=== PATIENT | male | born 1945 | race Caucasian/White ===

== ENCOUNTER → 2020-09-16 09:53 | Outpatient (REF) | payer MEDICARE, SELFPAY | LOC: HO.SL 09:53 | PROVIDERS: PCP Internal Medicine; Visit Provider Hospitalist | DX: Z13.89 Encounter for screening for other disorder (principal) ==

== ENCOUNTER → 2021-01-07 09:00 | Outpatient (REF) | payer MEDICARE, SELFPAY | LOC: HO.SL 09:00 | PROVIDERS: Visit Provider Hospitalist | DX: G47.33 Obstructive sleep apnea (adult) (pediatric) (principal); R40.0 Somnolence; R06.83 Snoring | CPT/HCPCS: 95806 ==

== ENCOUNTER → 2021-01-07 09:40 | Outpatient (BNVA) | payer MEDICARE, SELFPAY | PROVIDERS: PCP Internal Medicine; Visit Provider Hospitalist | DX: J39.8 Other specified diseases of upper respiratory tract (principal); J41.8 Mixed simple and mucopurulent chronic bronchitis; G47.33 Obstructive sleep apnea (adult) (pediatric); J31.0 Chronic rhinitis | CPT/HCPCS: 99212 ==

== ENCOUNTER → 2021-03-17 13:42 | Outpatient (BNVA) | payer MEDICARE, SELFPAY | PROVIDERS: PCP Internal Medicine; Visit Provider Hospitalist | DX: J39.8 Other specified diseases of upper respiratory tract (principal); J41.8 Mixed simple and mucopurulent chronic bronchitis; J31.0 Chronic rhinitis; J18.0 Bronchopneumonia, unspecified organism; G47.33 Obstructive sleep apnea (adult) (pediatric) | CPT/HCPCS: 99212 ==

== ENCOUNTER → 2021-03-25 10:44 | Outpatient (BNVA) | payer MEDICARE, SELFPAY | PROVIDERS: PCP Internal Medicine; Visit Provider Hospitalist | DX: Z13.89 Encounter for screening for other disorder (principal) | CPT/HCPCS: 96372; 99212 ==

== ENCOUNTER 2021-03-25 12:17 | Inpatient (IN) | payer OTHER, MEDICARE, SELFPAY ==
[2021-03-25] VITALS (12 sets, daily range): BP systolic 136–188; BP diastolic 63–82; PULSE 80–95; RESP 14–24; TEMP 36.7–37; O2SAT 91–97; BMI 29.5
--- NOTE | ~2021-03-25 | XR_ITS ---
EXAMINATION: XR CHEST CLINICAL INFORMATION: Hypoxia. Crackles. Evaluate for pneumonia. COMPARISON: Previous chest x-ray from yesterday TECHNIQUE: Frontal view of the chest was obtained. FINDINGS: The cardiac and mediastinal contours are stable. There is atelectasis at the left lung base. The lungs are otherwise clear. There is no pleural effusion or pneumothorax. There are degenerative changes of the spine. XR/XR chest 1V IMPRESSION: Atelectasis at the left lung base.
--- NOTE | ~2021-03-25 | XR_ITS ---
EXAMINATION: XR CHEST CLINICAL INFORMATION: Shortness of breath COMPARISON: None TECHNIQUE: Frontal view of the chest was obtained. FINDINGS: No significant abnormality is noted involving the heart, lungs, mediastinum, bony thorax or soft tissues. XR/XR chest 1V IMPRESSION: Unremarkable examination.
--- NOTE | 2021-03-25 12:44 | ECG_ITS ---
Test Reason : SHORT OF BREATH Blood Pressure : / mmHG Vent. Rate : 080 BPM Atrial Rate : 080 BPM P-R Int : 158 ms QRS Dur : 094 ms QT Int : 424 ms P-R-T Axes : 090 071 071 degrees QTc Int : 489 ms Normal sinus rhythm Nonspecific ST abnormality Prolonged QT Abnormal ECG No previous ECGs available Referred By: France Lord Electronically Signed By:MARY WALKER MD
[2021-03-25 13:31] LABS: Adenovirus PCR Not Detected (Not Detect.); Bordetella parapertussis PCR Not Detected (Not Detect.); Bordetella pertussis PCR Not Detected (Not Detect.); Chlamydia pneumoniae PCR Not Detected (Not Detect.); Coronavirus 229E PCR Not Detected (Not Detect.); Coronavirus HKU1 PCR Not Detected (Not Detect.); Coronavirus NL63 PCR Not Detected (Not Detect.); Coronavirus OC43 PCR Not Detected (Not Detect.); Human metapneumovirus PCR Not Detected (Not Detect.); Influenza A PCR Not Detected (Not Detect.); Influenza B PCR Not Detected (Not Detect.); Mycoplasma pneumoniae PCR Not Detected (Not Detect.); Parainfluenza 1 PCR Not Detected (Not Detect.); Parainfluenza 2 PCR Not Detected (Not Detect.); Parainfluenza 3 PCR Not Detected (Not Detect.); Parainfluenza 4 PCR Not Detected (Not Detect.); RSV PCR Not Detected (Not Detect.); SARS-CoV-2 PCR Not Detected (Not Detect.)
[2021-03-25 13:36] LABS: Basophils Percent Auto 0.2 % (0-2); Hematocrit 41.9 % (42-52); Hemoglobin 14.3 g/dl (14.0-18.0); Imm Gran Abs Auto 0.14 X10*3/uL (0.00-0.03); Imm Gran Pct Auto 1.2 % (0.0-0.4); Lymphocytes Absolute Auto 0.4 X10*3/uL (1.2-4.9); Lymphocytes Percent Auto 3.4 % (20-40); MANUAL DIFF FLAG SCAN; Mean Corpuscular HGB Conc 34.1 g/dl (31.0-36.0); Mean Corpuscular Hemoglobin 31.5 pg (27.0-33.0); Mean Corpuscular Volume 92.3 fL (80-98); Mean Platelet Volume 9.7 fL (9.4-12.4); Monocytes Absolute Auto 0.4 X10*3/uL (0.1-1.2); Monocytes Percent Auto 3.1 % (2-11); Neutrophils Absolute Auto 11.2 X10*3/uL (2.0-8.3); Neutrophils Percent Auto 92.1 % (45-73); Platelet Count 192 X10*3/uL (160-400); Red Blood Count 4.54 X10*6/uL (4.60-5.80); Red Cell Distribution Width 13.2 % (11.0-16.0); SCAN SMEAR FLAG 1; White Blood Count 12.1 X10*3/uL (4.8-10.8)
[2021-03-25 13:39] LABS: INTERNATIONAL NORM RATIO 1.7 (0.9-1.1); Prothrombin Time 20.3 SEC (10.8-13.0)
[2021-03-25 13:59] LABS: SLIDE REVIEW VERIFIED
[2021-03-25] MEDS: Magnesium Sulfate/H2O 2 GM/50 ML PIGGYBACK IV (13:59)
[2021-03-25 14:03] LABS: Alanine Aminotransferase 26 U/L (0-40); Albumin Level 4.1 g/dL (3.5-5.0); Alkaline Phosphatase 52 U/L (39-117); Anion Gap 19 (12-20); Aspartate Amino Transferase 16 U/L (5-37); Bilirubin Total 0.4 mg/dL (0.0-1.0); Blood Urea Nitrogen 28 mg/dL (9-16); Calcium 9.9 mg/dL (8.4-10.2); Carbon Dioxide 24 mmol/L (22-29); Chloride 99 mmol/L (96-108); Creatinine Clr Calc Pharmacy 53.3; Estimated Glomerular Filt Rate 46; Glucose Random 265 mg/dL (60-115); Magnesium 1.9 mg/dL (1.6-2.6); Potassium 4.7 mmol/L (3.3-5.1); Sodium 137 mmol/L (135-145); Total Protein 6.5 g/dL (6.5-8.0)
[2021-03-25 14:09] LABS: B Type Natriuretic Peptide 26 pg/mL (<100)
[2021-03-25 14:45] LABS: Rhino/Enterovirus PCR Detected (Not Detect.)
--- NOTE | 2021-03-25 15:14 | ED.SOB ---
HPI - SOB/Dyspnea General Chief Complaint: Dyspnea Stated Complaint: o2 low Time Seen by Provider: 03/25/21 12:28 Source: patient and family Mode of arrival: ambulatory Limitations: no limitations History of Present Illness HPI Narrative: 75-year-old male with a past medical history of chronic bronchitis, COPD, tracheobronchomalacia presenting to the ED after being sent by the usability architect Dr. Andrew Elkins for worsening respiratory symptoms which include cough, chest congestion, wheezing and shortness of breath for the past 3 weeks. he was being treated with p.o. steroids and his inhalers by the usability architect as an outpatient basis although over the weekend his symptoms got worse and he went to ER at [facility]. He was given additional steroids. He was kept on the doxycycline. The patient continued using the nebulizer around the clock. He also had a chest x-ray demonstrating opacity to the left lower lung zone. Also dealing with thrush from being on the steroids. He was given 125 mg of IM Solu-Medrol and 2 treatments with Xopenex while at the usability architect's office and then they ambulated the patient after the IM steroids and the 2 treatments and his oxygen saturation desatted to 86% on room air therefore they symptom here for further evaluation and treatment. MD elicited complaint: shortness of breath and cough Pertinent past history: COPD and other ( Chronic bronchitis and tracheobronchomalacia) Onset (ago): week(s) ( 3 weeks worse over the weekend) Context: recent illness Timing: constant and progressively worsening Severity: severe Exacerbating factors: movement, coughing, inspiration, talking, deep breaths and other ( walking) Relieving factors: rest and upright position Known history of: COPD and other ( chronic bronchitis and tracheobronchomalacia) Associated symptoms: wheezing and chest congestion Treatment prior to arrival: none ( IM 125 mg of Solu-Medrol, 2 Xopenex treatments and multiple courses of steroids) Related Data Home oxygen amount: none Home Medications Medication Instructions Recorded Confirmed diltiazem HCl 240 mg 240 mg PO DAILY 09/08/20 03/25/21 capsule,extended release 24 hr metoprolol succinate 25 mg 25 mg PO BEDTIME 09/08/20 03/25/21 tablet,extended release 24 hr albuterol sulfate 2.5 mg INHALATION Q4-6H PRN 01/07/21 03/25/21 apixaban 5 mg tablet 5 mg PO BID 01/07/21 03/25/21 cetirizine 10 mg tablet 10 mg PO DAILY PRN 01/07/21 03/25/21 rosuvastatin 20 mg tablet 20 mg PO BEDTIME 01/07/21 03/25/21 nitroglycerin 0.4 mg sublingual 0.4 mg SUBLINGUAL Q5M PRN 03/17/21 03/25/21 tablet amiodarone 50 mg PO MOWEFR 03/25/21 03/25/21 cholecalciferol (vitamin D3) 100 mcg PO DAILY 03/25/21 03/25/21 [Vitamin D3] ipratropium bromide 1 spray INTRANASAL BEDTIME 03/25/21 03/25/21 metformin 2 tab PO BIDWM 03/25/21 03/25/21 prednisone 60 mg PO DAILY 03/25/21 03/25/21 valsartan-hydrochlorothiazide 1 tab PO DAILY 03/25/21 03/25/21 Previous Rx's Medication Instructions Recorded tiotropium bromide 2.5 2 inh INHALATION DAILY #3 ea 12/29/20 mcg/actuation mist for inhalation fluticasone 500 mcg-salmeterol 50 1 inh INHALATION BID #60 ea 02/03/21 mcg/dose blistr powdr for inhalation doxycycline hyclate 100 mg capsule 100 mg PO BID 10 Days #20 cap 03/17/21 nystatin 500,000 unit tablet 500,000 unit PO TID 10 Days #30 tab 03/24/21 Allergies Allergy/AdvReac Type Severity Reaction Status Date / Time No Known Allergies Allergy Verified 03/25/21 12:46 Review of Systems Review of Systems: Constitutional : No Weight loss, No Fever, No Chills, No Night Sweats, No Fatigue, No Malaise ENT/Mouth : No Hearing loss, No Ear Pain, No Nasal Congestion, No Sinus Pain, No Hoarseness, No sore throat, No Rhinorrhea, No Swallowing Difficulty Eyes: No Eye Pain, No Swelling, No Redness, No Foreign Body, No Discharge, No Vision Changes Cardiovascular : positive shortness of breath /dyspnea on exertion/orthopnea, No Chest Pain, No Edema, No extremity swelling, No Palpitations Respiratory : Positive Cough / sputum/wheezing Gastrointestinal : No Nausea, No Vomiting, No Diarrhea, No abdominal Pain, No Hematochezia, No Melena Genitourinary : No irregular bleeding, No Dysuria, No Urinary Frequency, No Hematuria, No Urinary Incontinence, No Urgency, No Flank Pain, No Urinary Flow Changes, No Hesitancy Musculoskeletal : No joint pain, No Myalgias, No Joint Swelling Skin : No Skin Lesions, No rash Neuro : No Weakness, No Numbness, No Paresthesias, No Loss of Consciousness, No Dizziness, No Headache Psych : No Anxiety/Panic, No Depression, No SI/HI/AH/VH Heme/Lymph: No Bruising, No Bleeding,No Lymphadenopathy Endocrine : No Polyuria, No Polydipsia, No Temperature Intolerance Yes all other systems are reviewed and are negative [facility] Past Medical History Attestation statement: The following information was validated with the patient. Medical History Bronchopneumonia Chronic rhinitis COPD (chronic obstructive pulmonary disease) AIRAM (obstructive sleep apnea) Tracheobronchomalacia Social History Social History Alcohol intake: never Patient Tobacco Use Status: Never used Tobacco Use of substances other than those prescribed or required for medical reasons: No Advance Directives: Yes Advance Directives Information Provided: Yes Advance Directives on File: No Physical Exam Vital Signs: Vital Signs: Last Vital Signs Pulse 80 03/25/21 14:41 Resp 24 H 03/25/21 14:41 BP 183/76 H 03/25/21 14:41 Pulse Ox 96 03/25/21 14:41 Oxygen Flow Rate 2 03/25/21 12:27 Body Mass Index 29.5 vital signs have been reviewed as normal and appeared to be correct. Blood pressure Hypertensive 169/72. Heart rate normal. Respiration rate normal. Temperature normal. Oxygen saturation hypoxic now on 2 L of nasal cannula oxygen saturating at 95% on the 2 L . Appearance: Alert. Oriented X3. Acute respiratory acute distress. Head: Normal external exam. Normocephalic. Atraumatic. Eyes: PERRLA. EOMI. Conjunctiva and sclera normal. Eyelids normal. ENT: Pharynx normal. Uvula midline. Moist mucous membranes. No trismus noted. No drooling noted. No muffled voice noted. Neck: Normal inspection. Neck supple. FROM. No adenopathy. Thyroid Normal. No meningeal signs. No neck mass noted. CVS: Normal heart rate and rhythm. Heart sound normal. Pulses normal throughout. No murmurs/rales/gallops. Respiratory: Acute respiratory distress pain with inspiration mild decreased breath sounds. No wheezes/rales/rhonchi noted. Chest nontender. No accessory muscle usage noted or decreased air movement noted. Abdomen: Soft and nontender. Bowel sounds normal in all 4 quadrants. No distention noted. No organomegaly noted. No visible injury noted. Back: Full range of motion noted. No rashes/lesion/induration/fluctuance or signs of infection noted. Skin: Skin warm and dry. Normal skin color. Normal skin turgor. No rashes/lesions/lacerations noted. Extremities: positive lower extremity edema bilaterally. No calf tenderness is noted. Extremities exhibit normal range of motion. Extremities nontender. Neuro: Oriented X 3. No motor deficit. No sensory deficit. Reflexes normal. Normal steady gait. No focal neuro deficits noted. Vascular: + radial pulses/+ 2 distal pedal pulses/+2 dorsalis pedis b/l. Normal cap refill. No cyanosis noted to upper extremity nails and lower extremity toes nails. Course Course Course Narrative: 12:43 - 75-year-old male with a past medical history of chronic bronchitis, COPD, tracheobronchomalacia presenting to the ED after being sent by the usability architect Dr. Andrew Elkins for worsening respiratory symptoms which include cough, chest congestion, wheezing and shortness of breath for the past 3 weeks. He was being treated with p.o. steroids and his inhalers by the usability architect as an outpatient basis although over the weekend his symptoms got worse and he went to ER at [facility]. He was given additional steroids. He was kept on the doxycycline. The patient continued using the nebulizer around the clock. He also had a chest x-ray demonstrating opacity to the left lower lung zone. Also dealing with thrush from being on the steroids. He was given 125 mg of IM Solu-Medrol and 2 treatments with Xopenex while at the usability architect's office and then they ambulated the patient after the IM steroids and the 2 treatments and his oxygen saturation desatted to 86% on room air therefore they symptom here for further evaluation and treatment. Plan: Labs, chest x-ray, EKG, respiratory panel. Provide 2 mg of IV magnesium and 10 mg of Robitussin with codeine then re-evaluate. Reevaluation(s) Reevaluation #1: - White blood cell count [id number] although this is most likely related to the patient's steroid usage over the past 3 weeks. BUN and creatinine 28/1.50 patient is most likely dehydrated. Random glucose 265 this is most likely related to the steroid usage for the past 3 weeks. All other labs are within normal limits. chest x-ray was negative for pneumonia or any other acute processes. EKG normal sinus rhythm with ventricular rate of [address] abnormalities and a prolonged QT of 424 milliseconds otherwise no acute ischemic changes are noted. Patient positive for Entero/Rhino virus. Negative for all other viruses including flu and COVID. - Therefore at this time patient will be admitted for chronic bronchitis being exacerbated from Entero/Rhino Virus. KRYS From dehydration. Not sepsis. therefore at this time patient will be admitted. Patient and family at bedside understand and agree with this plan. Time: 15:36 MDM - SOB/Dyspnea Medical Records Attestation: I reviewed the patient's medical records. Lab Data Attestation: I reviewed the patient's lab results. Result diagrams: 03/25/21 13:20 03/25/21 13:20 Labs: Lab Results 03/25/21 03/25/21 03/25/21 Range/Units 13:20 13:20 13:20 WBC 12.1 H (4.8-10.8) X10*3/uL RBC 4.54 L (4.60-5.80) X10*6/uL Hgb 14.3 (14.0-18.0) g/dl Hct 41.9 L (42-52) % MCV 92.3 (80-98) fL MCH 31.5 (27.0-33.0) pg MCHC 34.1 (31.0-36.0) g/dl RDW 13.2 (11.0-16.0) % Plt Count 192 (160-400) X10*3/uL MPV 9.7 (9.4-12.4) fL Immature Gran % (Auto) 1.2 H (0.0-0.4) % Neut % (Auto) 92.1 H (45-73) % Lymph % (Auto) 3.4 L (20-40) % [place] % (Auto) 3.1 (2-11) % Eos % (Auto) 0.0 (0-4) % Baso % (Auto) 0.2 (0-2) % Lymph # (Auto) 0.4 L (1.2-4.9) X10*3/uL [place] # (Auto) 0.4 (0.1-1.2) X10*3/uL Eos # (Auto) 0.0 (0.0-0.4) X10*3/uL Baso # (Auto) 0.0 (0.0-0.2) X10*3/uL Abs Immat Gran (auto) 0.14 H (0.00-0.03) X10*3/uL Absolute Neuts (auto) 11.2 H (2.0-8.3) X10*3/uL Absolute Nucleated RBC 0.000 (0.0-0.012) X10*3/uL Nucleated RBC % (auto) 0.0 (0.0-0.2) /100WBC Smear Tech's Comments VERIFIED PT 20.3 H (10.8-13.0) SEC INR 1.7 H (0.9-1.1) Sodium 137 (135-145) mmol/L Potassium 4.7 (3.3-5.1) mmol/L Chloride 99 (96-108) mmol/L Carbon Dioxide 24 (22-29) mmol/L Anion Gap 19 (12-20) BUN 28 H (9-16) mg/dL Creatinine 1.50 H (0.5-1.4) mg/dL Estim Creat Clear Calc 53.3 Estimated GFR 46 Random Glucose 265 H (60-115) mg/dL Calcium 9.9 (8.4-10.2) mg/dL Magnesium 1.9 (1.6-2.6) mg/dL Total Bilirubin 0.4 (0.0-1.0) mg/dL AST 16 (5-37) U/L ALT 26 (0-40) U/L Alkaline Phosphatase 52 (39-117) U/L B-Natriuretic Peptide (<100) pg/mL Total Protein 6.5 (6.5-8.0) g/dL Albumin 4.1 (3.5-5.0) g/dL Respiratory Panel Mueller Adenovirus (Rapid PCR) (Not Detect.) B.pert (TEM-PCR) (Not Detect.) B.parapertussis DNA PCR (Not Detect.) C. pneumoniae DNA (PCR) (Not Detect.) Coronavirus OC43 (PCR) (Not Detect.) Coronavirus HKU1 (PCR) (Not Detect.) Coronavirus 229E (PCR) (Not Detect.) Coronavirus NL63 (PCR) (Not Detect.) Human Metapneumovir PCR (Not Detect.) Influenza A (RT-PCR) (Not Detect.) Influenza B (RT-PCR) (Not Detect.) M. pneumoniae (PCR) (Not Detect.) Parainfluenza 1 (PCR) (Not Detect.) Parainfluenza 2 (PCR) (Not Detect.) Parainfluenza 3 (PCR) (Not Detect.) Parainfluenza 4 (PCR) (Not Detect.) RSV (PCR) (Not Detect.) Entero/Rhino (PCR) (Not Detect.) SARS-CoV-2 RNA (RT-PCR) (Not Detect.) 03/25/21 03/25/21 Range/Units 13:20 13:20 WBC (4.8-10.8) X10*3/uL RBC (4.60-5.80) X10*6/uL Hgb (14.0-18.0) g/dl Hct (42-52) % MCV (80-98) fL MCH (27.0-33.0) pg MCHC (31.0-36.0) g/dl RDW (11.0-16.0) % Plt Count (160-400) X10*3/uL MPV (9.4-12.4) fL Immature Gran % (Auto) (0.0-0.4) % Neut % (Auto) (45-73) % Lymph % (Auto) (20-40) % [place] % (Auto) (2-11) % Eos % (Auto) (0-4) % Baso % (Auto) (0-2) % Lymph # (Auto) (1.2-4.9) X10*3/uL [place] # (Auto) (0.1-1.2) X10*3/uL Eos # (Auto) (0.0-0.4) X10*3/uL Baso # (Auto) (0.0-0.2) X10*3/uL Abs Immat Gran (auto) (0.00-0.03) X10*3/uL Absolute Neuts (auto) (2.0-8.3) X10*3/uL Absolute Nucleated RBC (0.0-0.012) X10*3/uL Nucleated RBC % (auto) (0.0-0.2) /100WBC Smear Tech's Comments PT (10.8-13.0) SEC INR (0.9-1.1) Sodium (135-145) mmol/L Potassium (3.3-5.1) mmol/L Chloride (96-108) mmol/L Carbon Dioxide (22-29) mmol/L Anion Gap (12-20) BUN (9-16) mg/dL Creatinine (0.5-1.4) mg/dL Estim Creat Clear Calc Estimated GFR Random Glucose (60-115) mg/dL Calcium (8.4-10.2) mg/dL Magnesium (1.6-2.6) mg/dL Total Bilirubin (0.0-1.0) mg/dL AST (5-37) U/L ALT (0-40) U/L Alkaline Phosphatase (39-117) U/L B-Natriuretic Peptide 26 (<100) pg/mL Total Protein (6.5-8.0) g/dL Albumin (3.5-5.0) g/dL Respiratory Panel Mueller See Note Adenovirus (Rapid PCR) Not Detected (Not Detect.) B.pert (TEM-PCR) Not Detected (Not Detect.) B.parapertussis DNA PCR Not Detected (Not Detect.) C. pneumoniae DNA (PCR) Not Detected (Not Detect.) Coronavirus OC43 (PCR) Not Detected (Not Detect.) Coronavirus HKU1 (PCR) Not Detected (Not Detect.) Coronavirus 229E (PCR) Not Detected (Not Detect.) Coronavirus NL63 (PCR) Not Detected (Not Detect.) Human Metapneumovir PCR Not Detected (Not Detect.) Influenza A (RT-PCR) Not Detected (Not Detect.) Influenza B (RT-PCR) Not Detected (Not Detect.) M. pneumoniae (PCR) Not Detected (Not Detect.) Parainfluenza 1 (PCR) Not Detected (Not Detect.) Parainfluenza 2 (PCR) Not Detected (Not Detect.) Parainfluenza 3 (PCR) Not Detected (Not Detect.) Parainfluenza 4 (PCR) Not Detected (Not Detect.) RSV (PCR) Not Detected (Not Detect.) Entero/Rhino (PCR) Detected A (Not Detect.) SARS-CoV-2 RNA (RT-PCR) Not Detected (Not Detect.) Imaging Data Chest x-ray: Attestation: I personally reviewed and interpreted this imaging study as follows: Radiologist's impression: FINDINGS: No significant abnormality is noted involving the heart, lungs, mediastinum, bony thorax or soft tissues. XR/XR chest 1V IMPRESSION: Unremarkable examination. ECG Data Attestation: I personally reviewed and interpreted this ECG as follows: ECG interpretation date: 03/25/21 ECG interpretation time: 13:38 Interpretation: Normal sinus rhythm and trich rate of [address] abnormalities and a prolonged QT at 424 milliseconds otherwise no acute ischemic changes are noted. No prior EKGs to compare to at this time. Critical Care Time Critical Care Time Critical Care Time: Yes Total Critical Care Time: 60 Attestation: I personally attest to this time spent taking care of the patient Discharge Plan Discharge Clinical Impression: Chronic bronchitis, Tracheobronchomalacia, Rhinovirus Patient Disposition: Admitted As Inpatient Prescriptions: No Action tiotropium bromide 2.5 mcg/actuation mist 2 inh inhalation DAILY Qty: 3 RF: 3 fluticasone propion-salmeterol [Advair Diskus] 500-50 mcg/dose blister with device 1 inh inhalation BID Qty: 60 RF: 3 nystatin 500,000 unit tablet 500,000 unit PO TID 10 Days Qty: 30 RF: 1 metformin 500 mg tablet 2 tab PO BIDWM RF: 0 ipratropium bromide 21 mcg (0.03 %) spray,non-aerosol 1 spray intranasal BEDTIME RF: 0 valsartan-hydrochlorothiazide 160-25 mg tablet 1 tab PO DAILY RF: 0 prednisone 20 mg tablet 60 mg PO DAILY RF: 0 amiodarone 100 mg Tablet 50 mg PO MOWEFR RF: 0 cholecalciferol (vitamin D3) [Vitamin D3] 50 mcg (2,000 unit) Tablet 100 mcg PO DAILY RF: 0 rosuvastatin [Crestor] 20 mg tablet 20 mg PO BEDTIME RF: 0 Eliquis 5 mg tablet 5 mg PO BID RF: 0 cetirizine [Zyrtec] 10 mg tablet 10 mg PO DAILY PRN (Reason: Allergy Symptoms) RF: 0 albuterol sulfate 2.5 mg /3 mL (0.083 %) solution for nebulization 2.5 mg inhalation Q4-6H PRN (Reason: Shortness Of Breath) RF: 0 nitroglycerin 0.4 mg tablet, sublingual 0.4 mg sublingual Q5M PRN (Reason: Chest Pain) RF: 0 doxycycline hyclate 100 mg capsule 100 mg PO BID 10 Days Qty: 20 RF: 0 metoprolol succinate 25 mg tablet extended release 24 hr 25 mg PO BEDTIME RF: 0 diltiazem HCl 240 mg capsule,extended release 24hr 240 mg PO DAILY RF: 0
--- NOTE | 2021-03-25 15:22 | PHA.MEDREC ---
Pharmacy Consult ? Medication Reconciliation Pharmacy has completed the medication reconciliation.
[2021-03-25] MEDS: guaiFEN/Codeine SF 200/20/10ML 10 ML LIQUID PO (15:25)
--- NOTE | 2021-03-25 16:34 | PM.IMHP ---
History of Present Illness Date of Service: 03/25/21 Chief Complaint: shortness of breath, wheezes a 75 years old male with PMH of bronchitis, COPD, trachobronchomalacia , AFib, CAD among others who presented to the hospital as a referral from machine packaging technician for worsening shortness of breath and hypoxemia. The patient has been complaining of 3 weeks of worsening shortness of breath, coughing and chest congestion. He was treated with p.o. steroids and inhaler by his machine packaging technician but never recover back to baseline. Was visiting the office again today when he was found to be hypoxic at 86% on room air with significant dyspnea on exertion. He is complaining also of a thrush in his mouth mainly from using steroids for the last couple of weeks. Admitted for further evaluation and treatment. Review of Systems Review of Systems: No fever, chills or weakness No chest pain, palpitation Shortness of breath, dyspnea of exertion, bouts of cough, congestion in the chest No abdominal pain, nausea or vomiting No urinary symptoms No any rash or wounds PMFSH Medical History Bronchopneumonia Chronic rhinitis COPD (chronic obstructive pulmonary disease) AIRAM (obstructive sleep apnea) Tracheobronchomalacia Social History Alcohol intake: never Patient Tobacco Use Status: Never used Tobacco Use of substances other than those prescribed or required for medical reasons: No Advance Directives: Yes Advance Directives Information Provided: Yes Advance Directives on File: No Meds Allergies Allergy/AdvReac Type Severity Reaction Status Date / Time No Known Allergies Allergy Verified 03/25/21 12:46 Active Medications: Current Medications Generic Name Dose Route Start Last Admin Trade Name Freq PRN Reason Stop Dose Admin Sodium Chloride 1,000 mls @ 999 mls/hr 03/25/21 16:30 Ns IVCONT 03/25/21 17:30 .Q1H1M [facility] Consult 1 each 03/25/21 13:01 Consult Rx Perform Med Rec MISCELLANE ONCE PRN Consult order Home Medications Medication Instructions Recorded Confirmed Last Taken Type diltiazem HCl 240 mg 240 mg PO DAILY 09/08/20 03/25/21 Unknown History capsule,extended release 24 hr metoprolol succinate 25 mg 25 mg PO BEDTIME 09/08/20 03/25/21 03/25/21 History tablet,extended release 24 hr albuterol sulfate 2.5 mg INHALATION Q4-6H PRN 01/07/21 03/25/21 03/25/21 History apixaban 5 mg tablet 5 mg PO BID 01/07/21 03/25/21 03/25/21 History cetirizine 10 mg tablet 10 mg PO DAILY PRN 01/07/21 03/25/21 03/25/21 History rosuvastatin 20 mg tablet 20 mg PO BEDTIME 01/07/21 03/25/21 03/24/21 History nitroglycerin 0.4 mg sublingual 0.4 mg SUBLINGUAL Q5M PRN 03/17/21 03/25/21 Unknown History tablet amiodarone 50 mg PO MOWEFR 03/25/21 03/25/21 03/25/21 History cholecalciferol (vitamin D3) 100 mcg PO DAILY 03/25/21 03/25/21 03/25/21 History [Vitamin D3] ipratropium bromide 1 spray INTRANASAL BEDTIME 03/25/21 03/25/21 03/25/21 History metformin 2 tab PO BIDWM 03/25/21 03/25/21 03/25/21 History prednisone 60 mg PO DAILY 03/25/21 03/25/21 03/25/21 History valsartan-hydrochlorothiazide 1 tab PO DAILY 03/25/21 03/25/21 03/25/21 History Physical Exam Vital Signs and Narrative: Vital Signs: Last Vital Signs Temp 98.0 F 03/25/21 15:26 Pulse 84 03/25/21 15:26 Resp 14 03/25/21 15:26 BP 169/72 H 03/25/21 15:26 Pulse Ox 95 03/25/21 15:26 Oxygen Flow Rate 2 03/25/21 12:27 Body Mass Index 29.5 Const: Other: Constitutional : Alert, oriented, in mild respiratory distress Neck : Normal inspection, Supple Cardiovascular : RRR, S1 S2, no lower extremity edema Respiratory : decreasebilateral air entry, no crackles, bilateral coarse wheezes or rhonchi Gastrointestinal: soft, lax, Normal bowel sounds, Non tender Skin : Warm/Dry, No rash Neurological : Alert & oriented x3, No focal deficit Results Labs CBC and Chem 7: 03/25/21 13:20 03/25/21 13:20 Labs: Laboratory Results - last 24 hr 03/25/21 03/25/21 03/25/21 13:20 13:20 13:20 MCV 92.3 MCH 31.5 MCHC 34.1 RDW 13.2 Plt Count 192 MPV 9.7 Immature Gran % (Auto) 1.2 H Neut % (Auto) 92.1 H Lymph % (Auto) 3.4 L Rooks % (Auto) 3.1 Eos % (Auto) 0.0 Baso % (Auto) 0.2 Lymph # (Auto) 0.4 L Rooks # (Auto) 0.4 Eos # (Auto) 0.0 Baso # (Auto) 0.0 Abs Immat Gran (auto) 0.14 H Absolute Neuts (auto) 11.2 H Absolute Nucleated RBC 0.000 Nucleated RBC % (auto) 0.0 Smear Tech's Comments VERIFIED PT 20.3 H INR 1.7 H Anion Gap 19 Estim Creat Clear Calc 53.3 Estimated GFR 46 Random Glucose 265 H Calcium 9.9 Magnesium 1.9 Total Bilirubin 0.4 AST 16 ALT 26 Alkaline Phosphatase 52 B-Natriuretic Peptide Total Protein 6.5 Albumin 4.1 Respiratory Panel Mueller Adenovirus (Rapid PCR) B.pert (TEM-PCR) B.parapertussis DNA PCR C. pneumoniae DNA (PCR) Coronavirus OC43 (PCR) Coronavirus HKU1 (PCR) Coronavirus 229E (PCR) Coronavirus NL63 (PCR) Human Metapneumovir PCR Influenza A (RT-PCR) Influenza B (RT-PCR) M. pneumoniae (PCR) Parainfluenza 1 (PCR) Parainfluenza 2 (PCR) Parainfluenza 3 (PCR) Parainfluenza 4 (PCR) RSV (PCR) Entero/Rhino (PCR) SARS-CoV-2 RNA (RT-PCR) 03/25/21 03/25/21 13:20 13:20 MCV MCH MCHC RDW Plt Count MPV Immature Gran % (Auto) Neut % (Auto) Lymph % (Auto) Rooks % (Auto) Eos % (Auto) Baso % (Auto) Lymph # (Auto) Rooks # (Auto) Eos # (Auto) Baso # (Auto) Abs Immat Gran (auto) Absolute Neuts (auto) Absolute Nucleated RBC Nucleated RBC % (auto) Smear Tech's Comments PT INR Anion Gap Estim Creat Clear Calc Estimated GFR Random Glucose Calcium Magnesium Total Bilirubin AST ALT Alkaline Phosphatase B-Natriuretic Peptide 26 Total Protein Albumin Respiratory Panel Mueller See Note Adenovirus (Rapid PCR) Not Detected B.pert (TEM-PCR) Not Detected B.parapertussis DNA PCR Not Detected C. pneumoniae DNA (PCR) Not Detected Coronavirus OC43 (PCR) Not Detected Coronavirus HKU1 (PCR) Not Detected Coronavirus 229E (PCR) Not Detected Coronavirus NL63 (PCR) Not Detected Human Metapneumovir PCR Not Detected Influenza A (RT-PCR) Not Detected Influenza B (RT-PCR) Not Detected M. pneumoniae (PCR) Not Detected Parainfluenza 1 (PCR) Not Detected Parainfluenza 2 (PCR) Not Detected Parainfluenza 3 (PCR) Not Detected Parainfluenza 4 (PCR) Not Detected RSV (PCR) Not Detected Entero/Rhino (PCR) Detected A SARS-CoV-2 RNA (RT-PCR) Not Detected Imaging Radiologist's Impressions: Impressions Chest X-Ray 03/25/21 12:44 IMPRESSION: Unremarkable examination. Assessment and Plan (1) Acute respiratory failure with hypoxia: Status: Acute (2) Rhinovirus: Status: Acute (3) Acute bronchitis: Status: Acute a 75 years old male with PMH of bronchitis, COPD, trachobronchomalacia , AFib, CAD among others who presented to the hospital as a referral from machine packaging technician for worsening shortness of breath and hypoxemia. acute hypoxic respiratory failure Secondary to acute bronchitis Rhino virus infection Treatment with oxygen supplement, bronchodilator nebulizers and IV steroids Add doxycycline IV b.i.d. 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
[2021-03-25] MEDS: 0.9 % Sodium Chloride 1,000 ML 999 ML IVCONT (17:49)
--- NOTE | 2021-03-25 20:24 | PC.NURSE ---
[facility] called and Anand pan will call back for report.
[2021-03-25 22:31] LABS: Glucose, Whole Blood 353 mg/dL (60-115)
[2021-03-25] MEDS: Apixaban 5 MG TABLET PO (22:46)
[2021-03-25] MEDS: Metoprolol Succinate ER 25 MG TAB.ER.24H PO (22:46)
[2021-03-25] MEDS: Nystatin Oral Susp 500,000 UNIT/5 ML ORAL.SUSP 500000 UNIT PO (22:46)
[2021-03-25] MEDS: methylPREDNISolone Sod Succ 40 MG/ML VIAL IVPUSH (22:47)
[2021-03-25] MEDS: Insulin Lispro 100 UNIT/ML 3 ML VIAL SUBCUT (22:48)
[2021-03-26] VITALS (10 sets, daily range): BP systolic 140–168; BP diastolic 68–90; PULSE 74–92; RESP 18–24; TEMP 36–36.8; O2SAT 89–98; BMI 29.7
--- NOTE | 2021-03-26 | ECG_ITS ---
Test Reason : chest pain Blood Pressure : / mmHG Vent. Rate : 084 BPM Atrial Rate : 084 BPM P-R Int : 142 ms QRS Dur : 096 ms QT Int : 414 ms P-R-T Axes : 045 058 077 degrees QTc Int : 489 ms Normal sinus rhythm with sinus arrhythmia Nonspecific ST and T wave abnormality Abnormal ECG When compared to the previous EKG of No significant changes seen Referred By: Lucinda Darling Electronically Signed By:MARY WALKER MD
[2021-03-26] MEDS: guaiFENesin DM 100/10/5 ML 5 ML SYRUP PO ×3 (01:13→15:44)
[2021-03-26] MEDS: methylPREDNISolone Sod Succ 40 MG/ML VIAL IVPUSH ×3 (05:30→21:05)
[2021-03-26 07:00] LABS: Hematocrit 42.9 % (42-52); Hemoglobin 14.6 g/dl (14.0-18.0); Mean Corpuscular Hemoglobin 31.4 pg (27.0-33.0); Mean Corpuscular Volume 92.3 fL (80-98); Mean Platelet Volume 10.2 fL (9.4-12.4); Platelet Count 193 X10*3/uL (160-400); Red Blood Count 4.65 X10*6/uL (4.60-5.80); White Blood Count 12.7 X10*3/uL (4.8-10.8)
[2021-03-26 07:15] LABS: Glucose, Whole Blood 244 mg/dL (60-115)
[2021-03-26] MEDS: Albuterol/Iprat 2.5/0.5MG 3 ML AMPUL.NEB INHALE ×4 (07:23→19:52)
[2021-03-26 07:33] LABS: Anion Gap 16 (12-20); Blood Urea Nitrogen 29 mg/dL (9-16); Calcium 9.5 mg/dL (8.4-10.2); Carbon Dioxide 26 mmol/L (22-29); Chloride 101 mmol/L (96-108); Creatinine Clr Calc Pharmacy 57.3; Estimated Glomerular Filt Rate 49; Glucose Random 244 mg/dL (60-115); Potassium 3.9 mmol/L (3.3-5.1); Sodium 139 mmol/L (135-145)
[2021-03-26] MEDS: Insulin Lispro 100 UNIT/ML 3 ML VIAL SUBCUT ×4 (07:36→21:14)
[2021-03-26] MEDS: Nystatin Oral Susp 500,000 UNIT/5 ML ORAL.SUSP 500000 UNIT PO ×4 (09:16→21:05)
--- NOTE | 2021-03-26 09:16 | MHC.CM.PN ---
CM MET WITH PT AND HIS WHO WAS AT BEDSIDE. PT REPORTEDLY LIVES WITH HIS AND IS INDEPENDENT WITH ALL CARE AND MOBILITY. PT USES A NEBULIZER AND HAS NO OTHER DME. 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 CM INFORMED THE PT DOES HAVE A HCP COMPLETED NAMING HIS HIS AGENT, COPY REQUESTED. PT CONFIRMS HIS PCP IS NICKO LOPEZ. IMM DELIVERED CURRENT DC PLAN IS HOME WITH NO SERVICES TO TRANSPORT
[2021-03-26] MEDS: Cholecalciferol (Vitamin D3) 25 MCG TABLET 100 MCG PO (09:17)
[2021-03-26] MEDS: dilTIAZem HCL CD 240 MG CAP.ER.DEG PO (09:17)
[2021-03-26] MEDS: Valsartan 160 MG TABLET PO (09:17)
[2021-03-26] MEDS: Apixaban 5 MG TABLET PO ×2 (09:17→21:06)
[2021-03-26] MEDS: guaiFENesin LA 600 MG TAB.ER.12H PO ×2 (09:27→21:06)
--- NOTE | 2021-03-26 09:33 | PM.EVENT ---
Event Note Date of Service: 03/26/21 Event Note: This patient was seen by me for pulmonary consultation and advice, this a.m.. He is well known to the Pulmonary office, and is followed up by Dr. Elkins, who actually referred him to emergency room for admission after his office visit yesterday. Complete note is dictated for pulmonary consultation. A: Ac. excerbation of COPD , sec to Ac. Bronchitis ( Viral ) and Thrush in upper Airways . Known case of COPD / Chronic Bronchitis , and Tracheo- malacia . P : Agree with the current TX . Avid inhaled steroids at this time , treat with Nystatin swishes . IV Solumedrol,Duo-Neb UDs , O2 , Doxycycline empericaly .
[2021-03-26 11:18] LABS: Glucose, Whole Blood 323 mg/dL (60-115)
--- NOTE | 2021-03-26 11:37 | CONS_ITS ---
DATE OF SERVICE: 03/26/2021 HISTORY OF PRESENT ILLNESS: This 75-year-old gentleman was admitted through the emergency room actually after being seen in the Pulmonary office on 03/25/2021. He has increased cough and shortness of breath for the last few days, which was not improving with outpatient treatment. When he was seen in the office yesterday, he was also noted to have hypoxemia with O2 saturation on room air 86%. Thus, he was sent to the emergency room, from where he has been admitted to the hospital for inpatient care. The patient denied any fever, chills, or chest pain. Main problem is urged to cough to clear mucus, which he cannot, and thus he becomes very fatigued and short of breath. He does have a problem of irritation in his throat and noted to have thrush, which is being treated for the past few weeks. Prior to this admission, he has not used oxygen at home. REVIEW OF SYSTEMS: Mainly includes respiratory symptoms as described above. Denies chest pain. Has paroxysmal atrial fibrillation, but that is under control. Denies any abdominal pain, nausea, or vomiting. Denies any urinary symptoms. Denies any systemic pains and aches. PAST MEDICAL HISTORY: Includes symptoms of chronic obstructive pulmonary disease for the past 3 to 5 years. The patient has had bronchoscopy by Dr. Elkins who felt that there was some evidence of tracheomalacia. The patient also has symptoms of chronic rhinitis with postnasal drip. His previous chest films have shown small segment of atelectasis in the left base. The patient has paroxysmal atrial fibrillation, which is being controlled with medications, currently on Cardizem and amiodarone, and there is a planning for ablative procedure in the near future. His pulmonary medications at home include Advair 500/50 one inhalation b.i.d., Spiriva Respimat 2 inhalations daily, albuterol sulfate 2 puffs q.6 hours p.r.n., and he is on frequent courses of prednisone. Also, has been treated with antibiotics quite frequently. For his rhinitis symptoms, he uses cetirizine 10 mg p.r.n. The patient is nonsmoker, quit more than 20 years ago. Denies any drinking or use of illicit drugs. PHYSICAL EXAMINATION: GENERAL: 75-year-old gentleman, very alert and orientated, and speaking normally without any respiratory distress. VITAL SIGNS: Currently, his temperature is 98 degrees Fahrenheit, respiratory rate 14, pulse rate is 84, O2 saturation 95%. THROAT: The patient has moderately swollen uvula with a red discoloration. No definite white spots are noted. NECK: No jugular venous distention. Trachea midline. No lymphadenopathy. CHEST: Percussion note is resonant. Breath sounds are slightly distant with prolonged expiratory phase. I did not hear any crepitations or wheezes. CARDIAC: Sounds are distant. Rhythm is regular at this time. No murmurs. ABDOMEN: Flat, soft, and nontender. EXTREMITIES: No edema or varicosities. No clubbing. Peripheral pulses normal. LABORATORY DATA: The respiratory panel/serology shows positive for rhinovirus, but all other tests are negative. COVID-2 test is negative. Chest x-ray: Both lungs are inflated normally, and no infiltrate or consolidation is noted. No mass. CBC: White cell count 12.1, which is slightly elevated, probably due to steroids. Other tests are normal. CLINICAL IMPRESSION: 1. Acute exacerbation of chronic obstructive pulmonary disease, most likely secondary to acute viral bronchitis/thrush of the upper airways. 2. The patient known to have tracheomalacia, which may be responsible for his chronic bronchitic symptoms. 3. Currently, the patient seemed to have active thrush of the upper airways aggravating his respiratory symptoms. 4. Recent finding of hypoxemia. This is probably due to acute exacerbation of his chronic obstructive pulmonary disease. RECOMMENDATIONS: 1. I think he needs a short course of IV Solu-Medrol, followed by oral prednisone for a few weeks and should be weaned off slowly. 2. DuoNeb updrafts q.4-6 hours p.r.n. 3. Doxycycline 100 b.i.d. for 1 week, empirically. 4. Zyrtec 10 mg once a day p.r.n. for nasal congestion. 5. Most importantly, the patient should be treated for thrush with nystatin swishes. 6. Hold off any inhaled steroids at this time. 7. Oxygen supplementation as needed to keep O2 saturation above 90%. 8. I had a detailed discussion with the patient and his and explained about his current status, his diagnosis, and tentative plan. MD HERBERT Kerr/SERGEY / [id number]
--- NOTE | 2021-03-26 14:45 | P.PNIM_ITS ---
Subjective Subjective Date of Service: 03/26/21 Interval History: The patient was seen and evaluated this morning Laying in bed, in mild respiratory distress complaining of coughing and sh ortness of breath Denies any fever, chills or chest pain No reported other overnight events. Systemic review: No fever, chills or weakness No chest pain, palpitation dyspnea on exertion, SOB, coughing No abdominal pain, nausea or vomiting No urinary symptoms No any rash or wounds Physical Exam Vital Signs: Vital Signs: Last Vital Signs Temp 98.2 F 03/26/21 11:10 Pulse 86 03/26/21 11:10 Resp 20 03/26/21 11:10 BP 165/79 H 03/26/21 11:10 Pulse Ox 90 L 03/26/21 11:10 Oxygen Flow Rate 2 03/25/21 12:27 Body Mass Index 29.7 Const: Other: Constitutional : Alert, oriented, in mild respiratory distress Neck : Normal inspection, Supple Cardiovascular : RRR, S1 S2, no lower extremity edema Respiratory : decreasebilateral air entry, no crackles, bilateral coarse wheezes or rhonchi Gastrointestinal: soft, lax, Normal bowel sounds, Non tender Skin : Warm/Dry, No rash Neurological : Alert & oriented x3, No focal deficit Objective Data Current Medications Generic Name Dose Route Start Last Admin Trade Name Freq PRN Reason Stop Dose Admin Acetaminophen 650 mg 03/25/21 21:32 Acetaminophen 325 Mg Tablet PO Q6H PRN Pain, Mild (Pain Scale 1-3) Albuterol Sulfate 2.5 mg 03/25/21 21:32 Albuterol Sulfate (0.083%) 2.5 Mg/3 Ml Vial.Neb INHALE Q4H PRN Shortness Of Breath Albuterol/Ipratropium 3 ml 03/25/21 21:32 03/26/21 11:11 Albuterol/Iprat 2.5/0.5mg 3 Ml Ampul.Neb INHALE 3 ml RQ4H WHILE AWAKE DEVON Administration Amiodarone HCl 50 mg 03/27/21 09:00 Amiodarone Hcl 200 Mg Tablet PO [id number]@0900 DEVON Apixaban 5 mg 03/25/21 21:32 03/26/21 09:17 Apixaban 5 Mg Tablet PO 5 mg BID DEVON Administration Diltiazem HCl 240 mg 03/26/21 09:00 03/26/21 09:17 Diltiazem Hcl Cd 240 Mg Cap.Er.Deg PO 240 mg DAILY DEVON Administration Protocol Doxycycline Hyclate 100 mg 03/25/21 22:00 03/26/21 09:18 Doxycycline Hyclate 100 Mg Tablet PO 100 mg Q12H DEVON Administration Guaifenesin 600 mg 03/26/21 09:00 03/26/21 09:27 Guaifenesin La 600 Mg Tab.Er.12h PO 600 mg BID DEVON Administration Guaifenesin/Dextromethorphan 5 ml 03/26/21 00:54 03/26/21 07:36 Guaifenesin Dm 100/10/5 Ml 5 Ml Syrup PO 5 ml Q6H PRN Administration Cough Insulin Human Lispro 0 unit 03/25/21 21:32 03/26/21 11:29 Insulin Lispro 100 Unit/Ml 3 Ml Vial SUBCUT 8 unit QIDACHS [facility] Administration Protocol Ipratropium Shobonier 1 spray 03/25/21 21:32 03/25/21 23:14 Ipratropium Shobonier Tyrell 0.03 % 30 Ml [place] NOSTRIL-B Not Given BEDTIME [facility] Loratadine 10 mg 03/25/21 21:32 Loratadine 10 Mg Tablet PO DAILY PRN Allergy Symptoms Methylprednisolone Sodium Succinate 40 mg 03/25/21 22:00 03/26/21 13:15 Methylprednisolone Sod Succ 40 Mg/Ml Vial IVPUSH 40 mg Q8H DEVON Administration Metoprolol Succinate 25 mg 03/25/21 21:32 03/25/21 22:46 Metoprolol Succinate Er 25 Mg Tab.Er.24h PO 25 mg BEDTIME DEVON Administration Protocol Nitroglycerin 0.4 mg 03/25/21 21:32 Nitroglycerin 0.4 Mg Tab.Subl SUBLINGUAL Q5M PRN Chest Pain Nystatin 500,000 unit 03/25/21 21:32 03/26/21 13:15 Nystatin Oral Susp 500,000 Unit/5 Ml Oral.Susp PO 500,000 unit QID DEVON Administration Protocol Ondansetron HCl 4 mg 03/25/21 21:32 Ondansetron Hcl 4 Mg/2 Ml Vial IVPUSH Q8H PRN Nausea and Vomiting Pharmacy Consult 1 each 03/25/21 13:01 Consult Rx Perform Med Rec MISCELLANE ONCE PRN Consult order Valsartan 160 mg 03/26/21 09:00 03/26/21 09:17 Valsartan 160 Mg Tablet PO 160 mg DAILY [facility] Administration Protocol Vitamin D 100 mcg 03/26/21 09:00 03/26/21 09:17 Cholecalciferol (Vitamin D3) 25 Mcg Tablet PO 100 mcg DAILY [facility]ON Administration Labs CBC & Chem 7: 03/26/21 05:19 03/26/21 05:19 Labs: Laboratory Results - last 24 hr 03/25/21 03/25/21 03/26/21 13:20 22:26 05:19 WBC 12.7 H RBC 4.65 Hgb 14.6 Hct 42.9 MCV 92.3 MCH 31.4 MCHC 34.0 RDW 13.0 Plt Count 193 MPV 10.2 Absolute Nucleated RBC 0.000 Nucleated RBC % (auto) 0.0 Sodium Potassium Chloride Carbon Dioxide Anion Gap BUN Creatinine Estim Creat Clear Calc Estimated GFR POC Glucose 353 H* Random Glucose Calcium Respiratory Panel Mueller See Note Adenovirus (Rapid PCR) Not Detected B.pert (TEM-PCR) Not Detected B.parapertussis DNA PCR Not Detected C. pneumoniae DNA (PCR) Not Detected Coronavirus OC43 (PCR) Not Detected Coronavirus HKU1 (PCR) Not Detected Coronavirus 229E (PCR) Not Detected Coronavirus NL63 (PCR) Not Detected Human Metapneumovir PCR Not Detected Influenza A (RT-PCR) Not Detected Influenza B (RT-PCR) Not Detected M. pneumoniae (PCR) Not Detected Parainfluenza 1 (PCR) Not Detected Parainfluenza 2 (PCR) Not Detected Parainfluenza 3 (PCR) Not Detected Parainfluenza 4 (PCR) Not Detected RSV (PCR) Not Detected Entero/Rhino (PCR) Detected A SARS-CoV-2 RNA (RT-PCR) Not Detected 03/26/21 03/26/21 03/26/21 05:19 07:06 11:08 WBC RBC Hgb Hct MCV MCH MCHC RDW Plt Count MPV Absolute Nucleated RBC Nucleated RBC % (auto) Sodium 139 Potassium 3.9 Chloride 101 Carbon Dioxide 26 Anion Gap 16 BUN 29 H Creatinine 1.40 Estim Creat Clear Calc 57.3 Estimated GFR 49 POC Glucose 244 H 323 H Random Glucose 244 H Calcium 9.5 Respiratory Panel Mueller Adenovirus (Rapid PCR) B.pert (TEM-PCR) B.parapertussis DNA PCR C. pneumoniae DNA (PCR) Coronavirus OC43 (PCR) Coronavirus HKU1 (PCR) Coronavirus 229E (PCR) Coronavirus NL63 (PCR) Human Metapneumovir PCR Influenza A (RT-PCR) Influenza B (RT-PCR) M. pneumoniae (PCR) Parainfluenza 1 (PCR) Parainfluenza 2 (PCR) Parainfluenza 3 (PCR) Parainfluenza 4 (PCR) RSV (PCR) Entero/Rhino (PCR) SARS-CoV-2 RNA (RT-PCR) Quality Stroke Does the patient have a stroke diagnosis?: No VTE Prior VTE?: No VTE Risk Level:: Medical - moderate - high VTE Device Contraindication: Treatment Not Indicated VTE Drug Contraindication: N/A - Med Ordered Assessment and Plan (1) Acute respiratory failure with hypoxia: Status: Acute (2) Rhinovirus: Status: Acute (3) Acute bronchitis: Status: Acute Assessment and Plan: a 75 years old male with PMH of bronchitis, COPD, trachobronchomalacia , AFib, CAD among others who presented to the hospital as a referral from principal gifts officer for worsening shortness of breath and hypoxemia. acute hypoxic respiratory failure Secondary to acute bronchitis Rhino virus infection continue oxygen supplement, bronchodilator nebulizers and IV steroids continue doxycycline IV b.i.d. 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
[2021-03-26 15:56] LABS: Glucose, Whole Blood 268 mg/dL (60-115)
[2021-03-26] MEDS: Nitroglycerin 0.4 MG TAB.SUBL SUBLINGUAL (16:51)
[2021-03-26] MEDS: Ketorolac Tromethamine 15 MG/ML VIAL IVPUSH (17:07)
[2021-03-26] MEDS: ALPRAZolam 0.25 MG TABLET PO (17:13)
[2021-03-26] MEDS: Cyclobenzaprine HCl 5 MG TABLET PO (17:13)
[2021-03-26] MEDS: Omeprazole 40 MG CAPSULE.DR PO (18:22)
[2021-03-26] MEDS: QUEtiapine Fumarate 25 MG TABLET PO (19:25)
[2021-03-26 20:10] LABS: Glucose, Whole Blood 258 mg/dL (60-115)
[2021-03-26] MEDS: Metoprolol Succinate ER 25 MG TAB.ER.24H PO (21:07)
[2021-03-27] VITALS (15 sets, daily range): BP systolic 142–178; BP diastolic 70–86; PULSE 65–88; RESP 17–20; TEMP 35.9–36.8; O2SAT 90–97; BMI 29.5
[2021-03-27] MEDS: methylPREDNISolone Sod Succ 40 MG/ML VIAL IVPUSH ×2 (05:49→16:28)
[2021-03-27] MEDS: Omeprazole 40 MG CAPSULE.DR PO (05:49)
[2021-03-27 07:13] LABS: Glucose, Whole Blood 288 mg/dL (60-115)
[2021-03-27] MEDS: Albuterol/Iprat 2.5/0.5MG 3 ML AMPUL.NEB INHALE ×4 (07:16→20:47)
[2021-03-27] MEDS: Insulin Lispro 100 UNIT/ML 3 ML VIAL SUBCUT ×4 (07:37→20:10)
[2021-03-27] MEDS: cefTRIAXone sodium 1 GM in 0.9 % Sodium Chloride 50 ML IV (08:34)
[2021-03-27] MEDS: Nystatin Oral Susp 500,000 UNIT/5 ML ORAL.SUSP 500000 UNIT PO ×4 (08:43→20:13)
[2021-03-27] MEDS: Apixaban 5 MG TABLET PO ×2 (08:43→20:09)
[2021-03-27] MEDS: Valsartan 160 MG TABLET PO (08:43)
[2021-03-27] MEDS: Cholecalciferol (Vitamin D3) 25 MCG TABLET 100 MCG PO (08:43)
[2021-03-27] MEDS: Amiodarone HCL 200 MG TABLET 50 MG PO (08:44)
[2021-03-27] MEDS: dilTIAZem HCL CD 240 MG CAP.ER.DEG PO (08:44)
[2021-03-27] MEDS: guaiFENesin LA 600 MG TAB.ER.12H PO ×2 (08:45→20:08)
[2021-03-27] MEDS: Insulin Glargine,Hum.rec.anlog 100 UNIT/ML 10 ML VIAL 8 UNIT SUBCUT (08:45)
[2021-03-27 11:13] LABS: Glucose, Whole Blood 276 mg/dL (60-115)
--- NOTE | 2021-03-27 11:17 | PM.PNPUL ---
Subjective Subjective Date of Service: 03/27/21 Principal diagnosis: copd excerbation / Interval history: This 75 years old gentlsomewhat better, but during the night he had an episode of discomfort in the right upper quadrant of abdomen, with increased to shortness of breath. A repeat chest x-ray during the night showed a mild degree of atelectasis of left base but right side was clear. He has no fever chills or any chest pain. O2 down to 1 L/minute and he is maintaining O2 sat in low 90s. Patient has been started on Rocephin in addition to doxycycline, empirically. Objective Data Labs CBC & Chem 7: 03/26/21 05:19 03/26/21 05:19 Labs: Laboratory Results - last 24 hr 03/26/21 03/26/21 03/26/21 11:08 15:49 20:04 POC Glucose 323 H 268 H 258 H 03/27/21 03/27/21 07:11 11:09 POC Glucose 288 H 276 H Review of Systems Review of Systems Yes all other systems are reviewed and are negative Physical Exam Vital Signs: Vital Signs: Last Vital Signs Temp 96.6 F L 03/27/21 10:55 Pulse 76 03/27/21 11:00 Resp 20 03/27/21 10:55 BP 150/72 H 03/27/21 10:55 Pulse Ox 92 03/27/21 10:55 Oxygen Flow Rate 2 03/25/21 12:27 Body Mass Index 29.5 Const: General: comfortable (but slightly depressed.), no acute distress, alert and awake Orientation/consciousness: patient oriented x3 HENMT: Head: Yes normal to inspection General nose exam: No nasal polyps present and No nasal discharge present Face and sinus: Yes sinuses nontender Mouth: oropharynx normal Throat: Yes posterior oropharynx normal and Yes uvular edema (slightly red and swollen) Eyes: General: appearance normal, both eyes and all related structures Neck: Neck: Yes normal visual inspection, Yes no lymphadenopathy, Yes trachea midline and Yes no JVD Thyroid: Thyroid normal Chest: Chest palpation & inspection: normal inspection of the chest, normal palpation of entire chest wall and no tenderness Resp: Effort & Inspection: prolonged expiratory phase Auscultation: no crackles, no wheezes and diminished lung sounds (slightly distant ) Cardio: Palpation: normal PMI Rate: regular rate Rhythm: regular rhythm Heart sounds: no gallops and no murmurs GI: Palpation (GI): Soft to palpation, nontender, No hepatosplenomegaly present and no masses Auscultation: normal bowel sounds Back/Spine/Pelvis: Thoracic/Lumbar Spine: thoracic and lumbar spine normal to inspection Skin: General skin exam: no rashes or lesions noted Neuro: General: patient oriented x3, no focal motor deficits and Unable to assess gait (stays in recliner ) Cranial nerves: Yes CN's II-XII intact bilaterally Gait exam (Neuro): Unable to assess gait (stays in recliner ) Extrem: General: Yes normal to inspection, Yes no clubbing, cyanosis or edema and Yes no calf tenderness Psych: Speech and movement: Normal speech and movement present Procedures Date of Service Date of Service: 03/27/21 Assessment and Plan Assessment and plan (1) COPD (chronic obstructive pulmonary disease): Problem details: THIS GENTLEMAN IS A KNOWN CASE OF CHRONIC OBSTRUCTIVE PULMONARY DISEASE. CURRENTLY HAS MILD ACUTE EXACERBATION SECONDARY TO ACUTE VIRAL BRONCHITIS. POSSIBILITY OF MILD LEFT BASILAR ATELECTASIS/ PNEUMONIA. p: CONTINUE IV SOLU-MEDROL 40 MG B.I.D. FOR 1 MORE DAY THEN MAY START PREDNISONE 40 MG A DAY. DUONEB UPDRAFTS Q 6 HOURS WHILE AWAKE AND ALBUTEROL UPDRAFT Q 4-6 HOURS P.R.N. O2 1 L/MINUTE BUT SLOWLY WEAN OFF BEFORE HE IS DISCHARGED. IF HE CANNOT BE WEANED OFF THEN HE WOULD NEED O2 SUPPLY AT HOME. BEING TREATED WITH IV ROCEPHIN AND P.O. DOXYCYCLINE EMPIRICALLY . Status: Acute (2) Tracheobronchomalacia: Problem details: PER PREVIOUS BRONCHOSCOPY HE DOES HAVE SOME DEGREE OF TRACHEOMALACIA, NO ACTIVE INTERVENTION NEEDED FOR THIS AT THIS TIME Status: Acute (3) Acute bronchitis: Problem details: ACUTE VIRAL BRONCHITIS SECONDARY TO RHINOVIRUS, SHOULD RESOLVE BY ITSELF WITHIN A FEW DAYS Status: Acute (4) Acute respiratory failure with hypoxia: Problem details: NOTED TO HAVE LOW O2 SAT WHICH IS NOW IMPROVED AND IS O2 REQUIREMENT IS GETTING LESS. NOTED ABOVE GOAL IS TO WEAN HIM OFF THE OXYGEN BEFORE DISCHARGE, BUT IF HE O2 EVALUATION FOR HOME SHOWS THAT HE DESATURATES ON WALKING THEN HE SHOULD HAVE O2 SUPPLY AT HOME. Status: Acute (5) Atelectasis: Problem details: MINIMAL ATELECTASIS LEFT BASE, PROBABLY SECONDARY TO SOME MUCUS PLUGGING IN THE DISTAL AIRWAYS. TX :INCENTIVE SPIROMETRY, AND MUCOMYST VIA NEBULIZER B.I.D. FOR A FEW DAYS. Status: Acute (6) Thrush, oral: Problem details: KEEP HIM OFF ADVAIR, CONTINUE NYSTATIN SWISH IS T.I.D. Status: Inactive Time Spent With Patient Time: Total time spent is greater than 50% in coordination of care (as documented) at patient's floor/unit and/or counseling patient: Time with patient: 15 - 24 minutes Progress Note: Quality Stroke Does the patient have a stroke diagnosis?: No
--- NOTE | 2021-03-27 14:10 | HO.PM.IMPN ---
Subjective Subjective Date of Service: 03/27/21 Interval History: The patient was seen and evaluated this morning Laying in bed, feels much better today with decreased pain and shortness of breath Denies any fever, chills or chest pain No reported other overnight events. Systemic review: No fever, chills or weakness No chest pain, palpitation still complaining of dyspnea on exertion, SOB, coughing No abdominal pain, nausea or vomiting No urinary symptoms No any rash or wounds Physical Exam Vital Signs: Vital Signs: Last Vital Signs Temp 96.6 F L 03/27/21 10:55 Pulse 76 03/27/21 11:00 Resp 20 03/27/21 10:55 BP 150/72 H 03/27/21 10:55 Pulse Ox 92 03/27/21 10:55 Oxygen Flow Rate 2 03/25/21 12:27 Body Mass Index 29.5 Const: Other: Constitutional : Alert, oriented, in mild respiratory distress Neck : Normal inspection, Supple Cardiovascular : RRR, S1 S2, no lower extremity edema Respiratory : decrease bilateral air entry, left basilar fine crackles, improved bilateral fine wheezes Gastrointestinal: soft, lax, Normal bowel sounds, Non tender Skin : Warm/Dry, No rash Neurological : Alert & oriented x3, No focal deficit Objective Data Current Medications Generic Name Dose Route Start Last Admin Trade Name Freq PRN Reason Stop Dose Admin Acetaminophen 650 mg 03/25/21 21:32 Acetaminophen 325 Mg Tablet PO Q6H PRN Pain, Mild (Pain Scale 1-3) Acetylcysteine 400 mg 03/27/21 20:00 Acetylcysteine 10 % 400 Mg/4 Ml Vial INHALE RBID DEVON Albuterol Sulfate 2.5 mg 03/25/21 21:32 Albuterol Sulfate (0.083%) 2.5 Mg/3 Ml Vial.Neb INHALE Q4H PRN Shortness Of Breath Albuterol/Ipratropium 3 ml 03/25/21 21:32 03/27/21 10:58 Albuterol/Iprat 2.5/0.5mg 3 Ml Ampul.Neb INHALE 3 ml RQ4H WHILE AWAKE DEVON Administration Amiodarone HCl 50 mg 03/27/21 09:00 03/27/21 08:44 Amiodarone Hcl 200 Mg Tablet PO 50 mg MoWeFr@0900 DEVON Administration Apixaban 5 mg 03/25/21 21:32 03/27/21 08:43 Apixaban 5 Mg Tablet PO 5 mg BID DEVON Administration Diltiazem HCl 240 mg 03/26/21 09:00 03/27/21 08:44 Diltiazem Hcl Cd 240 Mg Cap.Er.Deg PO 240 mg DAILY DEVON Administration Protocol Doxycycline Hyclate 100 mg 03/25/21 22:00 03/27/21 08:50 Doxycycline Hyclate 100 Mg Tablet PO 100 mg Q12H DEVON Administration Guaifenesin 600 mg 03/26/21 09:00 03/27/21 08:45 Guaifenesin [place] 600 Mg Tab.Er.12h PO 600 mg BID [facility] Administration Guaifenesin/Dextromethorphan 5 ml 03/26/21 00:54 03/26/21 15:44 Guaifenesin Dm 100/10/5 Ml 5 Ml Syrup PO 5 ml Q6H PRN Administration Cough Ceftriaxone Sodium 1 gm/ 50 mls @ 100 mls/hr 03/27/21 08:30 03/27/21 09:04 Sodium Chloride IV Infused Q24H [facility] Infusion Insulin Human Lispro 0 unit 03/25/21 21:32 03/27/21 11:47 Insulin Lispro 100 Unit/Ml 3 Ml Vial SUBCUT 6 unit QIDACHS [facility] Administration Protocol Ipratropium [place] 1 spray 03/25/21 21:32 03/26/21 21:13 Ipratropium [place] 0.03 % 30 Ml [place] NOSTRIL-B Not Given BEDTIME [facility] Loratadine 10 mg 03/25/21 21:32 Loratadine 10 Mg Tablet PO DAILY PRN Allergy Symptoms Methylprednisolone Sodium Succinate 40 mg 03/27/21 17:00 Methylprednisolone Sod Succ 40 Mg/Ml Vial IVPUSH BID@0800,1700 [facility] Metoprolol Succinate 25 mg 03/25/21 21:32 03/26/21 21:07 Metoprolol Succinate Er 25 Mg Tab.Er.24h PO 25 mg BEDTIME [facility] Administration Protocol Nitroglycerin 0.4 mg 03/25/21 21:32 03/26/21 16:51 Nitroglycerin 0.4 Mg Tab.Subl SUBLINGUAL 0.4 mg Q5M PRN Administration Chest Pain Nystatin 500,000 unit 03/25/21 21:32 03/27/21 13:07 Nystatin Oral Susp 500,000 Unit/5 Ml Oral.Susp PO 500,000 unit QID DEVON Administration Protocol Omeprazole 40 mg 03/26/21 18:00 03/27/21 05:49 Omeprazole 40 Mg Capsule. PO 40 mg DAILY@0630 DEVON Administration Ondansetron HCl 4 mg 03/25/21 21:32 Ondansetron Hcl 4 Mg/2 Ml Vial IVPUSH Q8H PRN Nausea and Vomiting Pharmacy Consult 1 each 03/25/21 13:01 Consult Rx Perform Med Rec MISCELLANE ONCE PRN Consult order Quetiapine Fumarate 25 mg 03/26/21 17:39 03/26/21 19:25 Quetiapine Fumarate 25 Mg Tablet PO 25 mg BEDTIME PRN Administration anxiety/restlessness Valsartan 160 mg 03/26/21 09:00 03/27/21 08:43 Valsartan 160 Mg Tablet PO 160 mg DAILY [facility] Administration Protocol Vitamin D 100 mcg 03/26/21 09:00 03/27/21 08:43 Cholecalciferol (Vitamin D3) 25 Mcg Tablet PO 100 mcg DAILY DEVON Administration Labs CBC & Chem 7: 03/26/21 05:19 03/26/21 05:19 Labs: Laboratory Results - last 24 hr 03/26/21 03/26/21 03/27/21 15:49 20:04 07:11 POC Glucose 268 H 258 H 288 H 03/27/21 11:09 POC Glucose 276 H Imaging Chest x-ray: Radiologist's impression: Impressions Chest X-Ray 03/26/21 17:47 IMPRESSION: Atelectasis at the left lung base. 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 acute hypoxic respiratory failure Secondary to acute bronchitis Rhino virus infection continue oxygen supplement, bronchodilator nebulizers and IV steroids continue doxycycline IV b.i.d. 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
[2021-03-27 16:14] LABS: Glucose, Whole Blood 321 mg/dL (60-115)
[2021-03-27] MEDS: guaiFENesin DM 100/10/5 ML 5 ML SYRUP PO ×2 (16:28→21:52)
[2021-03-27 20:07] LABS: Glucose, Whole Blood 304 mg/dL (60-115)
[2021-03-27] MEDS: Metoprolol Succinate ER 25 MG TAB.ER.24H PO (20:08)
[2021-03-27] MEDS: Acetylcysteine 10 % 400 MG/4 ML VIAL INHALE (20:47)
[2021-03-27] MEDS: Ipratropium Bromide Nas 0.03 % 30 ML SPRAY 1 SPRAY NOSTRIL-B (21:53)
[2021-03-28 03:33] VITALS: BP 132/84; PULSE 65; RESP 18; TEMP 36.4; O2SAT 94
[2021-03-28 05:07] VITALS: BMI 29.8
[2021-03-28] MEDS: Omeprazole 40 MG CAPSULE.DR PO (05:31)
[2021-03-28] MEDS: guaiFENesin DM 100/10/5 ML 5 ML SYRUP PO (06:06)
[2021-03-28 06:55] VITALS: BP 160/85; PULSE 62; RESP 18; TEMP 36.1; O2SAT 96
[2021-03-28 07:13] LABS: Glucose, Whole Blood 278 mg/dL (60-115)
[2021-03-28] MEDS: Albuterol/Iprat 2.5/0.5MG 3 ML AMPUL.NEB INHALE (07:21)
[2021-03-28] MEDS: Acetylcysteine 10 % 400 MG/4 ML VIAL INHALE (07:21)
[2021-03-28 07:23] VITALS: PULSE 76; O2SAT 93
[2021-03-28] MEDS: methylPREDNISolone Sod Succ 40 MG/ML VIAL IVPUSH (07:39)
[2021-03-28 07:40] VITALS: BP 160/85; PULSE 76
[2021-03-28] MEDS: Nystatin Oral Susp 500,000 UNIT/5 ML ORAL.SUSP 500000 UNIT PO (07:40)
[2021-03-28] MEDS: guaiFENesin LA 600 MG TAB.ER.12H PO (07:40)
[2021-03-28] MEDS: dilTIAZem HCL CD 240 MG CAP.ER.DEG PO (07:40)
[2021-03-28] MEDS: Valsartan 160 MG TABLET PO (07:40)
[2021-03-28] MEDS: Apixaban 5 MG TABLET PO (07:40)
[2021-03-28] MEDS: Cholecalciferol (Vitamin D3) 25 MCG TABLET 100 MCG PO (07:42)
[2021-03-28] MEDS: cefTRIAXone sodium 1 GM in 0.9 % Sodium Chloride 50 ML IV (07:42)
[2021-03-28] MEDS: Insulin Lispro 100 UNIT/ML 3 ML VIAL SUBCUT (07:42)
[2021-03-28 07:49] LABS: Anion Gap 15 (12-20); Blood Urea Nitrogen 29 mg/dL (9-16); Calcium 9.1 mg/dL (8.4-10.2); Carbon Dioxide 24 mmol/L (22-29); Chloride 102 mmol/L (96-108); Creatinine Clr Calc Pharmacy 61.7; Estimated Glomerular Filt Rate 54; Glucose Random 309 mg/dL (60-115); Potassium 4.2 mmol/L (3.3-5.1); Sodium 137 mmol/L (135-145)
--- NOTE | 2021-03-28 10:23 | PM.PNPUL ---
Subjective Subjective Date of Service: 03/28/21 Principal diagnosis: copd excerbation / Interval history: THIS 75 YEARS OLD GENTLEMAN IS FEELING MUCH BETTER TODAY. COUGH IS MINIMAL AND ALSO DOES NOT HAVE MUCH SORENESS IN THE THROAT. BREATHING HAS BEEN STABLE AND HE IS ABLE TO COME OFF OXYGEN. HE HAS NO NAUSEA VOMITING OR ABDOMINAL DISCOMFORT. STILL FEELING WEAK IN GENERAL BUT IS BETTER THAN BEFORE. Objective Data Labs CBC & Chem 7: 03/26/21 05:19 03/28/21 07:10 Labs: Laboratory Results - last 24 hr 03/27/21 03/27/21 03/27/21 11:09 16:07 20:00 Sodium Potassium Chloride Carbon Dioxide Anion Gap BUN Creatinine Estim Creat Clear Calc Estimated GFR POC Glucose 276 H 321 H 304 H Random Glucose Calcium 03/28/21 03/28/21 06:55 07:10 Sodium 137 Potassium 4.2 Chloride 102 Carbon Dioxide 24 Anion Gap 15 BUN 29 H Creatinine 1.30 Estim Creat Clear Calc 61.7 Estimated GFR 54 POC Glucose 278 H Random Glucose 309 H Calcium 9.1 Review of Systems Review of Systems Yes all other systems are reviewed and are negative Physical Exam Vital Signs: Vital Signs: Last Vital Signs Temp 97 F 03/28/21 06:55 Pulse 76 03/28/21 07:40 Resp 18 03/28/21 06:55 BP 160/85 H 03/28/21 07:40 Pulse Ox 96 03/28/21 06:55 Oxygen Flow Rate 2 03/25/21 12:27 Body Mass Index 29.8 Const: General: comfortable, no acute distress, alert and awake Orientation/consciousness: patient oriented x3 HENMT: Head: Yes normal to inspection General nose exam: No nasal polyps present and No nasal discharge present Face and sinus: Yes sinuses nontender Mouth: oropharynx normal ( NO EVIDENT THRUSH NOTED AT THIS TIME.) Throat: Yes posterior oropharynx normal Eyes: General: appearance normal, both eyes and all related structures Neck: Neck: Yes normal visual inspection, Yes no lymphadenopathy, Yes trachea midline and Yes no JVD Thyroid: Thyroid normal Chest: Chest palpation & inspection: normal inspection of the chest, normal palpation of entire chest wall and no tenderness Resp: Auscultation: no crackles, no wheezes and diminished lung sounds (DISTANT , AND SLIGHTLY MORE DIMINISHED OVER LT BASE ) Cardio: Palpation: normal PMI Rate: regular rate Rhythm: regular rhythm Heart sounds: no gallops and no murmurs GI: Palpation (GI): Soft to palpation, nontender, No hepatosplenomegaly present and no masses Auscultation: normal bowel sounds Back/Spine/Pelvis: Thoracic/Lumbar Spine: thoracic and lumbar spine normal to inspection Skin: General skin exam: no rashes or lesions noted Neuro: General: patient oriented x3 and no focal motor deficits Cranial nerves: Yes CN's II-XII intact bilaterally Extrem: General: Yes normal to inspection, Yes no clubbing, cyanosis or edema and Yes no calf tenderness Psych: Speech and movement: Normal speech and movement present Procedures Date of Service Date of Service: 03/28/21 Assessment and Plan Assessment and plan (1) Acute bronchitis: Problem details: ACUTE VIRAL BRONCHITIS SECONDARY TO RHINOVIRUS, IMPROVED . Status: Acute (2) Acute respiratory failure with hypoxia: Problem details: NOTED TO HAVE LOW O2 SAT WHICH IS NOW IMPROVED AND IS O2 REQUIREMENT IS GETTING LESS. RESOLVED , DOES NOT NEED O2 . Status: Acute (3) COPD (chronic obstructive pulmonary disease): Problem details: THIS GENTLEMAN IS A KNOWN CASE OF CHRONIC OBSTRUCTIVE PULMONARY DISEASE. CURRENTLY HAS MILD ACUTE EXACERBATION SECONDARY TO ACUTE VIRAL BRONCHITIS. POSSIBILITY OF MILD LEFT BASILAR ATELECTASIS/ PNEUMONIA. CLINICALLY IMPROVED , p: DC .IV SOLU-MEDROL . PREDNIOSNE TAPER OVER THE NEXT 2-3 WEEKS .. MAY REPLACE DUO NEB UDs BY COMBIVENT RESPIMAT [place] IN[place] QID. NO ADVAIR . Status: Acute (4) Tracheobronchomalacia: Problem details: PER PREVIOUS BRONCHOSCOPY HE DOES HAVE SOME DEGREE OF TRACHEOMALACIA, NO ACTIVE INTERVENTION NEEDED FOR THIS AT THIS TIME Status: Acute (5) Atelectasis: Problem details: MINIMAL ATELECTASIS LEFT BASE, PROBABLY SECONDARY TO SOME MUCUS PLUGGING IN THE DISTAL AIRWAYS. TX :INCENTIVE SPIROMETRY, AT HOME MAY USE MUCINEX 600 MG BID Status: Acute (6) Thrush, oral: Problem details: KEEP HIM OFF ADVAIR, CONTINUE NYSTATIN SWISH IS T.I.D. X ONE MORE WEEK Status: Acute Time Spent With Patient Time: Total time spent is greater than 50% in coordination of care (as documented) at patient's floor/unit and/or counseling patient: Time with patient: 15 - 24 minutes Progress Note: Quality Stroke Does the patient have a stroke diagnosis?: No
[2021-03-28 10:49] VITALS: BP 149/72; PULSE 75; RESP 20; TEMP 35.5; O2SAT 96
--- NOTE | 2021-03-28 11:00 | P.DS_ITS ---
DS: Providers Provider Date of Service: 03/28/21 Date of admission: 03/25/21 16:33 Primary care physician: Monique Wilson MD Consults: 03/25/21 21:32 Consult to Pulmonology Routine Consulting Provider: Ferdinand Elkins Reason for consultation: acute bronchitis, hypoxemia for your kind eval. DS: Diagnosis Discharge Diagnosis (1) Acute bronchitis: Status: Acute (2) Acute respiratory failure with hypoxia: Status: Acute (3) COPD (chronic obstructive pulmonary disease): Status: Acute (4) Tracheobronchomalacia: Status: Acute (5) Atelectasis: Status: Acute (6) Thrush, oral: Status: Acute DS: Medications Discharge Medications Home Medications: Home Medications Medication Instructions Recorded Confirmed diltiazem HCl 240 mg 240 mg PO DAILY 09/08/20 03/25/21 capsule,extended release 24 hr metoprolol succinate 25 mg 25 mg PO BEDTIME 09/08/20 03/25/21 tablet,extended release 24 hr albuterol sulfate 2.5 mg INHALATION Q4-6H PRN 01/07/21 03/25/21 apixaban 5 mg tablet 5 mg PO BID 01/07/21 03/25/21 cetirizine 10 mg tablet 10 mg PO DAILY PRN 01/07/21 03/25/21 rosuvastatin 20 mg tablet 20 mg PO BEDTIME 01/07/21 03/25/21 nitroglycerin 0.4 mg sublingual 0.4 mg SUBLINGUAL Q5M PRN 03/17/21 03/25/21 tablet amiodarone 50 mg PO MOWEFR 03/25/21 03/25/21 cholecalciferol (vitamin D3) 100 mcg PO DAILY 03/25/21 03/25/21 [Vitamin D3] ipratropium bromide 1 spray INTRANASAL BEDTIME 03/25/21 03/25/21 metformin 2 tab PO BIDWM 03/25/21 03/25/21 prednisone 60 mg PO DAILY 03/25/21 03/25/21 valsartan-hydrochlorothiazide 1 tab PO DAILY 03/25/21 03/25/21 Previous Rx's Medication Instructions Recorded tiotropium bromide 2.5 2 inh INHALATION DAILY #3 ea 12/29/20 mcg/actuation mist for inhalation fluticasone 500 mcg-salmeterol 50 1 inh INHALATION BID #60 ea 02/03/21 mcg/dose blistr powdr for inhalation doxycycline hyclate 100 mg capsule 100 mg PO BID 10 Days #20 cap 03/17/21 nystatin 500,000 unit tablet 500,000 unit PO TID 10 Days #30 tab 03/24/21 cefuroxime axetil 500 mg PO BID #10 tab 03/28/21 doxycycline hyclate 100 mg PO Q12H #10 tab 03/28/21 guaifenesin [Mucinex] 600 mg PO BID 7 Days #14 tab 03/28/21 nystatin 500,000 unit PO QID 7 Days #140 ml 03/28/21 omeprazole 40 mg PO DAILY@0630 14 Days #14 cap 03/28/21 prednisone See Taper PO DAILY #30 tab 03/28/21 DS: Summary Hospital Course Hospital Course: Admission note HPI a 75 years old male with PMH of bronchitis, COPD, trachobronchomalacia , AFib, CAD among others who presented to the hospital as a referral from senior statistician for worsening shortness of breath and hypoxemia. The patient has been complaining of 3 weeks of worsening shortness of breath, coughing and chest congestion. He was treated with p.o. steroids and inhaler by his senior statistician but never recover back to baseline. Was visiting the office again today when he was found to be hypoxic at 86% on room air with significant dyspnea on exertion. He is complaining also of a thrush in his mouth mainly from using steroids for the last couple of weeks. Admitted for further evaluation and treatment. hospital course The patient was admitted for treatment of hypoxia as a result of rhino virus infection and acute bronchitis picture. He was treated primarily with IV steroids, bronchodilator nebulizers and doxycycline for anti-inflammatory effect. The patient developed right-sided chest pain in the 2nd day of admissi on and a repeat chest x-ray showed atelectasis. Mucomyst nebulizer and chest physical therapy were done with addition of flutter valve and incentive spirometry along with ceftriaxone help the patient to recover really well as he was weaned off the oxygen became able to ambulate freely on the room air with no reported shortness of breath or dyspnea. His cough improved significantly as well. He was evaluated by pulmonology team who recommended tapering dose of steroids at time of discharge and to follow-up as outpatient. To finish 5 more days of antibiotics for total of 7 days Tapering dose of steroid To use nystatin for oral thrush Time Spent with Patient Time attestation: Total time spent providing and/or coordinating discharge services: Discharge coordination time: Greater than 30 minutes Quality: Stroke Does the patient have a stroke diagnosis?: No Physical Exam Vital Signs: Vital Signs: Last Vital Signs Temp 96 F L 03/28/21 10:49 Pulse 75 03/28/21 10:49 Resp 20 03/28/21 10:49 BP 149/72 H 03/28/21 10:49 Pulse Ox 96 03/28/21 10:49 Oxygen Flow Rate 2 03/25/21 12:27 Body Mass Index 29.8 Const: Other: Constitutional : Alert, oriented, not in distress Neck : Normal inspection, Supple Cardiovascular : RRR, S1 S2, no lower extremity edema Respiratory : good bilateral air entry, minimal left basilar fine crackles, no more wheezes Gastrointestinal: soft, lax, Normal bowel sounds, Non tender Skin : Warm/Dry, No rash Neurological : Alert & oriented x3, No focal deficit DS: Data Data Completed and Pending Labs on day of discharge: Laboratory Results - last 24 hr 03/27/21 03/27/21 03/27/21 11:09 16:07 20:00 Sodium Potassium Chloride Carbon Dioxide Anion Gap BUN Creatinine Estim Creat Clear Calc Estimated GFR POC Glucose 276 H 321 H 304 H Random Glucose Calcium 03/28/21 03/28/21 06:55 07:10 Sodium 137 Potassium 4.2 Chloride 102 Carbon Dioxide 24 Anion Gap 15 BUN 29 H Creatinine 1.30 Estim Creat Clear Calc 61.7 Estimated GFR 54 POC Glucose 278 H Random Glucose 309 H Calcium 9.1 Imaging Chest x-ray: Radiologist's impression: ITS Impressions Chest X-Ray 03/25/21 12:44 IMPRESSION: Unremarkable examination. Chest X-Ray 03/26/21 17:47 IMPRESSION: Atelectasis at the left lung base. Discharge Plan Discharge Patient Disposition: Home, Self-Care Discharge Diagnosis: acute bronchitis Rhino virus infection Atelectasis Referrals: Sourav Wilson MD [Primary Care Provider] - 1 Week Discharge Medications: New nystatin 100,000 unit/mL Suspension 500,000 unit PO QID 7 Days Qty: 140 RF: 0 omeprazole 40 mg Capsule,Delayed Release(Dr/Ec) 40 mg PO DAILY@0630 14 Days Qty: 14 RF: 0 guaifenesin [Mucinex] 600 mg Tablet Extended Release 12hr 600 mg PO BID 7 Days Qty: 14 RF: 0 cefuroxime axetil 500 mg tablet 500 mg PO BID Qty: 10 RF: 0 prednisone 10 mg tablet See Taper mg PO DAILY Qty: 30 RF: 0 doxycycline hyclate 100 mg Tablet 100 mg PO Q12H Qty: 10 RF: 0 Continued tiotropium bromide 2.5 mcg/actuation mist 2 inh inhalation DAILY Qty: 3 RF: 3 fluticasone propion-salmeterol [Advair Diskus] 500-50 mcg/dose blister with device 1 inh inhalation BID Qty: 60 RF: 3 nystatin 500,000 unit tablet 500,000 unit PO TID 10 Days Qty: 30 RF: 1 metformin 500 mg tablet 2 tab PO BIDWM RF: 0 ipratropium bromide 21 mcg (0.03 %) spray,non-aerosol 1 spray intranasal BEDTIME RF: 0 valsartan-hydrochlorothiazide 160-25 mg tablet 1 tab PO DAILY RF: 0 prednisone 20 mg tablet 60 mg PO DAILY RF: 0 amiodarone 100 mg Tablet 50 mg PO MOWEFR RF: 0 cholecalciferol (vitamin D3) [Vitamin D3] 50 mcg (2,000 unit) Tablet 100 mcg PO DAILY RF: 0 rosuvastatin [Crestor] 20 mg tablet 20 mg PO BEDTIME RF: 0 Eliquis 5 mg tablet 5 mg PO BID RF: 0 cetirizine [Zyrtec] 10 mg tablet 10 mg PO DAILY PRN (Reason: Allergy Symptoms) RF: 0 albuterol sulfate 2.5 mg /3 mL (0.083 %) solution for nebulization 2.5 mg inhalation Q4-6H PRN (Reason: Shortness Of Breath) RF: 0 nitroglycerin 0.4 mg tablet, sublingual 0.4 mg sublingual Q5M PRN (Reason: Chest Pain) RF: 0 doxycycline hyclate 100 mg capsule 100 mg PO BID 10 Days Qty: 20 RF: 0 metoprolol succinate 25 mg tablet extended release 24 hr 25 mg PO BEDTIME RF: 0 diltiazem HCl 240 mg capsule,extended release 24hr 240 mg PO DAILY RF: 0 Discharge Orders: Discharge Order (Routine); Ordered 03/28/21 Ordered By: Lucinda Darling Diet: advance to usual diet Activity on Discharge: As tolerated Stand Alone Forms: Patient Portal Discharge page Care Plan Goals: Read below Health Concerns: Read below Plan of Treatment: you were admitted to the hospital for evaluation of difficulty breathing. Found to coronavirus infection with picture of acute bronchitis. Treated with IV steroids, nebulizers and antibiotic as a repeat chest x-ray showed an area of atelectasis in your lung. Chest physical therapy helped improving her symptoms and you were able to ambulate on room. Assessment: Continue doxycycline and Ceftin for 5 more days To do tapering dose of prednisone To use nystatin for the mouth thrush to follow-up with your lung doctor as scheduled
--- NOTE | 2021-03-28 11:19 | MHC.CM.PN ---
PT CLEARED TO DC HOME TODAY WITH NO SERVICES. TO TRANSPORT
== END 2021-03-28 11:33 | disposition home or self-care (01) | DRG 190 ==
LOC: HO.ED 15:45 → HO.EDOVER 16:46 → HO.IMC 17:26
PROVIDERS: Physician Assistant Medical; Admitting Provider Student in an Organized Health Care Education/Training Program; Emergency Provider Emergency Medicine; PCP Internal Medicine; Visit Provider Student in an Organized Health Care Education/Training Program
DX: J44.0 Chronic obstructive pulmonary disease with (acute) lower respiratory infection (principal); J96.01 Acute respiratory failure with hypoxia; B37.81 Candidal esophagitis; J98.11 Atelectasis; J20.6 Acute bronchitis due to rhinovirus; J44.1 Chronic obstructive pulmonary disease with (acute) exacerbation; J39.8 Other specified diseases of upper respiratory tract; I48.91 Unspecified atrial fibrillation; E11.65 Type 2 diabetes mellitus with hyperglycemia; Z20.822 Contact with and (suspected) exposure to COVID-19; Z79.01 Long term (current) use of anticoagulants; Z79.51 Long term (current) use of inhaled steroids; Z79.899 Other long term (current) drug therapy
CPT/HCPCS: 36415; 71045; 80048; 80053; 82947; 83735; 83880; 85025; 85027; 85610; 87633; 93005; 94640; 96372; 99212; 99285; J0696; J1885; J2920; J3475

== ENCOUNTER → 2021-04-10 10:16 | Outpatient (BNVA) | payer MEDICARE, SELFPAY | PROVIDERS: PCP Internal Medicine; Visit Provider Hospitalist | DX: G47.33 Obstructive sleep apnea (adult) (pediatric) (principal); J44.0 Chronic obstructive pulmonary disease with (acute) lower respiratory infection; J98.11 Atelectasis; J39.8 Other specified diseases of upper respiratory tract | CPT/HCPCS: 99212 ==

== ENCOUNTER → 2021-06-11 10:12 | Outpatient (BNVA) | payer MEDICARE, SELFPAY | PROVIDERS: PCP Internal Medicine; Visit Provider Hospitalist | DX: G47.33 Obstructive sleep apnea (adult) (pediatric) (principal); J98.11 Atelectasis; J39.8 Other specified diseases of upper respiratory tract; J44.0 Chronic obstructive pulmonary disease with (acute) lower respiratory infection | CPT/HCPCS: 99212 ==

== ENCOUNTER → 2021-10-12 10:53 | Outpatient (BNVA) | payer MEDICARE, SELFPAY | PROVIDERS: PCP Internal Medicine; Visit Provider Hospitalist | DX: J44.9 Chronic obstructive pulmonary disease, unspecified (principal) | CPT/HCPCS: Q3014 ==

== ENCOUNTER → 2022-04-12 10:39 | Outpatient (BNVA) | payer MEDICARE, SELFPAY | PROVIDERS: PCP Internal Medicine; Visit Provider Hospitalist | DX: J44.0 Chronic obstructive pulmonary disease with (acute) lower respiratory infection (principal); J98.11 Atelectasis; J39.8 Other specified diseases of upper respiratory tract; G47.33 Obstructive sleep apnea (adult) (pediatric); Z79.899 Other long term (current) drug therapy | CPT/HCPCS: 99212 ==

== ENCOUNTER → 2022-09-28 14:03 | Outpatient (BNVA) | payer MEDICARE, SELFPAY | PROVIDERS: PCP Internal Medicine; Visit Provider Hospitalist | DX: Z13.89 Encounter for screening for other disorder (principal) | CPT/HCPCS: Q3014 ==

== ENCOUNTER → 2022-10-21 10:40 | Outpatient (BNVA) | payer MEDICARE, SELFPAY | PROVIDERS: PCP Internal Medicine; Visit Provider Hospitalist | DX: Z13.89 Encounter for screening for other disorder (principal) | CPT/HCPCS: 99212 ==

== ENCOUNTER 2022-10-21 11:48 | Emergency (ER) | payer MEDICARE, SELFPAY ==
--- NOTE | ~2022-10-21 | XR_ITS ---
EXAMINATION: XR CHEST CLINICAL INFORMATION: Weakness. Hypotension. COMPARISON: 03/26/2021 TECHNIQUE: 2 views of the chest were obtained. FINDINGS: Cardiac leads overlie the chest. Elevated left hemidiaphragm, chronic. No consolidation, edema, or effusion. No pneumothorax. The cardiomediastinal silhouette is within normal limits. XR/XR chest 2V IMPRESSION: Chronic elevation of the left hemidiaphragm. No acute pulmonary finding.
--- NOTE | 2022-10-21 11:53 | ED_ITS ---
HPI - Weakness General Chief complaint: General Medical <Lillian Adler NP - Last Filed: 10/21/22 12:02> Stated complaint: Hypotensive sent by DR. Elkins <Lillian Adler NP - Last Filed: 10/21/22 12:02> Time Seen by Provider: 10/21/22 12:03 <Lillian Adler NP - Last Filed: 10/21/22 12:02> Related Data Home medications: Home Medications Medication Instructions Recorded Confirmed apixaban 5 mg tablet (Eliquis) 5 mg PO BID 01/07/21 10/21/22 rosuvastatin 20 mg tablet (Crestor) 20 mg PO BEDTIME 01/07/21 10/21/22 nitroglycerin 0.4 mg sublingual 0.4 mg sublingual Q5M PRN Chest 03/17/21 10/21/22 tablet Pain cholecalciferol (vitamin D3) 50 100 mcg PO DAILY 03/25/21 10/21/22 mcg (2,000 unit) tablet (Vitamin D3) metformin 500 mg tablet 2 tab PO BIDWM 03/25/21 10/21/22 valsartan 160 1 tab PO DAILY 03/25/21 10/21/22 mg-hydrochlorothiazide 25 mg tablet diltiazem HCl 240 mg 240 mg PO DAILY 06/11/21 10/21/22 capsule,extended release 24 hr tamsulosin 0.4 mg capsule 0.4 mg PO DAILY 10/12/21 10/21/22 metoprolol succinate 25 mg 25 mg PO BID 09/28/22 10/21/22 tablet,extended release 24 hr Previous Rx's Medication Instructions Recorded ipratropium bromide 0.02 % 2.5 ml inhalation QID 90 days 06/17/21 solution for inhalation #1,080 mL ipratropium bromide 21 mcg (0.03 2 spray intranasal BID-TID PRN for 04/29/22 %) nasal spray allergies #30 mL tiotropium bromide 2.5 2 inh inhalation DAILY 90 days #3 08/16/22 mcg/actuation mist for inhalation ea <Lillian Adler NP - Last Filed: 10/21/22 12:02> Allergies/Adverse reactions: Allergies Allergy/AdvReac Type Severity Reaction Status Date / Time No Known Allergies Allergy Verified 10/21/22 11:00 <Lillian Adler NP - Last Filed: 10/21/22 12:02> [facility] Past Medical History Medical History: Medical History (Updated 10/21/22 @ 17:44 by Sheryl Awad MD) Atelectasis Bronchopneumonia Chronic bronchitis Chronic rhinitis COPD (chronic obstructive pulmonary disease) Limb swelling AIRAM (obstructive sleep apnea) Thrush, oral Tracheobronchomalacia <Lillian Adler NP - Last Filed: 10/21/22 12:02> Family History Family History: Family History (Updated 03/25/21 @ 23:03 by Ferdinand Elkins MD) Other HTN (hypertension) <Lillian Adler NP - Last Filed: 10/21/22 12:02> Social History Social History: Social History Household Members: Spouse Housing: House Do you presently have visiting nurse or other home services: No Alcohol intake: never Patient Tobacco Use Status: Never used Tobacco Smoked in Last 30 Days: No Use of substances other than those prescribed or required for medical reasons: No Advance Directives: Yes Advance Directives on File: Yes Advance Directives Date on File: 03/25/21 Current occupational status: retired <Lillian Adler NP - Last Filed: 10/21/22 12:02> Physical Exam Vital Signs: Vital Signs: Last Vital Signs Temp 97.7 F 10/21/22 11:55 Pulse 65 10/21/22 15:22 Resp 20 10/21/22 15:22 BP 127/50 L 10/21/22 15:22 Pulse Ox 98 10/21/22 15:22 O2 Del Method 10/21/22 15:22 BMI result Body Mass Index 30.0 <Lillian Adler NP - Last Filed: 10/21/22 12:02> Vital Signs: Last Vital Signs Temp 97.7 F 10/21/22 11:55 Pulse 65 10/21/22 15:22 Resp 20 10/21/22 15:22 BP 127/50 L 10/21/22 15:22 Pulse Ox 98 10/21/22 15:22 O2 Del Method 10/21/22 15:22 BMI result Body Mass Index 30.0 VITAL SIGNS: Reviewed. GENERAL: Well developed, well nourished, in no acute distress. HEAD: Normocephalic/atraumatic EYES: PERRLA, EOMI EARS: Ext canals without abnormality OROPHARYNX: no oral lesions noted, posterior pharynx clear LUNGS: Normal breath sounds. No adventitious sounds or accessory muscle use. SpO2<97> CARDIOVASCULAR: Regular rate and rhythm without noted murmurs ABDOMEN: Soft, non-tender, non-distended with bowel sounds. MUSCULOSKELETAL: No tenderness, deformities, or effusions noted on gross inspe ction. EXTREMITIES: No cyanosis, clubbing or edema. SKIN: Inspection of the skin reveals no rashes NEUROLOGIC: Alert and oriented x 4. Strength and sensation to light touch were grossly intact x 4. BEDSIDE ULTRASOUND Lungs: Good lung sliding, no B lines appreciated, small pleural effusion on the right Cardiac: NO PERICARDIAL EFFUSION, GOOD SQUEEZE, EF GOOD, RV<LV <Sheryl Awad MD - Last Filed: 10/21/22 17:44> Course Course Course Narrative: This is rapid medical exam. Deferred additional HPI, ROS, PE to primary provider. 77yo male with history of COPD, AIRAM, BPH (recently started bladder catheterizing at home), recent diagnosis of COVID, afib on Cardizem and Eliquis, on two blood pressure medications who presents from pulmonary office w ith concern for hypotension. Patient with low blood pressure 77 systolic in pulmonary office. Patient reports feeling weak/dizzy. BP 88 systolic in triage. Patient to go direct to room. Ordered labs, EKG, CXR, UA, covid screen. <Lillian Adler NP - Last Filed: 10/21/22 12:02> Medications Administered Discontinued Medications Generic Name Dose Route Start Last Admin Trade Name Freq PRN Reason Stop Dose Admin Sodium Chloride 500 mls @ 999 mls/hr 10/21/22 13:00 10/21/22 15:09 Ns IV 10/21/22 13:30 Infused .Q31M DEVON Infusion <Lillian Adler NP - Last Filed: 10/21/22 12:02> Medications Administered Discontinued Medications Generic Name Dose Route Start Last Admin Trade Name Freq PRN Reason Stop Dose Admin Sodium Chloride 500 mls @ 999 mls/hr 10/21/22 13:00 10/21/22 15:09 Ns IV 10/21/22 13:30 Infused .Q31M DEVON Infusion <Sheryl Awad MD - Last Filed: 10/21/22 17:44> Medical Decision Making Medical Decision Making [facility] Narrative: 77-year-old male without evidence of infection or anemia and I suspect patient may have taken his blood pressure medication with a low blood pressure as there is no evidence of pneumothorax, pneumonia, fluid overload, pericardial effusion, EF appears to be reasonable. Repeat blood pressure is 105/84. 77-year-old male who arrived here as a referral and has had no further low blood pressures. On review of all investigations my interpretation is that patient has with mild but improving KRYS after receiving IV fluids. In addition the noted lactic acid elevation is likely a combination of inhaler use and metformin as there is no clinical/objective findings to suggest acute infection. Patient is otherwise feeling much better and we discussed extensively regarding checking his blood pressure prior to taking his valsartan/hydrochlorothiazide combination hypertensive medications and the limit was SBP-120. He was also strongly encouraged to follow-up with his primary care provider for re-evaluation. <Sheryl Awad MD - Last Filed: 10/21/22 17:44> Differential Diagnosis Differential Diagnoses: The differential diagnosis associated with the presentation includes <Sheryl Awad MD - Last Filed: 10/21/22 17:44> Please see discussion above <Sheryl Awad MD - Last Filed: 10/21/22 17:44> Lab Data [facility] Lab Attestation statement: I reviewed the patient's lab results. <Sheryl Awad MD - Last Filed: 10/21/22 17:44> Please see the discussion above <Sheryl Awad MD - Last Filed: 10/21/22 17:44> Result Diagrams: 10/21/22 12:19 10/21/22 12:19 <Lillian Adler NP - Last Filed: 10/21/22 12:02> Labs: Lab Results 10/21/22 10/21/22 10/21/22 Range/Units 12:19 12:19 12:19 WBC 6.7 (4.8-10.8) X10*3/uL RBC 3.84 L (4.60-5.80) X10*6/uL Hgb 12.0 L (14.0-18.0) g/dl Hct 34.9 L (42.0-52.0) % MCV 90.9 (80.0-98.0) fL MCH 31.3 (27.0-33.0) pg MCHC 34.4 (31.0-36.0) g/dl RDW 12.2 (11.0-16.0) % Plt Count 148 L (160-400) X10*3/uL MPV 9.3 L (9.4-12.4) fL Immature Gran % (Auto) 0.3 (0.0-0.4) % Neut % (Auto) 71.4 (45-73) % Lymph % (Auto) 17.3 L (20-40) % Forrest % (Auto) 8.5 (2-11) % Eos % (Auto) 2.2 (0-4) % Baso % (Auto) 0.3 (0-2) % Lymph # (Auto) 1.2 (1.2-4.9) X10*3/uL Forrest # (Auto) 0.6 (0.1-1.2) X10*3/uL Eos # (Auto) 0.2 (0.0-0.4) X10*3/uL Baso # (Auto) 0.0 (0.0-0.2) X10*3/uL Abs Immat Gran (auto) 0.02 (0.00-0.03) X10*3/uL Absolute Neuts (auto) 4.8 (2.0-8.3) x10*3/uL Absolute Nucleated RBC 0.000 (0.0-0.012) X10*3/uL Nucleated RBC % (auto) 0.0 (0.0-0.2) /100WBC PT 21.3 H (10.0-13.1) SEC INR 1.8 H (0.9-1.1) Sodium 135 (135-145) mmol/L Potassium 3.8 (3.3-5.1) mmol/L Chloride 101 (96-108) mmol/L Carbon Dioxide 24 (22-29) mmol/L Anion Gap 14 (12-20) BUN 15 (9-16) mg/dL Creatinine 1.82 H (0.5-1.4) mg/dL Estim Creat Clear Calc 42.9 Estimated GFR 36 Random Glucose 176 H (60-115) mg/dL Lactic Acid (0.5-2.0) mmol/L Lactic Acid F/U @ 2Hr (0.5-2.0) mmol/L Calcium 8.7 (8.4-10.2) mg/dL Magnesium 1.6 (1.6-2.6) mg/dL Total Bilirubin 0.4 (0.0-1.0) mg/dL Direct Bilirubin 0.2 (0.0-0.5) mg/dL AST 14 (5-37) U/L ALT 12 (0-40) U/L Alkaline Phosphatase 50 (39-117) U/L Troponin I High Sens (<3.5-35.0) ng/L Total Protein 5.7 L (6.5-8.0) g/dL Albumin 3.5 (3.5-5.0) g/dL Urine Color Urine Appearance Urine pH (5.0-9.0) Ur Specific Stanton (1.005-1.025) Urine Protein (Neg-Trace) mg/dL Urine Glucose (UA) (Negative) mg/dL Urine Ketones (Negative) mg/dL Urine Blood (Negative) Urine Nitrite (Negative) Ur Leukocyte Esterase (Negative) Urine RBC (0-2) /HPF Urine WBC (0-5) /HPF Ur Squamous Epith Cells (0-2) /HPF Urine Bacteria (None Seen) Hyaline Casts (0-2) /LPF COVID-19 ([facility]) (Negative) COVID-19 Clin Com 10/21/22 10/21/22 10/21/22 Range/Units 12:19 12:19 12:19 WBC (4.8-10.8) X10*3/uL RBC (4.60-5.80) X10*6/uL Hgb (14.0-18.0) g/dl Hct (42.0-52.0) % MCV (80.0-98.0) fL MCH (27.0-33.0) pg MCHC (31.0-36.0) g/dl RDW (11.0-16.0) % Plt Count (160-400) X10*3/uL MPV (9.4-12.4) fL Immature Gran % (Auto) (0.0-0.4) % Neut % (Auto) (45-73) % Lymph % (Auto) (20-40) % Forrest % (Auto) (2-11) % Eos % (Auto) (0-4) % Baso % (Auto) (0-2) % Lymph # (Auto) (1.2-4.9) X10*3/uL Forrest # (Auto) (0.1-1.2) X10*3/uL Eos # (Auto) (0.0-0.4) X10*3/uL Baso # (Auto) (0.0-0.2) X10*3/uL Abs Immat Gran (auto) (0.00-0.03) X10*3/uL Absolute Neuts (auto) (2.0-8.3) x10*3/uL Absolute Nucleated RBC (0.0-0.012) X10*3/uL Nucleated RBC % (auto) (0.0-0.2) /100WBC PT (10.0-13.1) SEC INR (0.9-1.1) Sodium (135-145) mmol/L Potassium (3.3-5.1) mmol/L Chloride (96-108) mmol/L Carbon Dioxide (22-29) mmol/L Anion Gap (12-20) BUN (9-16) mg/dL Creatinine (0.5-1.4) mg/dL Estim Creat Clear Calc Estimated GFR Random Glucose (60-115) mg/dL Lactic Acid 2.9 H* (0.5-2.0) mmol/L Lactic Acid F/U @ 2Hr (0.5-2.0) mmol/L Calcium (8.4-10.2) mg/dL Magnesium (1.6-2.6) mg/dL Total Bilirubin (0.0-1.0) mg/dL Direct Bilirubin (0.0-0.5) mg/dL AST (5-37) U/L ALT (0-40) U/L Alkaline Phosphatase (39-117) U/L Troponin I High Sens 3.7 (<3.5-35.0) ng/L Total Protein (6.5-8.0) g/dL Albumin (3.5-5.0) g/dL Urine Color Urine Appearance Urine pH (5.0-9.0) Ur Specific Stanton (1.005-1.025) Urine Protein (Neg-Trace) mg/dL Urine Glucose (UA) (Negative) mg/dL Urine Ketones (Negative) mg/dL Urine Blood (Negative) Urine Nitrite (Negative) Ur Leukocyte Esterase (Negative) Urine RBC (0-2) /HPF Urine WBC (0-5) /HPF Ur Squamous Epith Cells (0-2) /HPF Urine Bacteria (None Seen) Hyaline Casts (0-2) /LPF COVID-19 ([facility]) Positive A (Negative) COVID-19 Clin Com See Note 10/21/22 10/21/22 10/21/22 Range/Units 14:06 15:20 16:13 WBC (4.8-10.8) X10*3/uL RBC (4.60-5.80) X10*6/uL Hgb (14.0-18.0) g/dl Hct (42.0-52.0) % MCV (80.0-98.0) fL MCH (27.0-33.0) pg MCHC (31.0-36.0) g/dl RDW (11.0-16.0) % Plt Count (160-400) X10*3/uL MPV (9.4-12.4) fL Immature Gran % (Auto) (0.0-0.4) % Neut % (Auto) (45-73) % Lymph % (Auto) (20-40) % Forrest % (Auto) (2-11) % Eos % (Auto) (0-4) % Baso % (Auto) (0-2) % Lymph # (Auto) (1.2-4.9) X10*3/uL Forrest # (Auto) (0.1-1.2) X10*3/uL Eos # (Auto) (0.0-0.4) X10*3/uL Baso # (Auto) (0.0-0.2) X10*3/uL Abs Immat Gran (auto) (0.00-0.03) X10*3/uL Absolute Neuts (auto) (2.0-8.3) x10*3/uL Absolute Nucleated RBC (0.0-0.012) X10*3/uL Nucleated RBC % (auto) (0.0-0.2) /100WBC PT (10.0-13.1) SEC INR (0.9-1.1) Sodium 136 (135-145) mmol/L Potassium 3.8 (3.3-5.1) mmol/L Chloride 103 (96-108) mmol/L Carbon Dioxide 25 (22-29) mmol/L Anion Gap 12 (12-20) BUN 14 (9-16) mg/dL Creatinine 1.69 H (0.5-1.4) mg/dL Estim Creat Clear Calc 46.2 Estimated GFR 40 Random Glucose 207 H (60-115) mg/dL Lactic Acid (0.5-2.0) mmol/L Lactic Acid F/U @ 2Hr 3.4 H* (0.5-2.0) mmol/L Calcium 8.5 (8.4-10.2) mg/dL Magnesium (1.6-2.6) mg/dL Total Bilirubin (0.0-1.0) mg/dL Direct Bilirubin (0.0-0.5) mg/dL AST (5-37) U/L ALT (0-40) U/L Alkaline Phosphatase (39-117) U/L Troponin I High Sens (<3.5-35.0) ng/L Total Protein (6.5-8.0) g/dL Albumin (3.5-5.0) g/dL Urine Color Yellow Urine Appearance Cloudy Urine pH 5.5 (5.0-9.0) Ur Specific Stanton 1.020 (1.005-1.025) Urine Protein 30 (1+) H (Neg-Trace) mg/dL Urine Glucose (UA) Negative (Negative) mg/dL Urine Ketones Trace (Negative) mg/dL Urine Blood Large (3+) H (Negative) Urine Nitrite Negative (Negative) Ur Leukocyte Esterase Trace H (Negative) Urine RBC >20 H (0-2) /HPF Urine WBC 0-5 (0-5) /HPF Ur Squamous Epith Cells 0-2 (0-2) /HPF Urine Bacteria None Seen (None Seen) Hyaline Casts 3-5 (0-2) /LPF COVID-19 ([facility]) (Negative) COVID-19 Clin Com <Lillian Harrisfavio, [employer]INE [employer]ATOR - Last Filed: 10/21/22 12:02> Lab Results 10/21/22 10/21/22 10/21/22 Range/Units 12:19 12:19 12:19 WBC 6.7 (4.8-10.8) X10*3/uL RBC 3.84 L (4.60-5.80) X10*6/uL Hgb 12.0 L (14.0-18.0) g/dl Hct 34.9 L (42.0-52.0) % MCV 90.9 (80.0-98.0) fL MCH 31.3 (27.0-33.0) pg MCHC 34.4 (31.0-36.0) g/dl RDW 12.2 (11.0-16.0) % Plt Count 148 L (160-400) X10*3/uL MPV 9.3 L (9.4-12.4) fL Immature Gran % (Auto) 0.3 (0.0-0.4) % Neut % (Auto) 71.4 (45-73) % Lymph % (Auto) 17.3 L (20-40) % Forrest % (Auto) 8.5 (2-11) % Eos % (Auto) 2.2 (0-4) % Baso % (Auto) 0.3 (0-2) % Lymph # (Auto) 1.2 (1.2-4.9) X10*3/uL Forrest # (Auto) 0.6 (0.1-1.2) X10*3/uL Eos # (Auto) 0.2 (0.0-0.4) X10*3/uL Baso # (Auto) 0.0 (0.0-0.2) X10*3/uL Abs Immat Gran (auto) 0.02 (0.00-0.03) X10*3/uL Absolute Neuts (auto) 4.8 (2.0-8.3) x10*3/uL Absolute Nucleated RBC 0.000 (0.0-0.012) X10*3/uL Nucleated RBC % (auto) 0.0 (0.0-0.2) /100WBC PT 21.3 H (10.0-13.1) SEC INR 1.8 H (0.9-1.1) Sodium 135 (135-145) mmol/L Potassium 3.8 (3.3-5.1) mmol/L Chloride 101 (96-108) mmol/L Carbon Dioxide 24 (22-29) mmol/L Anion Gap 14 (12-20) BUN 15 (9-16) mg/dL Creatinine 1.82 H (0.5-1.4) mg/dL Estim Creat Clear Calc 42.9 Estimated GFR 36 Random Glucose 176 H (60-115) mg/dL Lactic Acid (0.5-2.0) mmol/L Lactic Acid F/U @ 2Hr (0.5-2.0) mmol/L Calcium 8.7 (8.4-10.2) mg/dL Magnesium 1.6 (1.6-2.6) mg/dL Total Bilirubin 0.4 (0.0-1.0) mg/dL Direct Bilirubin 0.2 (0.0-0.5) mg/dL AST 14 (5-37) U/L ALT 12 (0-40) U/L Alkaline Phosphatase 50 (39-117) U/L Troponin I High Sens (<3.5-35.0) ng/L Total Protein 5.7 L (6.5-8.0) g/dL Albumin 3.5 (3.5-5.0) g/dL Urine Color Urine Appearance Urine pH (5.0-9.0) Ur Specific Stanton (1.005-1.025) Urine Protein (Neg-Trace) mg/dL Urine Glucose (UA) (Negative) mg/dL Urine Ketones (Negative) mg/dL Urine Blood (Negative) Urine Nitrite (Negative) Ur Leukocyte Esterase (Negative) Urine RBC (0-2) /HPF Urine WBC (0-5) /HPF Ur Squamous Epith Cells (0-2) /HPF Urine Bacteria (None Seen) Hyaline Casts (0-2) /LPF COVID-19 ([facility]) (Negative) COVID-19 Clin Com 10/21/22 10/21/22 10/21/22 Range/Units 12:19 12:19 12:19 WBC (4.8-10.8) X10*3/uL RBC (4.60-5.80) X10*6/uL Hgb (14.0-18.0) g/dl Hct (42.0-52.0) % MCV (80.0-98.0) fL MCH (27.0-33.0) pg MCHC (31.0-36.0) g/dl RDW (11.0-16.0) % Plt Count (160-400) X10*3/uL MPV (9.4-12.4) fL Immature Gran % (Auto) (0.0-0.4) % Neut % (Auto) (45-73) % Lymph % (Auto) (20-40) % Forrest % (Auto) (2-11) % Eos % (Auto) (0-4) % Baso % (Auto) (0-2) % Lymph # (Auto) (1.2-4.9) X10*3/uL Forrest # (Auto) (0.1-1.2) X10*3/uL Eos # (Auto) (0.0-0.4) X10*3/uL Baso # (Auto) (0.0-0.2) X10*3/uL Abs Immat Gran (auto) (0.00-0.03) X10*3/uL Absolute Neuts (auto) (2.0-8.3) x10*3/uL Absolute Nucleated RBC (0.0-0.012) X10*3/uL Nucleated RBC % (auto) (0.0-0.2) /100WBC PT (10.0-13.1) SEC INR (0.9-1.1) Sodium (135-145) mmol/L Potassium (3.3-5.1) mmol/L Chloride (96-108) mmol/L Carbon Dioxide (22-29) mmol/L Anion Gap (12-20) BUN (9-16) mg/dL Creatinine (0.5-1.4) mg/dL Estim Creat Clear Calc Estimated GFR Random Glucose (60-115) mg/dL Lactic Acid 2.9 H* (0.5-2.0) mmol/L Lactic Acid F/U @ 2Hr (0.5-2.0) mmol/L Calcium (8.4-10.2) mg/dL Magnesium (1.6-2.6) mg/dL Total Bilirubin (0.0-1.0) mg/dL Direct Bilirubin (0.0-0.5) mg/dL AST (5-37) U/L ALT (0-40) U/L Alkaline Phosphatase (39-117) U/L Troponin I High Sens 3.7 (<3.5-35.0) ng/L Total Protein (6.5-8.0) g/dL Albumin (3.5-5.0) g/dL Urine Color Urine Appearance Urine pH (5.0-9.0) Ur Specific Stanton (1.005-1.025) Urine Protein (Neg-Trace) mg/dL Urine Glucose (UA) (Negative) mg/dL Urine Ketones (Negative) mg/dL Urine Blood (Negative) Urine Nitrite (Negative) Ur Leukocyte Esterase (Negative) Urine RBC (0-2) /HPF Urine WBC (0-5) /HPF Ur Squamous Epith Cells (0-2) /HPF Urine Bacteria (None Seen) Hyaline Casts (0-2) /LPF COVID-19 ([facility]) Positive A (Negative) COVID-19 Clin Com See Note 10/21/22 10/21/22 10/21/22 Range/Units 14:06 15:20 16:13 WBC (4.8-10.8) X10*3/uL RBC (4.60-5.80) X10*6/uL Hgb (14.0-18.0) g/dl Hct (42.0-52.0) % MCV (80.0-98.0) fL MCH (27.0-33.0) pg MCHC (31.0-36.0) g/dl RDW (11.0-16.0) % Plt Count (160-400) X10*3/uL MPV (9.4-12.4) fL Immature Gran % (Auto) (0.0-0.4) % Neut % (Auto) (45-73) % Lymph % (Auto) (20-40) % Forrest % (Auto) (2-11) % Eos % (Auto) (0-4) % Baso % (Auto) (0-2) % Lymph # (Auto) (1.2-4.9) X10*3/uL Forrest # (Auto) (0.1-1.2) X10*3/uL Eos # (Auto) (0.0-0.4) X10*3/uL Baso # (Auto) (0.0-0.2) X10*3/uL Abs Immat Gran (auto) (0.00-0.03) X10*3/uL Absolute Neuts (auto) (2.0-8.3) x10*3/uL Absolute Nucleated RBC (0.0-0.012) X10*3/uL Nucleated RBC % (auto) (0.0-0.2) /100WBC PT (10.0-13.1) SEC INR (0.9-1.1) Sodium 136 (135-145) mmol/L Potassium 3.8 (3.3-5.1) mmol/L Chloride 103 (96-108) mmol/L Carbon Dioxide 25 (22-29) mmol/L Anion Gap 12 (12-20) BUN 14 (9-16) mg/dL Creatinine 1.69 H (0.5-1.4) mg/dL Estim Creat Clear Calc 46.2 Estimated GFR 40 Random Glucose 207 H (60-115) mg/dL Lactic Acid (0.5-2.0) mmol/L Lactic Acid F/U @ 2Hr 3.4 H* (0.5-2.0) mmol/L Calcium 8.5 (8.4-10.2) mg/dL Magnesium (1.6-2.6) mg/dL Total Bilirubin (0.0-1.0) mg/dL Direct Bilirubin (0.0-0.5) mg/dL AST (5-37) U/L ALT (0-40) U/L Alkaline Phosphatase (39-117) U/L Troponin I High Sens (<3.5-35.0) ng/L Total Protein (6.5-8.0) g/dL Albumin (3.5-5.0) g/dL Urine Color Yellow Urine Appearance Cloudy Urine pH 5.5 (5.0-9.0) Ur Specific Stanton 1.020 (1.005-1.025) Urine Protein 30 (1+) H (Neg-Trace) mg/dL Urine Glucose (UA) Negative (Negative) mg/dL Urine Ketones Trace (Negative) mg/dL Urine Blood Large (3+) H (Negative) Urine Nitrite Negative (Negative) Ur Leukocyte Esterase Trace H (Negative) Urine RBC >20 H (0-2) /HPF Urine WBC 0-5 (0-5) /HPF Ur Squamous Epith Cells 0-2 (0-2) /HPF Urine Bacteria None Seen (None Seen) Hyaline Casts 3-5 (0-2) /LPF COVID-19 ([facility]) (Negative) COVID-19 Clin Com <Sheryl Awad MD - Last Filed: 10/21/22 17:44> Independent Interpretation I performed an independent interpretation of an: EKG <Sheryl Awad MD - Last Filed: 10/21/22 17:44> Interpretation: Normal sinus rhythm, HR-65, no STEMI, AR/QRS/QTC is within normal limits. <Sheryl Awad MD - Last Filed: 10/21/22 17:44> Radiology Impression Radiologist Impression: My interpretation is in agreement with radiology use compression of imaging study. <Sheryl Awad MD - Last Filed: 10/21/22 17:44> External Record Review External record reviewed: Outpatient record and Prior outpatient labs <Sheryl Awad MD - Last Filed: 10/21/22 17:44> Chronic Conditions Patient?s care impacted by: Diabetes and Hypertension <Sheryl Awad MD - Last Filed: 10/21/22 17:4 4> Critical Care Time Critical Care Time Critical Care Time: Yes <Sheryl Awad MD - Last Filed: 10/21/22 17:44> Total Critical Care Time: 45 <Sheryl Awad MD - Last Filed: 10/21/22 17:44> Attestation: I personally attest to this time spent taking care of the patient. <Sheryl Awad MD - Last Filed: 10/21/22 17:44> Discharge Plan Discharge Clinical Impression: KRYS (acute kidney injury), Medication side effect, Hematuria <Lillian Adler NP - Last Filed: 10/21/22 12:02> Patient Disposition: Home, Self-Care <Lillian Adler NP - Last Filed: 10/21/22 12:02> Instructions: Acute Kidney Injury (DC), Adverse Drug Reaction (ED), Hematuria (ED) <Lillian Adler NP - Last Filed: 10/21/22 12:02> Additional Instructions: 1. Resume all home medications as prescribed. You will need to increase your water intake to help improve your kidney function. 2. Please check your blood pressure each morning prior to taking it your valsartan/hydrochlorothiazide medication and if the SBP is 120 or less do not take this medication. 3. 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 You will need to repeat your kidney function test. Return to the ER for any worsening symptoms. <Lillian Adler NP - Last Filed: 10/21/22 12:02> Prescriptions: No Action ipratropium bromide 0.02 % solution 2.5 ml inhalation QID 90 Days Qty: 1080 1RF ipratropium bromide 21 mcg (0.03 %) spray,non-aerosol 2 spray intranasal BID-TID PRN (Reason: for allergies) Qty: 30 6RF tiotropium bromide 2.5 mcg/actuation mist 2 inh inhalation DAILY 90 Days Qty: 3 3RF metformin 500 mg tablet 2 tab PO BIDWM valsartan-hydrochlorothiazide 160-25 mg tablet 1 tab PO DAILY cholecalciferol (vitamin D3) [Vitamin D3] 50 mcg (2,000 unit) Tablet 100 mcg PO DAILY rosuvastatin [Crestor] 20 mg tablet 20 mg PO BEDTIME Eliquis 5 mg tablet 5 mg PO BID nitroglycerin 0.4 mg tablet, sublingual 0.4 mg sublingual Q5M PRN (Reason: Chest Pain) Rx Instructions: do not exceed 3 doses per episode diltiazem HCl 240 mg capsule,extended release 24hr 240 mg PO DAILY tamsulosin 0.4 mg capsule 0.4 mg PO DAILY metoprolol succinate 25 mg tablet extended release 24 hr 25 mg PO BID <Lillian Adler NP - Last Filed: 10/21/22 12:02>
[2022-10-21 11:55] VITALS: BP 88/50; PULSE 74; RESP 16; TEMP 36.5; O2SAT 97
--- NOTE | 2022-10-21 11:59 | ECG_ITS ---
Test Reason : low blood pressure Blood Pressure : / mmHG Vent. Rate : 065 BPM Atrial Rate : 065 BPM P-R Int : 148 ms QRS Dur : 086 ms QT Int : 414 ms P-R-T Axes : 063 069 070 degrees QTc Int : 430 ms Normal sinus rhythm Nonspecific ST and T wave abnormality Abnormal ECG When compared with ECG of 26-MAR-2021 17:49, No significant changes seen Referred By: Lillian Adler Electronically Signed By:HUBER ANTON
[2022-10-21 12:23] LABS: MANUAL DIFF FLAG NO
[2022-10-21 12:24] LABS: Basophils Percent Auto 0.3 % (0-2); Eosinophils Absolute Auto 0.2 X10*3/uL (0.0-0.4); Eosinophils Percent Auto 2.2 % (0-4); Hematocrit 34.9 % (42.0-52.0); Imm Gran Abs Auto 0.02 X10*3/uL (0.00-0.03); Imm Gran Pct Auto 0.3 % (0.0-0.4); Lymphocytes Absolute Auto 1.2 X10*3/uL (1.2-4.9); Lymphocytes Percent Auto 17.3 % (20-40); Mean Corpuscular HGB Conc 34.4 g/dl (31.0-36.0); Mean Corpuscular Hemoglobin 31.3 pg (27.0-33.0); Mean Corpuscular Volume 90.9 fL (80.0-98.0); Mean Platelet Volume 9.3 fL (9.4-12.4); Monocytes Absolute Auto 0.6 X10*3/uL (0.1-1.2); Monocytes Percent Auto 8.5 % (2-11); Neutrophils Absolute Auto 4.8 x10*3/uL (2.0-8.3); Neutrophils Percent Auto 71.4 % (45-73); Platelet Count 148 X10*3/uL (160-400); Red Blood Count 3.84 X10*6/uL (4.60-5.80); Red Cell Distribution Width 12.2 % (11.0-16.0); White Blood Count 6.7 X10*3/uL (4.8-10.8)
[2022-10-21 12:34] LABS: INTERNATIONAL NORM RATIO 1.8 (0.9-1.1); Prothrombin Time 21.3 SEC (10.0-13.1)
[2022-10-21 12:39] LABS: COVID-19 Test Positive (Negative); IDNOW Serial# BCCEAD1C
[2022-10-21 12:44] LABS: Alanine Aminotransferase 12 U/L (0-40); Albumin Level 3.5 g/dL (3.5-5.0); Alkaline Phosphatase 50 U/L (39-117); Anion Gap 14 (12-20); Aspartate Amino Transferase 14 U/L (5-37); Bilirubin Direct 0.2 mg/dL (0.0-0.5); Bilirubin Total 0.4 mg/dL (0.0-1.0); Blood Urea Nitrogen 15 mg/dL (9-16); Calcium 8.7 mg/dL (8.4-10.2); Carbon Dioxide 24 mmol/L (22-29); Chloride 101 mmol/L (96-108); Creatinine Clr Calc Pharmacy 42.9; Estimated Glomerular Filt Rate 36; Glucose Random 176 mg/dL (60-115); Magnesium 1.6 mg/dL (1.6-2.6); Potassium 3.8 mmol/L (3.3-5.1); Sodium 135 mmol/L (135-145); Total Protein 5.7 g/dL (6.5-8.0)
[2022-10-21 12:49] LABS: Lactic Acid 2.9 mmol/L (0.5-2.0)
[2022-10-21 12:51] LABS: Troponin-I High Sensitivity 3.7 ng/L (<3.5-35.0)
[2022-10-21] MEDS: 0.9 % Sodium Chloride 500 ML 999 ML IV (13:40)
[2022-10-21 14:17] LABS: Appearance Urine Cloudy; Color Urine Yellow; Glucose Urine UA Negative (Negative); Leukocyte Esterase Urine Trace (Negative); Nitrite Urine Negative (Negative); PH 5.5 (5.0-9.0); UMIC TRIGGER UACC YES; Urine Blood Large (3+) (Negative); Urine Ketones Trace mg/dL (Negative); Urine Protein 30 (1+) mg/dL (Neg-Trace)
[2022-10-21 14:21] LABS: Reflex Lactate? Lactic Acid Added
[2022-10-21 14:27] LABS: Bacteria Urine None Seen (None Seen); RBC Urine >20 /HPF (0-2); Squamous Epithelial Cell Urine 0-2 /HPF (0-2); WBC Urine 0-5 /HPF (0-5)
[2022-10-21 15:22] VITALS: BP 127/50; PULSE 65; RESP 20; O2SAT 98
[2022-10-21 15:53] LABS: ~Lactic Acid-LAB USE ONLY 3.4 mmol/L (0.5-2.0)
[2022-10-21 16:41] LABS: Anion Gap 12 (12-20); Blood Urea Nitrogen 14 mg/dL (9-16); Calcium 8.5 mg/dL (8.4-10.2); Carbon Dioxide 25 mmol/L (22-29); Chloride 103 mmol/L (96-108); Creatinine Clr Calc Pharmacy 46.2; Estimated Glomerular Filt Rate 40; Glucose Random 207 mg/dL (60-115); Potassium 3.8 mmol/L (3.3-5.1); Sodium 136 mmol/L (135-145)
[2022-10-21 17:23] LABS: Reflex Lactate? 2 Y
== END 2022-10-21 18:25 | disposition home or self-care (01) ==
PROVIDERS: Nurse Practitioner Family; Emergency Provider Student in an Organized Health Care Education/Training Program
DX: N17.9 Acute kidney failure, unspecified (principal); R31.9 Hematuria, unspecified; G47.33 Obstructive sleep apnea (adult) (pediatric); I95.9 Hypotension, unspecified; Z79.899 Other long term (current) drug therapy; Z20.822 Contact with and (suspected) exposure to COVID-19; Z20.828 Contact with and (suspected) exposure to other viral communicable diseases
CPT/HCPCS: 36415; 71046; 80048; 80076; 81001; 83605; 83735; 84484; 85025; 85610; 87040; 87635; 93005; 96360; 99212; 99284

== ENCOUNTER 2023-10-13 15:03 | Outpatient (AMB) | payer MEDICARE, SELFPAY ==
[2023-10-13 15:19] VITALS: PULSE 73; O2SAT 97; BMI 29.0
--- NOTE | 2023-10-13 15:19 | MHC.OFFVIS ---
Intake Vital Signs 10/13/23 15:19 Height 6 ft 1 in Weight 220 lb BMI 29.0 Pulse 73 Pulse Source Pulse Oximeter Pulse Oximetry (%) 97 Oxygen Delivery Method Room Air Intake Visit Reasons: bronchitis Fabric Normalizer Required: No Allergies No Known Allergies Allergy (Verified 10/13/23 15:20) HPI HPI Comments History of Present Illness Details The patient is a 78-year-old gentleman with chronic bronchitis and COPD. He did undergo bronchoscopy demonstrating significant tracheobronchomalacia. He has been responding reasonable to that therapy including his respiratory inhalers and the azithromycin Tuesday and Tuesday. The main reason for the azithromycin is for the anti-inflammatory properties that have decreased exacerbations. It also promotility agent decreasing the risk of micro aspirations in to the lung. And less likely to use for the antibiotic antimicrobial component. Usually is hard for him to expectorate. He does have nasal congestion has been rinsing his nose. My feeling is that he is probably having post nasal drip resulting in upper airway cough syndrome. He is using pillows and a wedge pillow to keep him elevated at least 30. Also recently he had to be cardioverted for it tachyarrhythmia. He responded well to that. We did review his chest x-ray that he had last September demonstrating again atelectasis to the left base. We attempt to send a sputum culture. However, it was contaminated. 01/21/2020, He was treated for COPD exacerbation with prednisone antibiotics and he did get better. Unfortunately, then he had to restart a prednisone taper for worsening respiratory symptoms. We did send a sputum culture during the last visit but it was contaminated with saliva. Therefore cannot be sent for culture. He did notice that he had more whitish sputum which was sticky during his last exacerbation but no longer. He feels like is getting back to baseline. He still on the higher dose azithromycin 500 Tuesday. Seems to be tolerating it okay. Will have to do an EKG when he comes and March. Right now he is off prednisone. I did talk about the importance of him going to the hospital with the case his respiratory status gets worsen. 03/17/2021 the patient is here for sick visit. For the last several weeks he has been having significant cough in addition to chest tightness and wheezing. He was exposed to sick contact and developed upper respiratory illness symptoms. Initially he was the food for COVID-19 and was indeed negative. The patient was seen by his primary care doctor providing amoxicillin. Patient did not significantly improved however. He continued having significant coughing with specially with severe nighttime. He is also having issues with the atrial fibrillation. He continues on the amiodarone although the dose was significantly decreased due to adverse side effects. He has failed multiple cardioversions and now being followed by electrophysiology. 03/25/2021 the patient is here for sick visit. He was here last week with worsening respiratory symptoms significant chest tightness and wheezing after a sick contact. Was given prednisone and also doxycycline. Over the weekend he condition got worse and he went to the ER. He was given additional steroids. He was kept in the doxycycline. The patient has continued to get worse. He has significant shortness of breath moderate severity. He has been using the nebulizer around the clock. He did have a chest x-ray demonstrating opacity to the left lower lung zone. This is consistent with significant tracheobronchomalacia in atelectasis of lower lobe however could be development of a bronchopneumonia. The patient does have issues with AFib requiring significant cardioversion is currently amiodarone. in addition to that he has been dealing with significant thrush where he developing even painful swallow due to the significant thrush. Initially he was given Solu-Medrol 125 mg IM x1 and was given 2 treatments with Xopenex. Tolerated this treatments well initially but then he became more short breath. We briefly took the patient for a walking oximetry test any desaturated to 86%. The patient at this point is failing outpatient therapy and needs to come into the hospital for inpatient medical therapy. 04/10/2021 the patient is here for hospital follow-up visit. Patient had to be hospitalized for his worsening respiratory symptoms. His viral panel was positive for enterovirus. He was treated with antibiotics and prednisone. He was sent home. He continues to have shortness of breath. He was then readmitted to [facility] with atrial fibrillation with rapid ventricular response. His amiodarone was increased. At this point the patient is considering undergoing cardiac ablation. His cough is overall better although he still having some shortness of breath and cough specially at nighttime. Therefore, will provide him cough suppressant therapy but increase his chest physical therapy for better bronchopulmonary hygiene. With a consider bronchoscopy. But, at this point we will optimize his respiratory therapy in order for him to have successful ablation then after worse with can reassess and consider bronchoscopy for both diagnostic and therapeutic purposes. I did review his chest x-ray from [facility] which is reassuring but still has atelectasis to the left base. 06/11/2021 the patient is here for a pulmonary follow-up visit. The patient recently had a cardiac ablation and had to be placed back on the amiodarone. He again describes significant fatigue decreased energy. Patient could not tolerate the high dose so therefore he was brought down to a minimum dose of 100 mg of amiodarone 3 times a week. Seems to be doing a little better. In the meantime his cough is better he has not been using any albuterol because of the atrial fibrillation. He was also told to stop the Advair and also the budesonide. At this point will try to simplify his respiratory regimen provide 1 that is not going to interact with his cardiac medications for cardiac condition. Therefore, the patient will continue Spiriva. Will also recent in the budesonide that he can use daily in addition starting ipratropium nebs that he can use up to 4 times a day. 10/12/2021 the patient had a telephone encounter. Since we last spoke he did undergo his cardiac ablation. It took him a while to recover. But now that he has recovered he is doing a lot better. He has not had any more atrial fibrillation. He was able to be taken off the amiodarone. A lot of his symptoms improved after coming off the amiodarone that was given him significant adverse effects. The patient continues uses Spiriva with good effect. He has not required any short-acting beta agonist. He has not required any nebulized therapy. Overall the patient has been doing well. He is trying to minimize medications. At this point will continue on his current medications. Will hold off on restarting the azithromycin at this time. 04/12/2022 the patient is here for a pulmonary follow-up visit. Since we last spoke the patient has been doing very well from a respiratory status. He has not had any significant shortness of breath or chest tightness. He still has issues with coughing usually in the morning and he is able to clear secretions. After that he does well. The mucus is typically is white or light yellow in color. Denies any hemoptysis. From a cardiac status he is doing better after the ablation. He continues on the blood thinners and is tolerating well. He still has dyspnea on exertion. Although a little unsteady on his feet. Patient also has a tremor. Start at typical pill rolling tremor although I did talk to the patient if he has ever been evaluated for Parkinson's. the patient also has increased cardiovascular risk factors. He does have some daytime drowsiness. His [place] score is elevated 8/24. His last sleep study was a home sleep study with an AHI of 3.4. Is likely that if he continues to have any increased symptoms that an in-lab sleep study will be much better and acting underlying sleep apnea. Therefore, the patient will consider getting a repeat sleep study and we can discuss that further during the next visit. if he has any worsening symptoms or concerns prior to that he can always call the office for an earlier evaluation 09/28/2022 this is a telehealth visit. The patient recently started developing worsening chest congestion and cough. He was evaluated in the ER where he had a positive COVID test. At the time he was already on prednisone for COPD exacerbation. The patient is also on Eliquis and also on other medications that may interact with Paxlovid. Therefore he was placed on remdesivir home infusion x3 days. He is currently on that. In meantime he is complaining of chest congestion with yellowish phlegm. Moderate severity. The prednisone has been helpful. He is also using his nebulized therapy. Denies any fevers or chills. Overall his cough is a little better which is reassuring. I did review the laboratory data and imaging studies from [facility]. His white counts normal. The patient x-ray demonstrates slight elevation of the left hemithorax but otherwise no acute disease noted which is reassuring. 10/21/2022 the patient is here for a pulmonary health visit. He is now doing better from a respiratory status. He was having to use his nebulizer treatment several times a day because he was having significant coughing chest tightness. He cannot tolerate albuterol due to the fact that he has AFib and very sensitive to the beta agonists. Therefore he was continue to use his anticholinergic therapy. Unfortunately he started developing significant urinary retention. He was evaluated and required a indwelling catheter. Subsequently the indwelling catheter was removed and has been self cathing at home. His respiratory status has been better and therefore has not required his nebulizer medicine. He has also been using Spiriva which is also anticholinergic. The meantime he does complaint of dizziness and lightheadedness along with fatigue. He appeared to be pale in appearance. Initially when he was but in the room his vital signs demonstrated a blood pressure but 150. at the end of the visit we had his blood pressure checked again with orthostatics. Now reading 80/50 and lower when standing. Therefore we had another nurse recheck in confirm. Subsequently I also did orthostatics and again is sitting blood pressure was 90/50 and standing was significantly lower. The patient was symptomatic. Based on the fact that he was having symptomatic hypotension and orthostasis the patient was agreeable to going to the ER. In meantime since he has been having the self cathing he has noticed some minimal degree of bleeding in the last time that he caths himself. Otherwise the catheter itself and not the urine. He does take anticoagulation. He was taken to the ER for further evaluation. 10/13/2023 the patient is here for pulmonary follow-up visit. He has had a very tough Prakash. He started developing worsening respiratory complaints. He did call the office but we had no availability. Went to an urgent care at [place] he had an x-ray done demonstrating no acute disease. The patient ultimately call the office again I sent him a course of antibiotics. Although he started having wheezing chest tightness and felt like he needed prednisone. Went to an Urgent antigen care ended up getting some prednisone and ever since then he has been getting a little better. For the last 2 nights after completing the prednisone and the antibiotics he has gotten a little bit better. On examination he has crackles bilaterally seems to be have more like a bronchiolitis picture or bronchopneumonia. Therefore, based on the fact that he still has the abnormal physical exam I did send him a course of doxycycline that he would restart if his symptoms would worsen. The patient can also use cough medication at nighttime. [facility] Medical History (Updated 10/22/22 @ 00:01 by Mily Haynes) Limb swelling Thrush, oral Atelectasis Chronic bronchitis Bronchopneumonia Tracheobronchomalacia COPD (chronic obstructive pulmonary disease) AIRAM (obstructive sleep apnea) Chronic rhinitis Family History (Updated 03/25/21 @ 23:03 by Ferdinand Elkins MD) Other HTN (hypertension) Social History Household Members: Spouse Housing: House Do you presently have visiting nurse or other home services: No Alcohol intake: never Patient Tobacco Use Status: Never used Tobacco Advance Directives Date on File: 03/25/21 Current occupational status: retired Review of Systems Const Denies chills, Reports fatigue and Denies night sweats Eyes Denies change in vision ENT Denies change in voice, Reports dizziness, Denies lip swelling, Denies mouth pain, Reports nasal congestion, Reports nasal discharge and Denies tongue swelling Card Denies chest pain, Denies irregular heart rhythm, Denies palpitations and Denies dyspnea on exertion Resp Denies change in phlegm color, Denies chest congestion, Reports cough, Denies hemoptysis, Denies dyspnea on exertion and Denies wheezing GI Denies abdominal pain Reports hematuria, Reports difficulty urinating and Reports urinary hesitancy Musc Denies no additional complaints Neuro Denies Neuro-related abnormal movements, Reports dizziness and Denies focal weakness Psych Denies no additional complaints Endo Reports fatigue and Denies palpitations Gage/Lymph Denies easy bleeding and Denies lymphadenopathy Aller/Immun Denies lip swelling, Denies tongue swelling and Denies wheezing Physical Exam Vital Signs: Last Vital Signs Pulse 73 10/13/23 15:19 Pulse Ox 97 10/13/23 15:19 Oxygen Delivery Method Room Air 10/13/23 15:19 BMI result Body Mass Index 29.0 Const General: alert and tired appearing HEENT General nose exam: Nasal discharge present Eyes Conjunctivae: conjunctival abnormal bilateral pallor Neck Neck: Yes normal visual inspection, Yes full ROM and Yes no lymphadenopathy Chest Chest palpation & inspection: normal inspection of the chest Resp Auscultation: no crackles, rales, no rhonchi, no wheezes and diminished lung sounds Cardio Rate: regular rate Rhythm: regular rhythm Heart sounds: S1 normal heart sound present and S2 normal heart sound present GI Palpation (GI): Soft to palpation and nontender Auscultation: normal bowel sounds Skin General skin exam: rashes and/or lesions noted Assessment & Plan Assessment & Plan (1) COPD (chronic obstructive pulmonary disease): Code(s): J44.9 - Chronic obstructive pulmonary disease, unspecified Qualifiers: COPD type: COPD with acute lower respiratory infection Qualified Code(s): J44.0 - Chronic obstructive pulmonary disease with (acute) lower respiratory infection (2) AIRAM (obstructive sleep apnea): Code(s): G47.33 - Obstructive sleep apnea (adult) (pediatric) (3) Bronchopneumonia: Code(s): J18.0 - Bronchopneumonia, unspecified organism Plan CXR start Doxycycline if no better or worsens cough medicine Spiriva 1 puff daily due to the urinary retention nebulizer therapy 1-2 times a day F/U 2-3 months Orders: Orders XR chest 2V Today J18.0 - Bronchopneumonia, unspecified organism Medications: New prednisone PO daily; Take 6 tabs daily x 3 days, then 5 tabs x 3 days, then 4 tabs x 3 days, then 3 tabs x 3 days, then 2 tabs daily x 3 days, then 1 tab x 3 days to complete. 18 days 63 tabs 0RF doxycycline monohydrate 100 mg PO BID 14 days 28 tabs 0RF codeine-guaifenesin 10-100 mg/5 mL 10 mL PO Q6H 10 days PRN 300 mL 0RF cough Coding Level of Care Code Est Pt Level 4 (20720) Diagnoses Chronic obstructive pulmonary disease with acute lower respiratory infection J44.0 COPD type: COPD with acute lower respiratory infection AIRAM (obstructive sleep apnea) G47.33 Bronchopneumonia J18.0 Time Spent (min) 20
== END 2023-10-13 15:46 | disposition home or self-care (01) ==
PROVIDERS: PCP Internal Medicine; Visit Provider Hospitalist
DX: J44.0 Chronic obstructive pulmonary disease with (acute) lower respiratory infection (principal); G47.33 Obstructive sleep apnea (adult) (pediatric); J18.0 Bronchopneumonia, unspecified organism
CPT/HCPCS: 99214

== ENCOUNTER → 2023-10-13 15:03 | Outpatient (BNVA) | payer MEDICARE, SELFPAY | PROVIDERS: PCP Internal Medicine; Visit Provider Hospitalist | DX: J18.0 Bronchopneumonia, unspecified organism (principal); J44.0 Chronic obstructive pulmonary disease with (acute) lower respiratory infection; G47.33 Obstructive sleep apnea (adult) (pediatric) | CPT/HCPCS: 99212 ==

== ENCOUNTER 2023-11-21 10:38 | Outpatient (AMB) | payer MEDICARE, SELFPAY ==
[2023-11-21 10:47] VITALS: PULSE 63; O2SAT 97; BMI 30.3
--- NOTE | 2023-11-21 10:47 | A.OFFVIS_ITS ---
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 He has been responding reasonable to that therapy including his respiratory inhalers and the azithromycin Tuesday and Tuesday. The main reason for the azithromycin is for the anti-inflammatory properties that have decreased exacerbations. It also promotility agent decreasing the risk of micro aspirations in to the lung. And less likely to use for the antibiotic antimicrobial component. Usually is hard for him to expectorate. He does have nasal congestion has been rinsing his nose. My feeling is that he is probably having post nasal drip resulting in upper airway cough syndrome. He is using pillows and a wedge pillow to keep him elevated at least 30. Also recently he had to be cardioverted for it tachyarrhythmia. He responded well to that. We did review his chest x-ray that he had last September demonstrating again atelectasis to the left base. We attempt to send a sputum culture. However, it was contaminated. 01/21/2020, He was treated for COPD exacerbation with prednisone antibiotics and he did get better. Unfortunately, then he had to restart a prednisone taper for worsening respiratory symptoms. We did send a sputum culture during the last visit but it was contaminated with saliva. Therefore cannot be sent for culture. He did notice that he had more whitish sputum which was sticky during his last exacerbation but no longer. He feels like is getting back to baseline. He still on the higher dose azithromycin 500 Tuesday. Seems to be tolerating it okay. Will have to do an EKG when he comes and March. Right now he is off prednisone. I did talk about the importance of him going to the hospital with the case his respiratory status gets worsen. 09/28/2022 this is a telehealth visit. The patient recently started developing worsening chest congestion and cough. He was evaluated in the ER where he had a positive COVID test. At the time he was already on prednisone for COPD exacerbation. The patient is also on Eliquis and also on other medic ations that may interact with Paxlovid. Therefore he was placed on remdesivir home infusion x3 days. He is currently on that. In meantime he is complaining of chest congestion with yellowish phlegm. Moderate severity. The prednisone has been helpful. He is also using his nebulized therapy. Denies any fevers or chills. Overall his cough is a little better which is reassuring. I did review the laboratory data and imaging studies from [facility]. His white counts normal. The patient x-ray demonstrates slight elevation of the left hemithorax but otherwise no acute disease noted which is reassuring. 10/21/2022 the patient is here for a pulmonary health visit. He is now doing better from a respiratory status. He was having to use his nebulizer treatment several times a day because he was having significant coughing chest tightness. He cannot tolerate albuterol due to the fact that he has AFib and very sensitive to the beta agonists. Therefore he was continue to use his anticholinergic therapy. Unfortunately he started developing significant urinary retention. He was evaluated and required a indwelling catheter. Subsequently the indwelling catheter was removed and has been self cathing at home. His respiratory status has been better and therefore has not required his nebulizer medicine. He has also been using Spiriva which is also anticholinergic. The meantime he does complaint of dizziness and lightheadedness along with fatigue. He appeared to be pale in appearance. Initially when he was but in the room his vital signs demonstrated a blood pressure but 150. at the end of the visit we had his blood pressure checked again with orthostatics. Now reading 80/50 and lower when standing. Therefore we had another nurse recheck in confirm. Subsequently I cedric stringero did orthostatics and again is sitting blood pressure was 90/50 and standing was significantly lower. The patient was symptomatic. Based on the fact that he was having symptomatic hypotension and orthostasis the patient was agreeable to going to the ER. In meantime since he has been having the self cathing he has noticed some minimal degree of bleeding in the last time that he caths himself. Otherwise the catheter itself and not the urine. He does take anticoagulation. He was taken to the ER for further evaluation. 10/13/2023 the patient is here for pulmonary follow-up visit. He has had a very tough August. He started developing worsening respiratory complaints. He did call the office but we had no availability. Went to an urgent care at [facility] he had an x-ray done demonstrating no acute disease. The patient ultimately call the office again I sent him a course of antibiotics. Although he started having wheezing chest tightness and felt like he needed prednisone. Went to an Urgent antigen care ended up getting some prednisone and ever since then he has been getting a little better. For the last 2 nights after completing the prednisone and the antibiotics he has gotten a little bit better. On examination he has crackles bilaterally seems to be have more like a bronchiolitis picture or bronchopneumonia. Therefore, based on the fact that he still has the abnormal physical exam I did send him a course of doxycycline that he would restart if his symptoms would worsen. The patient can also use cough medication at nighttime. 11/21/2023 the patient is here for a pulmonary follow-up visit. He is finally feeling better. He is back to his baseline respiratory symptoms. The patient no longer on antibiotics or prednisone. He continues uses respiratory therapy as prescribed. Sometimes he does have a hard time expectorating. Will try hypertonic saline at this time to see if he is able to use a nebulizer follow up with the Acapella valve to help mucus secretions. 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 He also has a history atrial fibrillation so he is trying to minimize the use of the albuterol. 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 Denies any issues with urinary retention. On examination he does have diminished breath sounds bilaterally actually. We did talk about the importance of deep breathing exercises. He is going to look into online pulmonary rehabilitation I did give him Information about that. Therefore, he will continue with current respiratory therapy will follow-up in 6-8 months. If the patient has any issues prior to that he will call for an earlier assessment. Also to note that I did look at the x-ray demonstrating stable findings of the elevated left hemidiaphragm and atelectasis. No acute issues noted. [facility] Medical History (Updated 11/21/23 @ 21:59 by Ferdinand Elkins MD) Limb swelling Thrush, oral Atelectasis Chronic bronchitis Bronchopneumonia Tracheobronchomalacia COPD (chronic obstructive pulmonary disease) AIRAM (obstructive sleep apnea) Chronic rhinitis Family History (Updated 03/25/21 @ 23:03 by Ferdinand Elkins MD) Other HTN (hypertension) Social History Household Members: Spouse Housing: House Do you presently have visiting nurse or other home services: No Alcohol intake: never Patient Tobacco Use Status: Never used Tobacco Advance Directives Date on File: 03/25/21 Current occupational status: retired Review of Systems Const Denies chills, Denies fatigue and Denies night sweats Eyes Denies change in vision ENT Denies change in voice, Reports dizziness, Denies lip swelling, Denies mouth pain, Reports nasal congestion, Reports nasal discharge and Denies tongue swelling Card Denies chest pain, Denies irregular heart rhythm, Denies palpitations and Denies dyspnea on exertion Resp Denies change in phlegm color, Reports chest congestion, Reports cough, Denies hemoptysis, Denies dyspnea on exertion and Denies wheezing GI Denies abdominal pain Reports hematuria, Reports difficulty urinating and Reports urinary hesitancy Musc Denies no additional complaints Neuro Denies Neuro-related abnormal movements, Reports dizziness and Denies focal weakness Psych Denies no additional complaints Endo Denies fatigue and Denies palpitations Gage/Lymph Denies easy bleeding and Denies lymphadenopathy Aller/Immun Denies lip swelling, Denies tongue swelling and Denies wheezing Physical Exam Vital Signs: Last Vital Signs Pulse 63 11/21/23 10:47 Pulse Ox 97 11/21/23 10:47 Oxygen Delivery Method Room Air 11/21/23 10:47 BMI result Body Mass Index 30.3 Const General: alert and tired appearing HEENT General nose exam: Nasal discharge present Eyes Conjunctivae: conjunctival abnormal bilateral pallor Neck Neck: Yes normal visual inspection, Yes full ROM and Yes no lymphadenopathy Chest Chest palpation & inspection: normal inspection of the chest Resp Auscultation: no crackles, no rales, no rhonchi, no wheezes and diminished lung sounds Cardio Rate: regular rate Rhythm: regular rhythm Heart sounds: S1 normal heart sound present and S2 normal heart sound present GI Palpation (GI): Soft to palpation and nontender Auscultation: normal bowel sounds Skin General skin exam: rashes and/or lesions noted Assessment & Plan Assessment & Plan (1) COPD (chronic obstructive pulmonary disease): Code(s): J44.9 - Chronic obstructive pulmonary disease, unspecified Qualifiers: COPD type: chronic bronchitis Chronic bronchitis type: mixed simple and mucopurulent Qualified Code(s): J41.8 - Mixed simple and mucopurulent chronic bronchitis (2) AIRAM (obstructive sleep apnea): Code(s): G47.33 - Obstructive sleep apnea (adult) (pediatric) (3) Bronchopneumonia: Comment: resolved Code(s): J18.0 - Bronchopneumonia, unspecified organism Plan start 3% NaCL nebs BID followed by acapella valve online pulmonary rehab cough medicine Spiriva 2 puff daily, no urinary retention with new meds nebulizer therapy 1-2 times a day F/U 6-8 months Medications: New sodium chloride 3% 4 mL inhalation BID 90 days 720 mL 3RF J44.9 - Chronic obstructive pulmonary disease, unspecified Coding Level of Care Code Est Pt Level 4 (07352) Diagnoses Mixed simple and mucopurulent chronic bronchitis J41.8 COPD type: chronic bronchitis Chronic bronchitis type: mixed simple and mucopurulent AIRAM (obstructive sleep apnea) G47.33 Bronchopneumonia J18.0 Time Spent (min) 17
== END 2023-11-21 11:15 | disposition home or self-care (01) ==
PROVIDERS: PCP Internal Medicine; Visit Provider Hospitalist
DX: J41.8 Mixed simple and mucopurulent chronic bronchitis (principal); G47.33 Obstructive sleep apnea (adult) (pediatric); J18.0 Bronchopneumonia, unspecified organism
CPT/HCPCS: 99214

== ENCOUNTER → 2023-11-21 10:38 | Outpatient (BNVA) | payer MEDICARE, SELFPAY | PROVIDERS: PCP Internal Medicine; Visit Provider Hospitalist | DX: J18.0 Bronchopneumonia, unspecified organism (principal); J41.8 Mixed simple and mucopurulent chronic bronchitis; G47.33 Obstructive sleep apnea (adult) (pediatric) | CPT/HCPCS: 99212 ==

== ENCOUNTER 2024-05-25 10:49 | Outpatient (AMB) | payer MEDICARE, SELFPAY ==
--- NOTE | 2024-05-25 10:54 | A.OFFVIS_ITS ---
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 He did undergo bronchoscopy demonstrating significant tracheobronchomalacia. He has been responding reasonable to that therapy including his respiratory inhalers and the azithromycin Tuesday and Tuesday. The main reason for the azithromycin is for the anti-inflammatory properties that have decreased exacerbations. It also promotility agent decreasing the risk of micro aspirations in to the lung. And less likely to use for the antibiotic antimicrobial component. Usually is hard for him to expectorate. He does have nasal congestion has been rinsing his nose. My feeling is that he is probably singh ving post nasal drip resulting in upper airway cough syndrome. He is using pillows and a wedge pillow to keep him elevated at least 30. Also recently he had to be cardioverted for it tachyarrhythmia. He responded well to that. We did review his chest x-ray that he had last September demonstrating again atelectasis to the left base. We attempt to send a sputum culture. However, it was contaminated. 01/21/2020, He was treated for COPD exacerbation with prednisone antibiotics and he did get better. Unfortunately, then he had to restart a prednisone taper for worsening respiratory symptoms. We did send a sputum culture during the last visit but it was contaminated with saliva. Therefore cannot be sent for culture. He did notice that he had more whitish sputum which was sticky during his last exacerbation but no longer. He feels like is getting back to baseline. He still on the higher dose azithromycin 500 Tuesday. Seems to be tolerating it okay. Will have to do an EKG when he comes and March. Right now he is off prednisone. I did talk about the importance of him going to the hospital with the case his respiratory status gets worsen. 09/28/2022 this is a telehealth visit. The patient recently started developing worsening chest congestion and cough. He was evaluated in the ER where he had a positive COVID test. At the time he was already on prednisone for COPD exacerbation. The patient is also on Eliquis and also on other medications that may interact with Paxlovid. Therefore he was placed on remdesivir home infusion x3 days. He is currently on that. In meantime he is complaining of chest congestion with yellowish phlegm. Moderate severity. The prednisone has been helpful. He is also using his nebulized therapy. Denies any fevers or chills. Overall his cough is a little better which is reassuring. I did review the laboratory data and imaging studies from [facility]. His white counts normal. The patient x-ray demonstrates slight elevation of the left hemithorax but otherwise no acute disease noted which is reassuring. 10/21/2022 the patient is here for a pulmonary health visit. He is now doing better from a respiratory status. He was having to use his nebulizer treatment several times a day because he was having significant coughing chest tightness. He cannot tolerate albuterol due to the fact that he has AFib and very sensitive to the beta agonists. Therefore he was continue to use his anticholinergic therapy. Unfortunately he started developing significant urinary retention. He was evaluated and required a indwelling catheter. Subsequently the indwelling catheter was removed and has been self cathing at home. His respiratory status has been better and therefore has not required his nebulizer medicine. He has also been using Spiriva which is also anticholinergic. The meantime he does complaint of dizziness and lightheadedness along with fatigue. He appeared to be pale in appearance. Initially when he was but in the room his vital signs demonstrated a blood pressure but 150. at the end of the visit we had his blood pressure checked again with orthostatics. Now reading 80/50 and lower when standing. Therefore we had another nurse recheck in confirm. Subsequently I also did orthostatics and again is sitting blood pressure was 90/50 and standing was significantly lower. The patient was symptomatic. Based on the fact that he was having symptomatic hypotension and orthostasis the patient was agreeable to going to the ER. In meantime since he has been having the self cathing he has noticed some minimal degree of bleeding in the last time that he caths himself. Otherwise the catheter itself and not the urine. He does take anticoagulation. He was taken to the ER for further evaluation. 10/13/2023 the patient is here for pulmonary follow-up visit. He has had a very tough Prakash. He started developing worsening respiratory complaints. He did call the office but we had no availability. Went to an urgent care at [facility] he had an x-ray done demonstrating no acute disease. The patient ultimately call the office again I sent him a course of antibiotics. Although he started having wheezing chest tightness and felt like he needed prednisone. Went to an Urgent antigen care ended up getting some prednisone and ever since then he has been getting a little better. For the last 2 nights after completing the prednisone and the antibiotics he has gotten a little bit better. On examination he has crackles bilaterally seems to be have more like a bronchiolitis picture or bronchopneumonia. Therefore, based on the fact that he still has the abnormal physical exam I did send him a course of doxycycline that he would restart if his symptoms would worsen. The patient can also use cough medication at nighttime. 05/25/2024 the patient is here for a pulmonary follow-up visit. He is back to his baseline respiratory symptoms. He continues uses respiratory therapy as prescribed. Sometimes he does have a hard time expectorating. Will try hypertonic saline at this time to see if he is able to use a nebulizer follow up with the Acapella valve to help mucus secretions. 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 He also has a history atrial fibrillation so he is trying to minimize the use of the albuterol. 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 Denies any issues with urinary retention. On examination he does have diminished breath sounds bilaterally actually. We did talk about the importance of deep breathing exercises. He is going to look into online pulmonary rehabilitation. We will go a ahead and start Daliresp in order to treat his chronic bronchitis. [facility] Medical History (Updated 11/21/23 @ 21:59 by Ferdinand Elkins MD) Limb swelling Thrush, oral Atelectasis Chronic bronchitis Bronchopneumonia Tracheobronchomalacia COPD (chronic obstructive pulmonary disease) AIRAM (obstructive sleep apnea) Chronic rhinitis Family History (Updated 03/25/21 @ 23:03 by Ferdinand Elkins MD) Other HTN (hypertension) Social History Household Members: Spouse Housing: House Do you presently have visiting nurse or other home services: No Alcohol intake: never Patient Tobacco Use Status: Never used Tobacco Advance Directives Date on File: 03/25/21 Current occupational status: retired Review of Systems Const Denies chills, Denies fatigue and Denies night sweats Eyes Denies change in vision ENT Denies change in voice, Reports dizziness, Denies lip swelling, Denies mouth pain, Reports nasal congestion, Reports nasal discharge and Denies tongue swelling Card Denies chest pain, Denies irregular heart rhythm, Denies palpitations and Denies dyspnea on exertion Resp Denies change in phlegm color, Reports chest congestion, Reports cough, Denies hemoptysis, Denies dyspnea on exertion and Denies wheezing GI Denies abdominal pain Reports hematuria, Reports difficulty urinating and Reports urinary hesitancy Musc Denies no additional complaints Neuro Denies Neuro-related abnormal movements, Reports dizziness and Denies focal weakness Psych Denies no additional complaints Endo Denies fatigue and Denies palpitations Gage/Lymph Denies easy bleeding and Denies lymphadenopathy Aller/Immun Denies lip swelling, Denies tongue swelling and Denies wheezing Physical Exam Vital Signs: Last Vital Signs Pulse 65 05/25/24 10:56 Pulse Ox 98 05/25/24 10:56 Oxygen Delivery Method Room Air 05/25/24 10:56 BMI result Body Mass Index 31.7 Const General: alert and tired appearing HEENT General nose exam: Nasal discharge present Eyes Conjunctivae: conjunctival abnormal bilateral pallor Neck Neck: Yes normal visual inspection, Yes full ROM and Yes no lymphadenopathy Chest Chest palpation & inspection: normal inspection of the chest Resp Effort & Inspection: normal respiratory effort Auscultation: no crackles, no rales, no rhonchi, no wheezes and diminished lung sounds Cardio Rate: regular rate Rhythm: regular rhythm Heart sounds: S1 normal heart sound present and S2 normal heart sound present GI Palpation (GI): Soft to palpation and nontender Auscultation: normal bowel sounds Skin General skin exam: rashes and/or lesions noted Assessment & Plan Assessment & Plan (1) COPD (chronic obstructive pulmonary disease): Code(s): J44.9 - Chronic obstructive pulmonary disease, unspecified Category: Medical Qualifiers: COPD type: chronic bronchitis Chronic bronchitis type: mixed simple and mucopurulent Qualified Code(s): J41.8 - Mixed simple and mucopurulent chronic bronchitis (2) AIRAM (obstructive sleep apnea): Code(s): G47.33 - Obstructive sleep apnea (adult) (pediatric) Category: Medical (3) Bronchopneumonia: Comment: resolved Code(s): J18.0 - Bronchopneumonia, unspecified organism Category: Medical Plan 3% NaCL nebs BID followed by acapella valve online pulmonary rehab cough medicine Spiriva 2 puff daily, no urinary retention with new meds nebulizer therapy 1-2 times a day start Daliresp 250mcg ->500mcg F/U 4-6 months Medications: New prednisone PO daily; Take 2 tabs daily x 5 days, then 1 tablet daily x 5 days 15 tabs 0RF 10 days roflumilast (Daliresp) 250 mcg PO DAILY 30 tabs 11RF 30 days J44.9 - Chronic obstructive pulmonary disease, unspecified Coding Level of Care Code Est Pt Level 4 (10146) Complex EM visit Add On G2211 Diagnoses Mixed simple and mucopurulent chronic bronchitis J41.8 COPD type: chronic bronchitis Chronic bronchitis type: mixed simple and mucopurulent AIRAM (obstructive sleep apnea) G47.33 Bronchopneumonia J18.0 Time Spent (min) 17
[2024-05-25 10:56] VITALS: PULSE 65; O2SAT 98; BMI 31.7
== END 2024-05-25 11:29 | disposition home or self-care (01) ==
PROVIDERS: PCP Internal Medicine; Visit Provider Hospitalist
DX: J41.8 Mixed simple and mucopurulent chronic bronchitis (principal); G47.33 Obstructive sleep apnea (adult) (pediatric); J18.0 Bronchopneumonia, unspecified organism
CPT/HCPCS: 99214; G2211

== ENCOUNTER → 2024-05-25 10:49 | Outpatient (BNVA) | payer MEDICARE, SELFPAY | PROVIDERS: PCP Internal Medicine; Visit Provider Hospitalist | DX: J41.8 Mixed simple and mucopurulent chronic bronchitis (principal); J18.0 Bronchopneumonia, unspecified organism; G47.33 Obstructive sleep apnea (adult) (pediatric) | CPT/HCPCS: 99212 ==

== ENCOUNTER 2024-11-26 09:39 | Outpatient (AMB) | payer MEDICARE, SELFPAY ==
[2024-11-26 09:39] VITALS: BP 110/56; PULSE 57; O2SAT 97; BMI 32.1
--- NOTE | 2024-11-26 09:39 | MHC.OFFVIS ---
Vital Signs 11/26/24 09:39 Height 6 ft 1 in Weight 243 lb 9.773 oz BMI 32.1 BP 110/56 L Blood Pressure Location Lt brachial Position Sitting Pulse 57 Pulse Source Pulse Oximeter Pulse Oximetry (%) 97 Oxygen Delivery Method Room Air Intake Visit Reasons: Bronchitis Allergies No Known Allergies Allergy (Verified 11/26/24 09:45) HPI Comments Details: The patient is a 79-year-old gentleman with chronic bronchitis and COPD. He did undergo bronchoscopy demonstrating significant tracheobronchomalacia. He has been responding reasonable to that therapy including his respiratory inhalers and the azithromycin Tuesday and Tuesday. The main reason for the azithromycin is for the anti-inflammatory properties that have decreased exacerbations. It also promotility agent decreasing the risk of micro aspirations in to the lung. And less likely to use for the antibiotic antimicrobial component. Usually is hard for him to expectorate. He does have nasal congestion has been rinsing his nose. My feeling is that he is probably having post nasal drip resulting in upper airway cough syndrome. He is using pillows and a wedge pillow to keep him elevated at least 30. Also recently he had to be cardioverted for it tachyarrhythmia. He responded well to that. We did review his chest x-ray that he had last September demonstrating again atelectasis to the left base. We attempt to send a sputum culture. However, it was contaminated. 01/21/2020, He was treated for COPD exacerbation with prednisone antibiotics and he did get better. Unfortunately, then he had to restart a prednisone taper for worsening respiratory symptoms. We did send a sputum culture during the last visit but it was contaminated with saliva. Therefore cannot be sent for culture. He did notice that he had more whitish sputum which was sticky during his last exacerbation but no longer. He feels like is getting back to baseline. He still on the higher dose azithromycin 500 Tuesday. Seems to be tolerating it okay. Will have to do an EKG when he comes and March. Right now he is off prednisone. I did talk about the importance of him going to the hospital with the case his respiratory status gets worsen. 09/28/2022 this is a telehealth visit. The patient recently started developing worsening chest congestion and cough. He was evaluated in the ER where he had a positive COVID test. At the time he was already on prednisone for COPD exacerbation. The patient is also on Eliquis and also on other medications that may interact with Paxlovid. Therefore he was placed on remdesivir home infusion x3 days. He is currently on that. In meantime he is complaining of chest congestion with yellowish phlegm. Moderate severity. The prednisone has been helpful. He is also using his nebulized therapy. Denies any fevers or chills. Overall his cough is a little better which is reassuring. I did review the laboratory data and imaging studies from [facility]. His white counts normal. The patient x-ray demonstrates slight elevation of the left hemithorax but otherwise no acute disease noted which is reassuring. 10/21/2022 the patient is here for a pulmonary health visit. He is now doing better from a respiratory status. He was having to use his nebulizer treatment several times a day because he was having significant coughing chest tightness. He cannot tolerate albuterol due to the fact that he has AFib and very sensitive to the beta agonists. Therefore he was continue to use his anticholinergic therapy. Unfortunately he started developing significant urinary retention. He was evaluated and required a indwelling catheter. Subsequently the indwelling catheter was removed and has been self cathing at home. His respiratory status has been better and therefore has not required his nebulizer medicine. He has also been using Spiriva which is also anticholinergic. The meantime he does complaint of dizziness and lightheadedness along with fatigue. He appeared to be pale in appearance. Initially when he was but in the room his vital signs demonstrated a blood pressure but 150. at the end of the visit we had his blood pressure checked again with orthostatics. Now reading 80/50 and lower when standing. Therefore we had another nurse recheck in confirm. Subsequently I also did orthostatics and again is sitting blood pressure was 90/50 and standing was significantly lower. The patient was symptomatic. Based on the fact that he was having symptomatic hypotension and orthostasis the patient was agreeable to going to the ER. In meantime since he has been having the self cathing he has noticed some minimal degree of bleeding in the last time that he caths himself. Otherwise the catheter itself and not the urine. He does take anticoagulation. He was taken to the ER for further evaluation. 10/13/2023 the patient is here for pulmonary follow-up visit. He has had a very tough August. He started developing worsening respiratory complaints. He did call the office but we had no availability. Went to an urgent care at [place] he had an x-ray done demonstrating no acute disease. The patient ultimately call the office again I sent him a course of antibiotics. Although he started having wheezing chest tightness and felt like he needed prednisone. Went to an Urgent antigen care ended up getting some prednisone and ever since then he has been getting a little better. For the last 2 nights after completing the prednisone and the antibiotics he has gotten a little bit better. On examination he has crackles bilaterally seems to be have more like a bronchiolitis picture or bronchopneumonia. Therefore, based on the fact that he still has the abnormal physical exam I did send him a course of doxycycline that he would restart if his symptoms would worsen. The patient can also use cough medication at nighttime. 05/25/2024 the patient is here for a pulmonary follow-up visit. He is back to his baseline respiratory symptoms. He continues uses respiratory therapy as prescribed. Sometimes he does have a hard time expectorating. Will try hypertonic saline at this time to see if he is able to use a nebulizer follow up with the Acapella valve to help mucus secretions. 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 He also has a history atrial fibrillation so he is trying to minimize the use of the albuterol. 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 Denies any issues with urinary retention. On examination he does have diminished breath sounds bilaterally actually. We did talk about the importance of deep breathing exercises. He is going to look into online pulmonary rehabilitation. We will go a ahead and start Daliresp in order to treat his chronic bronchitis. 11/26/2024 the patient is here for a pulmonary follow-up visit. The patient overall has been feeling well. He is masking now. He has not gotten sick over the winter. He continues to do his breathing exercises per his . She does remind him. He does have to do it because of his atelectasis. In the meantime he continues uses nebulized therapy as prescribed. He did not take the Daliresp because he did not like the side effect profile and ultimately did not need it. [facility] his last chest x-ray was about a year ago demonstrating just persistent atelectasis and chronic elevation of the diaphragm. Patient has gotten all his vaccines. Looks like his Tdap needs to be renewed. He is going to talk to his primary care doctor about that. He will follow-up in a year's time if he has any issues prior to that he will call for an earlier assessment. [facility] Medical History (Updated 11/21/23 @ 21:59 by Ferdinand Elkins MD) Limb swelling Thrush, oral Atelectasis Chronic bronchitis Bronchopneumonia Tracheobronchomalacia COPD (chronic obstructive pulmonary disease) AIRAM (obstructive sleep apnea) Chronic rhinitis Family History (Updated 03/25/21 @ 23:03 by Ferdinand Elkins MD) Other HTN (hypertension) Social History (Updated 11/26/24 @ 09:45 by Marly Hernandez CMA) Household Members: Spouse Housing: House Do you presently have visiting nurse or other home services: No Alcohol intake: never Patient Tobacco Use Status: Former Tobacco user Advance Directives Date on File: 03/25/21 Current occupational status: retired Review of Systems Const Denies chills, Denies fatigue and Denies night sweats Eyes Denies change in vision ENT Denies change in voice, Denies lip swelling, Denies mouth pain, Reports nasal congestion, Reports nasal discharge and Denies tongue swelling Card Denies chest pain, Denies irregular heart rhythm, Denies palpitations and Denies dyspnea on exertion Resp Denies change in phlegm color, Reports cough, Denies hemoptysis, Denies dyspnea on exertion and Denies wheezing GI Denies abdominal pain Reports no additional complaints Musc Denies no additional complaints Neuro Denies Neuro-related abnormal movements and Denies focal weakness Psych Denies no additional complaints Endo Denies fatigue and Denies palpitations Gage/Lymph Denies easy bleeding and Denies lymphadenopathy Aller/Immun Denies lip swelling, Denies tongue swelling and Denies wheezing Physical Exam Vital Signs: Last Vital Signs Pulse 57 11/26/24 09:39 BP 110/56 L 11/26/24 09:39 Pulse Ox 97 11/26/24 09:39 Oxygen Delivery Method Room Air 11/26/24 09:39 BMI result Body Mass Index 32.1 Const General: alert and tired appearing HEENT General nose exam: Nasal discharge present Eyes Conjunctivae: conjunctival abnormal bilateral pallor Neck Neck: Yes normal visual inspection, Yes full ROM and Yes no lymphadenopathy Chest Chest palpation & inspection: normal inspection of the chest Resp Effort & Inspection: normal respiratory effort Auscultation: no crackles, no rales, no rhonchi, no wheezes and diminished lung sounds Cardio Rate: regular rate Rhythm: regular rhythm Heart sounds: S1 normal heart sound present and S2 normal heart sound present GI Palpation (GI): Soft to palpation and nontender Auscultation: normal bowel sounds Skin General skin exam: no rashes or lesions noted Extrem General: Yes no clubbing, cyanosis or edema Assessment & Plan Assessment & Plan (1) COPD (chronic obstructive pulmonary disease): Code(s): J44.9 - Chronic obstructive pulmonary disease, unspecified Category: Medical Qualifiers: COPD type: chronic bronchitis Chronic bronchitis type: mixed simple and mucopurulent Qualified Code(s): J41.8 - Mixed simple and mucopurulent chronic bronchitis (2) AIRAM (obstructive sleep apnea): Code(s): G47.33 - Obstructive sleep apnea (adult) (pediatric) Category: Medical (3) Bronchopneumonia: Comment: resolved Code(s): J18.0 - Bronchopneumonia, unspecified organism Category: Medical Plan 3% NaCL nebs BID followed by acapella valve online pulmonary rehab cough medicine Spiriva 2 puff daily, no urinary retention with new meds nebulizer therapy 1-2 times a day stopped Daliresp 250mcg- did not take it concerned about side effects F/U 12 months Coding Level of Care Code Est Pt Level 4 (28399) Complex EM visit Add On G2211 Diagnoses Mixed simple and mucopurulent chronic bronchitis J41.8 COPD type: chronic bronchitis Chronic bronchitis type: mixed simple and mucopurulent AIRAM (obstructive sleep apnea) G47.33 Bronchopneumonia J18.0 Time Spent (min) 16
--- OUTSIDE RECORDS SUMMARY | 2024-11-26 10:43 | XMS_ITS ---
Author Name [facility] Organization [facility] Address [address] [place] [id number] Care Team Providers Care Insurance Analyst Name Role Phone GENESIS ESCOBEDO Primary Care Provider Unavailabl e Insurance Providers: All historical and current Section Date Range: From patient's date of to the date document was created. This section includes the names of all active insurance providers for the patient. Insurance Provider Type of Coverage Plan Name Start of Policy Coverage End of Policy Coverage Group Number Member ID Insurance Provider's Telephone Number Policy Ann's Name Patient's Relationship to Policy Ann [facility] MEDICARE SUPPLEMEN APRIL MEDEX 2 Sep 26, 2014 [id number] CYNDI PARKS JR [place] APRIL MEDEX 2 Sep 26, 2014 [id number] CYNDI PARKS JR [place] APRIL MEDEX 2 Sep 26, 2014 [id number] CYNDI PARKS JR PATIENT BCBS OF [facility] Sep 26, 2008 [id number] Pilar PARKS SPOUSE [place] MEDICARE SUPPLEMEN APRIL MEDEX 2 Sep 26, 2014 [id number] CYNDI PARKS JR PATIENT [employer] ([id number]) PRESCRIPT ION PHARM ACY Nov 24, 2008 [facility] [id number] Pilar PARKS SPOUSE MEDICARE (WNR) MEDICARE (M) PART B Apr 26, 2010 PART B [id number] CYNDI PARKS JR PATIENT MEDICARE (WNR) MEDICARE (M) PART B Apr 26, 2010 PART B [id number] CYNDI PARKS JR PATIENT MEDICARE (WNR) MEDICARE (M) PART A May 27, 2009 PART A [id number] CYNDI PARKS JR PATIENT MEDICARE (WNR) MEDICARE (M) PART A May 27, 2009 PART A [id number] CYNDI PARKS JR PATIENT Selected Encounter This section includes the information on record at ME for the Encounter. Date/Time Encounter Type Encounter Description Reason Provider Source Oct 25, 2024 08:00 AM OFFICE O/P EST HI 40 MIN DERMATOLOGY ICD-10-CM C44.92 Squamous cell carcinoma of skin, unspecified SANKET CASAREZ [facility] Encounter Template Text not used by ME Assessments - Encounter Diagnoses This section includes the primary and secondary diagnoses documented for the Encounter. Date/Time Primary/Secondary Diagnosis Diagnosis Name Provider Source Oct 25, 2024 08:39 AM PRIMARY Squamous cell carcinoma of skin, unspecified [facility] [place] [facility] Oct 25, 2024 08:39 AM SECONDARY Actinic keratosis SANKET CASAREZ [facility] [place] [facility] Oct 25, 2024 08:39 AM SECONDARY Personal history of other malignant neoplasm of skin [facility] CAS[facility]Z [facility] [place] [facility] Oct 25, 2024 08:39 AM SECONDARY Xerosis cutis [facility]ET CASAREZ [facility] Plan of Treatment: Future Appointments (+ 6 months) and Future Tests (+/- 45 days) The Plan of Treatment section includes future care activities for the patient from all ME treatmentfacilities. This section includes future appointments and future orders which are active, pending or scheduled. Future Appointments This section includes appointments that were scheduled to occur 6 months from the date of the Encounter, up to a maximum of 20 appointments. The data comes from all ME treatment facilities. Appointment Date/Time Appointment Type Appointme nt Facility Name Nov 07, 2024 02:00 PM AMBULATORY - [facility] MEDICIN [facility] [place] [facility] Nov 13, 2024 10:30 AM AMBULATORY - MEDICINE [facility] [place] [facility] Nov 28, 2024 03:00 PM AMBULATORY - REHAB MEDICIN E [facility] [place] [facility] February 06, 2025 07:30 AM [facility] Social History: Smoking Status (Most current) and Tobacco Use (All prior to encounter date) This section includes the most current, and the historical, smoking and tobacco- related health factors from the ME facility where the Encounter took place. Current Smoking Status This section includes the most current smoking, or tobacco-related health factor, from the ME facility where the Encounter took place. Date/Time Current Smoking Status Comment [facility] Sep 06, 2024 09:00 AM VA-TOBACCO USE FOR KRYSTYNA CIGARETTES [facility] Tobacco Use History This section includes a history of the smoking, or tobacco-related health factors, that were collected on or before the date of the Encounter. The data comes from the ME facility where the Encounter took place. Date/Time Smoking Status/Tobac co Use Comment Facility Sep 06, 2024 09:00 AM VA-TOBACCO USE FORMER CIGARETTES [facility] [place] [facility] Sep 05, 2023 10:00 AM VA-TOBACCO FORMER USER [facility] [place] [facility] Sep 05, 2023 10:00 AM VA-TOBACCO QUIT 15 YRS OR MORE [facility] [place] [facility] Sep 08, 2022 09:30 AM VA-TOBACCO FORMER USER [facility] [place] [facility] Sep 08, 2022 09:30 AM VA-TOBACCO QUIT 15 YRS OR MORE [facility] [place] [facility] Sep 08, 2021 10:00 AM VA-TOBACCO FORMER USER [facility] [place] [facility] Sep 08, 2021 10:00 AM VA-TOBACCO QUIT 15 YRS OR MORE [facility] [place] [facility] Sep 09, 2020 11:30 AM VA-TOBACCO FORMER USER [facility] [place] [facility] Sep 09, 2020 11:30 AM VA-TOBACCO QUIT 15 YRS OR MORE [facility] [place] [facility] Sep 08, 2018 02:59 PM VA-TOBACCO FORMER USER [facility] [place] [facility] Sep 08, 2018 02:59 PM VA-TOBACCO QUIT 15 YRS OR MORE [facility] [place] [facility] Sep 08, 2018 02:29 PM VA-TOBACCO NEVER USED [facility] [place] [facility] Aug 30, 2017 07:39 AM QUIT TOBACCO USE > 7 YEARS AGO pt quit 35 yrs ago. [facility] [place] [facility] Aug 28, 2016 08:13 AM QUIT TOBACCO USE > 7 YEARS AGO pt states he stop smoking in 1985. [facility] [place] [facility] Aug 29, 2015 08:16 AM LIFETIME NON-TOBACCO USER [facility] [place] [facility] Aug 29, 2015 08:16 AM QUIT TOBACCO USE > 7 YEARS AGO [facility] [place] [facility] Jul 19, 2008 08:56 AM QUIT TOBACCO USE > 7 YEARS AGO [facility] [place] [facility] Jul 31, 2007 09:51 AM QUIT TOBACCO USE 1-7 YEARS AGO discontinued 1985 [facility] [place] [facility] Jul 31, 2007 09:40 AM QUIT TOBACCO USE > 7 YEARS AGO QUIT 21 YEARS AGO [facility] Encounter Notes: All associated encounter notes This section contains the clinical notes associated to the Encounter. 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 L mormonism, C. L earlobe with A and B revealing SCC requiring Mohs surgery and C 'A moderate lichenoid lymphoid cell infiltrate and extravasated erythrocytes. Note: These changes are non-diagnostic.' He is s/p Mohs x2 to L zygoma and L mormonism 06/28/2024 at [facility]. Reviewed notes in vista. Synopsis 'L mormonism lesion noted to have AJCC T3 (tumor invasion beyond fat) BWH T2b (tumor invasion beyond fat, poor differetiation) SCC and was referred back to rad/onc at [facility] to consider adjuvant radiation.' CC-Rad Onc consult placed 07/14/24 by PCP, it appears appt was scheduled 07/17/24 - do not have notes to review. reports he was seen at [facility] Rad/Onc by Dr. Jenkins - had a PET scan - [repeat] radiation not indicated - due for follow up in December. CC-RadOnc expires 01/13/25. Self-alert placed to renew. denies any other new/changing/bleeding/non-heali ng lesions. REVIEW OF SYSTEMS: Constitutional-neg Skin/Hair/Nails-see HPI Derm Hx: -SCC, L medial zygoma s/p Mohs at [facility] 06/2024: Reviewed notes in vista. Synopsis 'L mormonism lesion noted to have AJCC T3 (tumor invasion beyond fat) BWH T2b (tumor invasion beyond fat, poor differetiation) SCC and was referred back to rad/onc at [facility] to consider adjuvant radiation.' CC-Rad Onc consult placed 07/14/24 by PCP, it appears appt was scheduled 07/17/24 - do not have notes to review. [place] reports he was seen at [facility] Rad/Onc by Dr. Jenkins - had a PET scan - [repeat] radiation not indicated - due for follow up in December. -RadOnc expires 01/13/25. Self-alert placed to renew. -SCC, L mormonism s/p Mohs at [facility] 06/2024 -SCC, L cheek s/p Mohs at [facility] 11/2022 s/p radiation (03/14/23 - 04/28/23) at [facility] RAD ONC r/t perineural invasion -AKs s/p LN2 and 5FU Family Hx: Denies known h/o MM PastMedHx: Reviewed. History of Sun Exposure/Sunburns: Yes Reviewed [facility] RAD ONC Notes, visit 04/28/23. ----SYNOPSIS------ Provider: Dr. Keagan Jenkins Dx: SCC L pre-auric area NM PET CT skull base to mid thighs 02/24/23 (no imaging report to review) History: Mohs 01/24/23 revealed dense lymphocytic infiltrate w/extensive perineural involvement (down to fascia). Small foci of SCC was noted at the deepest section in the neurovascular bundle. It was technically not possible to acheieve deeper sections, thus referred for adjuvant radiotherapy. Tx: 03/14/23 - 04/28/23 Follow up: 12 weeks w/ Rad Onc ---end synopsis--- Active Outpatient Medications (including Supplies): Active Outpatient Medications Status 1) CARBOXYMETHYLCELLULOSE NA 0.5% OPH SOLN INSTILL 1 DROP INTO ACTIVE EACH EYE FOUR TIMES DAILY NEEDED Indication: FOR DRY EYE Active Non-VA Medications Status 1) Non-VA ASPIRIN 325MG EC TAB 325MG BY MOUTH EVERY DAY ACTIVE 2) Non-VA BUDESONIDE INHL,ORAL 1 PUFF BY MOUTH AT BEDTIME ACTIVE 3) Non-VA CHOLECALCIF 50MCG (D3-2,000UNIT) TAB 2000UNIT BY ACTIVE MOUTH EVERY DAY 4) Non-VA CYANOCOBALAMIN 1000MCG TAB 1000MCG BY MOUTH ONCE ACTIVE DAILY 5) Non-VA EZETIMIBE 10MG TAB 10MG BY MOUTH EVERY DAY ACTIVE 6) Non-VA HYDROCHLOROTHIAZIDE 25MG TAB 25MG BY MOUTH EVERY DAY ACTIVE 7) Non-VA LISINOPRIL 40MG TAB 40MG BY MOUTH EVERY DAY ACTIVE 8) Non-VA METFORMIN HCL 1000MG TAB 2000MG BY MOUTH ONCE DAILY ACTIVE 9) Non-VA METOPROLOL SUCCINATE 100MG SA TAB 100MG BY MOUTH ACTIVE EVERY DAY 10) Non-VA NITROGLYCERIN 0.4MG SL TAB 0.4MG UNDER THE TONGUE ACTIVE EVERY 5 MINUTES NEEDED 11) Non-VA ROSUVASTATIN CA 40MG TAB 20MG BY MOUTH AT BEDTIME ACTIVE 12 Total Medications PHYSICAL EXAM: [place] Skintype I General-AxOx3, NAD, pleasant, breathing unlabored, speech clear Focused cutaneous examination, as permitted by the patient, including scalp, face, eyes, ears, neck, hands, fingers Pertinent findings per below: -L pre-auricular area with well healed vertical surgical scar, no abnormal pigmentation noted -L mormonism/medial zygoma area with healing surgical scar -Submental, submandibular, cervical, supraclavicular, parotid, retroauricular, occipital nodes palpated -no gross lymphadenopathy appreciated -Multiple thin erythematous gritty papules and plaques noted to L medial cheek x2, superior nasal dorsum, R nasal ala, R lateral forehead, R mormonism, R medial cheek x2 -generalized xerosis Diagnosis/Plan: #Actinic Keratosis: -Patient education provided on actinic damage and the risk of squamous cell carcinoma. -Treatment options discussed: LN2 vs 5FU vs Imiquimod. - agreeable to cryotherapy with liquid nitrogen to thickened areas today followed by field therapy with 5FU to residual lesions. -Verbal consent obtained. -Liquid nitrogen cryotherapy performed as a destructive method. -Side effects including but not limited to pain, redness, crusting, swelling, blistering, hypopigmentation and scarring discussed. - verbally consents to procedure. -Liquid nitrogen ([place] only able to tolerate 2 cycles x freeze times of 10-30 sec) 3 cycles was advised however x #8 lesions performed with a lateral spread of approx 1 mm peripheral border of the visible lesion. - tolerated procedure well. -Expected results and wound care instructions discussed. ===FOR RESIDUAL LESIONS=== -Proper use of Efudex (fluorouracil) 5% including application of a thin layer to the entire area twice daily for a goal of 4 weeks recommended or until superficial erosion occurs. He reports to have Rx at home. -Discussed application instructions in length. -Wash hands after applications to avoid contact with eyes. -Avoid contact with animals and women. -Risks/benefits/alternatives discussed. -Side effects including but not limited to severe irritation, swelling, redness, crusting, blistering, discomfort discussed. -Educated regarding expected reaction during and after treatment. -Explained that fluorouracil will selectively destroy abnormal cells while leaving the normal skin cells alone. This will result in spotty areas of redness and peeling which sometimes can be interpreted as a allergic reaction to the cream, but is in fact a therapeutic effect of the cream. The inflamed areas will heal up with new skin cells after he finishes the 2 weeks of application. -Discussed at length with that this is the expected reaction of the cream. Explained that the inflammation typically subsides approximately two weeks after topical fluorouracil is discontinued and that it typically takes four to six weeks (two to four weeks of which are active treatment) for the skin to progress through erythema, blistering, necrosis with erosion, and re- epithelialization. -Patient informed that he may stop application for a couple days for any severe inflammatory reaction, which may include bleeding or instense discomfort. (Triamcinolone oint 0.1% 2-4x/day PRN may be prescribed) -Goal of 4 weeks of therapy re-emphasized or until superficial erosion occurs. -Sun protection/avoidance measures stressed. -Patient encouraged to call with any questions or concerns. #Squamous Cell Carcinoma of Skin -SCC, L medial zygoma s/p Mohs at [facility] 06/2024: Reviewed notes in vista. Synopsis 'L mormonism lesion noted to have AJCC T3 (tumor invasion beyond fat) BW T2b (tumor invasion beyond fat, poor differetiation) SCC and was referred back to rad/onc at [facility] to consider adjuvant radiation.' CC-Rad Onc consult placed 07/14/24 by PCP, it appears appt was scheduled 07/17/24 - do not have notes to review. [place] reports he was seen at [facility] Rad/Onc by Dr. Jenkins - had a PET scan - [repeat] radiation not indicated - due for follow up in December. -RadOnc expires 01/13/25. Self-alert placed to renew. -Strict return precautions discussed with . #Personal History of Non-Melanotic Skin Cancer: -No evidence of recurrence at surgical site(s) -Full Body Skin Exam advised at least yearly -Photoprotection discussed -Patient instructed to follow up in clinic for any concerning lesions or changes #Xerosis -Advised liberal emollients RTC 3-6m, sooner PRN * educated to RTC meghan if any new, changing, symptomatic lesions. * Education on sun protection and avoidance strategies was provided. * Differential diagnosis, prescription options and risks/benefits were discussed with the patient, who consented to treatment plan. * consented to photography for documentation if indicated. * A dermatoscope was used during the exam. * NUB = Neoplasm of Uncertain Behavior of Skin * NMSC = Nonmelanoma Skin Cancer * AK = Actinic Keratosis ------TIME ESTIMATION To include but not limied to: -Review of medical records -Time spent with patient including obtaining history, physical exam, shared decision making, procedures and counseling -Post visit documentation; HPI and physical exam findings, clinical researching, medical decision making, medication and lab ordering Total estimated time = 30 min -- Medication Reconciliation: Outpatient: Has the patient been taking medications as documented in the EMLR? YES: The patient has been taking medications as documented in the EMLR. Essential Medication List for Review used to complete this medication reconciliation. INCLUDED IN THIS LIST: Alphabetical list of active outpatient prescriptions dispensed from this [facility] (local) and dispensed from another ME or DoD facility (remote) as well as inpatient orders (local, pending and active), local clinic medications, locally documented non-VA medications, and local prescriptions that have or been discontinued in the past 90 days. - All changes in medications, including all non-VA/Herbal/OTC medications were entered into CPRS. - If there were any medications the patient should no longer take, they were discontinued. - The patient/caregiver was instructed to update this list, discard old lists, and take this list to the next appointment, whether with a VA or non-VA provider. JLV Link Data on this list may not be complete. Please check JLV. Allergies/ADRs (Tool #5) FACILITY ALLERGY/ADR -------- No Remote Allergy/ADR Data available for this patient [facility] [place] [facility] No Known Allergies Med Recon NoGloary (Tool #1) INCLUDED IN THIS LIST: Alphabetical list of active outpatient prescriptions dispensed from this ME (local) and dispensed from another ME or DoD facility (remote) as well as inpatient orders (local pending and active), local clinic medications, locally documented non-VA medications, and local prescriptions that have or been discontinued in the past 90 days. Non-VA Meds Last Documented On: Sep 06, 2024 NOTE The display of VA prescriptions dispensed from another VA or DoD facility (remote) is limited to active outpatient prescription entries matched to National Drug File at the originating site and may not include some items such as investigational drugs, compounds, etc. NOT INCLUDED IN THIS LIST: Medications self-entered by the patient into personal health records (i.e. [employer]) are NOT included in this list. Non-VA medications documented outside this ME, remote inpatient orders (regardless of status) and remote clinic medications are NOT included in this list. The patient and provider must always discuss medications the patient is taking, regardless of where the medication was dispensed or obtained. Non-VA ASPIRIN 325MG EC TAB TAKE ONE TABLET BY MOUTH EVERY DAY Medication prescribed by Non-VA provider. Non-VA BUDESONIDE INHL,ORAL INHALE 1 PUFF BY MOUTH AT BEDTIME Patient wants to buy from Non-VA pharmacy. Medication prescribed by Non-VA provider. OUTPT CARBOXYMETHYLCELLULOSE NA 0.5% OPH SOLN (Status = Active) INSTILL 1 DROP INTO EACH EYE FOUR TIMES DAILY NEEDED FOR DRY EYE Rx# [id number] Last Released: 10/01/24 Qty/Days Supply: Rx Expiration Date: 09/29/25 Refills Remainin Indication: FOR DRY EYE Non-VA CHOLECALCIF 50MCG (D3-2,000UNIT) TAB TAKE ONE TABLET BY MOUTH daily Patient wants to buy from Non-VA pharmacy. Medication prescribed by Non-VA provider. Non-VA CYANOCOBALAMIN 1000MCG TAB TAKE ONE TABLET BY MOUTH ONCE DAILY Patient wants to buy from Non-VA pharmacy. Medication prescribed by Non-VA provider. Non-VA EZETIMIBE 10MG TAB TAKE ONE TABLET BY MOUTH EVERY DAY Medication prescribed by Non-VA provider. Non-VA HYDROCHLOROTHIAZIDE 25MG TAB TAKE ONE TABLET BY MOUTH EVERY DAY Medication prescribed by Non-VA provider. OUTPT IPRATROPIUM BROMIDE 0.02% INH SOLN 2.5ML (Status = ) INHALE 1 AMPULE (2.5 MLS) VIA UPDRAFT FOUR TIMES DAILY NEEDED FOR BREATHING Rx# [id number] Last Released: 09/12/23 Qty/Days Supply: Rx Expiration Date: 09/05/24 Refills Remainin Non-VA LISINOPRIL 40MG TAB TAKE ONE TABLET BY MOUTH EVERY DAY Medication prescribed by Non-VA provider. Non-VA METFORMIN HCL 1000MG TAB TAKE TWO TABLETS BY MOUTH ONCE DAILY Patient wants to buy from Non-VA pharmacy. Medication prescribed by Non-VA provider. Non-VA METOPROLOL SUCCINATE 100MG SA TAB TAKE ONE TABLET BY MOUTH EVERY DAY Medication prescribed by Non-VA provider. Non-VA NITROGLYCERIN 0.4MG SL TAB DISSOLVE ONE TABLET UNDER THE TONGUE EVERY 5 MINUTES NEEDED Medication prescribed by Non-VA provider. Non-VA ROSUVASTATIN CA 40MG TAB TAKE ONE-HALF TABLET BY MOUTH AT BEDTIME Patient wants to buy from Non-ME pharmacy. Medication prescribed by Non-VA provider. SUPPLIES /kody/ JOSEPH CASAREZ DNP, COUNSELING PSYCHOLOGIST-C NURSE PRACTITIONER Signed: 10/25/2024 08:39 JOSEPH CASAREZ [facility]
--- OUTSIDE RECORDS SUMMARY | 2024-11-26 10:43 | XMS_ITS | Clinical Summary ---
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 Waste Collection Worker Name Role Phone Monique Wilson MD Primary Care Provide r Social History Tobacco Use Types Packs/Day Years Used Date Smoking Tobacco: Never Assessed Sex and Gender Information Value Date Recorded Sex Assigned at Not on file Legal Sex Male 10:16 AM EST Gender Identity Not on file Sexual Orientation Not on file Plan of Treatment Health Maintenance Due Date Last Done Comments Pneumococcal Vaccine: 65+ Ye ars (1 of 1 - PCV) 2010 Influenza Vaccine (#1) 2024 Hepatitis B Vaccine Aged Out No longe r eligible based on patient's age to complete this topic Insurance MEDICARE [facility] MEDICARE [facility] Care Teams Solid Waste Collection Worker Relationship Specialty Start Date End Date Monique Wilson MD [address] [place] [phone] PCP - General Internal Medicine 12/26/23
--- OUTSIDE RECORDS SUMMARY | 2024-11-26 10:43 | XMS_ITS | Encounter Summary ---
Author Name [facility] [place] [facility] [place] [facility] [place] Address [address] [place] [id number] Care Team Providers Care Denture Finisher Name Role Phone GENESIS ESCOBEDO Primary Care [...] Ann's Name Patient's Relationship to Policy Ann [facility] MEDICARE SUPPLEMEN APRIL MEDEX 2 Sep 26, 2014 [id number] CYNDI PARKS JR PATIENT [facility] MEDICARE SUPPLEMEN APRIL MEDEX 2 Sep 26, 2014 [id number] [phone] CYNDI PARKS JR PATIENT [place] MED[place] SUPPLEMEN APRIL MEDEX 2 Sep 26, 2014 [id number] [phone] CYNDI PARKS JR PATIENT BCBS OF [facility] Sep 26, 2008 [id number] Pilar PARKS SPOUSE [place] MEDICARE SUPPLEMEN APRIL MEDEX 2 Sep 26, 2014 [id number] CYNDI PARKS JR PATIENT [employer] ([id number]) [facility] ACY Nov 24, 2008 [facility] [id number] [phone] Pilar PARKS SPOUSE MEDICARE (WNR) MEDICARE (M) PART B Apr 26, 2010 PART B [id number] [phone] CYNDI PARKS JR PATIENT MEDICARE (WNR) MEDICARE (M) PART B Apr 26, 2010 PART B [id number] CYNDI PARKS JR PATIENT MEDICARE (WNR) MEDICARE (M) PART A May 27, 2009 PART A [id number] CYNDI PARKS JR PATIENT MEDICARE (WNR) MEDICARE (M) PART A May 27, 2009 PART A [id number] CYNDI PARKS JR PATIENT Selected Encounter This section includes the information on record at [place] for the Encounter. Date/Time Encounter Type Encounter Description Reason Provider Source February 16, 2024 08:30 AM OFFICE O/P EST MOD 30 MIN DERMATOLOGY ICD-10-CM Z85.828 Personal history of other malignant neoplasm of skin [facility] CASAREZ [facility] Encounter Template Text not used by [place] Assessments - Encounter Diagnoses This section includes the primary and secondary diagnoses documented for the Encounter. Date/Time Primary/Secondary Diagnosis Diagnosis Name Provider Source Mar 10, 2024 07:22 AM PRIMARY Personal history of other malignant neoplasm of skin [facility] Mar 10, 2024 07:22 AM SECONDARY Actinic keratosis [facility] [place] [facility] Mar 10, 2024 07:22 AM SECONDARY Neoplasm of uncertain behavior of skin [facility] CASAREZ [facility] Plan of Treatment: Future Appointments (+ 6 months) and Future Tests (+/- 45 days) The Plan of Treatment section includes future care activities for the patient from all [place] treatmentfacilities. This section includes future appointments and future orders which are active, pending or scheduled. Future Appointments This section includes appointments that were scheduled to occur 6 months from the date of the Encounter, up to a maximum of 20 appointments. The data comes from all [place] treatment facilities. Appointment Date/Time Appointment Type Appointme nt Facility Name May 31, 2024 09:30 AM AMBULATORY - MEDICINE [place] [facility] [place] [facility] Jun 28, 2024 07:30 AM AMBULATORY - MEDICINE [place] [facility] [place] [facility] Jul 17, 2024 09:00 AM AMBULATORY - MEDICINE [place] [facility] [place] [facility] Social History: Smoking Status (Most current) and Tobacco Use (All prior to encounter date) This section includes the most current, and the historical, smoking and tobacco- related health factors from the [place] facility where the Encounter took place. Current Smoking Status This section includes the most current smoking, or tobacco-related health factor, from the [place] facility where the Encounter took place. Date/Time Current Smoking Status Comment [facility] Sep 05, 2023 10:00 AM VA-TOBACCO FORMER USER IN [facility] [place] [facility] Tobacco Use History This section includes a history of the smoking, or tobacco-related health factors, that were collected on or before the date of the Encounter. The data comes from the [place] facility where the Encounter took place. Date/Time Smoking Status/Tobac co Use Comment [facility] Sep 05, 2023 10:00 AM VA-TOBACCO QUIT 15 YRS OR MORE [facility] [place] [facility] Sep 08, 2022 09:30 AM VA-TOBACCO FORMER USER [facility] [place] [facility] Sep 08, 2022 09:30 AM VA-TOBACCO QUIT 15 YRS OR MORE [facility] [place] [facility] Sep 08, 2021 10:00 AM VA-TOBACCO FORMER USER [facility] [place] [facility] Sep 08, 2021 10:00 AM VA-TOBACCO QUIT 15 YRS OR MORE [facility] [place] [facility] Sep 09, 2020 11:30 AM VA-TOBACCO FORMER USER [facility] [place] [facility] Sep 09, 2020 11:30 AM VA-TOBACCO QUIT 15 YRS OR MORE [facility] [place] [facility] Sep 08, 2018 02:59 PM VA-TOBACCO FORMER USER [facility] [place] [facility] Sep 08, 2018 02:59 PM VA-TOBACCO QUIT 15 YRS OR MORE IN [facility] [place] [facility] Sep 08, 2018 02:29 PM VA-TOBACCO NEVER USED [facility] Aug 30, 2017 07:39 AM QUIT TOBACCO USE > 7 YEARS AGO pt quit 35 yrs ago. [facility] [place] [facility] Aug 28, 2016 08:13 AM QUIT TOBACCO USE > 7 YEARS AGO pt states he stop smoking in 1985. [facility] [place] [facility] Aug 29, 2015 08:16 AM LIFETIME NON-TOBACCO USER [facility] Aug 29, 2015 08:16 AM QUIT TOBACCO USE > 7 YEARS AGO [facility] Jul 19, 2008 08:56 AM QUIT TOBACCO USE > 7 YEARS AGO [facility] Jul 31, 2007 09:51 AM QUIT TOBACCO USE 1-7 YEARS AGO discontinued 1985 [facility] Jul 31, 2007 09:40 AM QUIT TOBACCO USE > 7 YEARS AGO QUIT [facility] Encounter Notes: All associated encounter notes This section contains the clinical notes associated to the Encounter. Date/Time Encounter Note(s) Provider Source February 16, 2024 08:32 AM DERMATOLOGY OUTPATIENT NOTE: LOCAL TITLE: DERMATOLOGY CLINIC NOTE STANDARD TITLE: DERMATOLOGY OUTPATIENT NOTE DATE OF NOTE: FEBRUARY 16, 2024@08:32 ENTRY DATE: FEBRUARY 16, 2024@08:32:31 AUTHOR: JOSEPH CASAREZ EXP COSIGNER: URGENCY: STATUS: COMPLETED FEBRUARY 16, 2024 CYNDI PARKS JR Apr 78 PATIENT PHONE - Patient here for FOLLOW UP CHIEF COMPLAINT: h/o invasive SCC, AKs HPI: Reviewed records from last Dermatology visit: 11/17/23; AKs s/p LN2 f/b 5FU to face/scalp/ears Reports to have used the 5FU cream to bilateral sides of face with a robust response. States he also used the 5FU cream on the left side of nasal tip for a few days, had robust response, then stopped and it has been scabbed over since. denies any other new/changing/bleeding/non-heali ng lesions. REVIEW OF SYSTEMS: Constitutional-neg Skin/Hair/Nails-see HPI Derm Hx: -SCC, L cheek s/p Mohs at [place] 11/2022 s/p radiation (03/14/23 - 04/28/23) at [facility] RAD ONC r/t perineual invasion -AKs s/p LN2 Family Hx: Denies known h/o MM PastMedHx: Reviewed. History of Sun Exposure/Sunburns: Yes Reviewed [facility] ON[facility] Notes, visit 04/28/23. ----SYNOPSIS------ Provider: [...] CARBOXYMETHYLCELLULOSE NA 0.5% OPH SOLN INSTILL 1 ACTIVE DROP INTO EACH EYE FOUR TIMES DAILY NEEDED FOR DRY EYE 2) IPRATROPIUM BROMIDE 0.02% INH SOLN 2.5ML INHALE 1 ACTIVE AMPULE (2.5 MLS) VIA UPDRAFT FOUR TIMES DAILY NEEDED FOR BREATHING Active Non-VA Medications Status 1) Non-VA ASPIRIN 325MG EC TAB 325MG BY MOUTH EVERY DAY ACTIVE 2) Non-VA BUDESONIDE INHL,ORAL 1 PUFF BY MOUTH AT ACTIVE BEDTIME 3) Non-VA CHOLECALCIF 50MCG (D3-2,000UNIT) TAB 2000UNIT ACTIVE BY MOUTH EVERY DAY 4) Non-VA CYANOCOBALAMIN 1000MCG TAB 1000MCG BY MOUTH ACTIVE ONCE DAILY 5) Non-VA EZETIMIBE 10MG TAB 10MG BY MOUTH EVERY DAY ACTIVE 6) Non-VA HYDROCHLOROTHIAZIDE 25MG TAB 25MG BY MOUTH ACTIVE EVERY DAY 7) Non-VA LISINOPRIL 40MG TAB 40MG BY MOUTH EVERY DAY ACTIVE 8) Non-VA METFORMIN HCL 1000MG TAB 2000MG BY MOUTH ONCE ACTIVE DAILY 9) Non-VA METOPROLOL SUCCINATE 100MG SA TAB 100MG BY ACTIVE MOUTH EVERY DAY 10) Non-VA NITROGLYCERIN 0.4MG SL TAB 0.4MG UNDER THE ACTIVE TONGUE EVERY 5 MINUTES NEEDED 11) Non-VA ROSUVASTATIN CA 40MG TAB 20MG BY MOUTH AT ACTIVE BEDTIME 13 Total Medications PHYSICAL EXAM: [place] Skintype I-II General-AxOx3, NAD, pleasant, breathing unlabored, speech clear Focused cutaneous examination, as permitted by the patient (kept on T-shirt, pants, socks, shoes), including scalp, face, eyes, ears, neck, lower arms, hands, fingers Pertinent findings per below: -L pre-auricular area with well healed vertical surgical scar, no abnormal pigmentation noted -Multiple thin erythematous gritty papules and plaques noted to, L superior helix, L hinduism and zygoma, R pre-auricular area, bilat dorsal hands -L nasal tip with a 6mm heme crusted papule with rolled border Diagnosis/Plan: #Personal History of Non-Melanotic Skin Cancer: -No evidence of recurrence at surgical site -Full Body Skin Exam advised at least yearly -Photoprotection discussed -Patient instructed to follow up in clinic for any concerning lesions or changes #Actinic Keratosis: -Patient education provided on actinic damage and the risk of squamous cell carcinoma. -Treatment options discussed: LN2 vs 5FU vs Imiquimod vs Bx vs PDT -He declines cryotherapy spot treatment and agrees to use 5FU at home for residual lesions. Declines need for refill. -Proper use of Efudex (fluorouracil) 5% including application of a thin layer to the entire area twice daily for a goal of 4 weeks recommended or until superficial erosion occurs. -Discussed application instructions in length. -Wash hands after applications to avoid contact with eyes. -Risks/benefits/alternatives discussed. -Side effects including but not limited to severe irritation, swelling, redness, crusting discussed. -Educated regarding expected reaction during and [...] to call with any questions or concerns. #Neoplasm of Uncertain Behavior of Skin -Location: L nasal tip -DDx: BCC vs NMSC -Discussed concern for malignancy at length with . -Treatment options discussed: LN2 vs 5FU vs Imiquimod vs Bx vs PDT -He declines all options except is agreeable to use 5FU at home -Proper use of Efudex (fluorouracil) 5% including application of a thin layer to the entire area twice daily for a goal of 4 weeks recommended or until superficial erosion occurs. -Discussed application instructions in length. -Wash hands after applications to avoid contact with eyes. -Risks/benefits/alternatives discussed. -Side effects including but not limited to severe irritation, swelling, redness, crusting discussed. -Educated regarding expected reaction during and [...] to call with any questions or concerns. RTC 3-6m, sooner PRN * educated to [...] = Neoplasm of Uncertain Behavior of Skin ------TIME ESTIMATION To include but not limied [...] this VA (local) and dispensed from another VA or DoD facility (remote) as well as [...] Remote Allergy/ADR Data available for this patient [place] [facility] [place] [facility] No Known Allergies Med Recon NoGlossary (Tool #1) INCLUDED IN THIS LIST: Alphabetical list of active outpatient prescriptions dispensed from this VA (local) and dispensed from another VA or DoD facility (remote) as well as inpatient orders (local pending and active), local clinic medications, locally documented non-VA medications, and local prescriptions that have or been discontinued in the past 90 days. Non-VA Meds Last Documented On: Sep 05, 2023 NOTE The display of VA prescriptions dispensed from another VA or DoD facility (remote) is limited to active outpatient prescription entries matched to National Drug File at the originating site and may not include some items such as investigational drugs, compounds, etc. NOT INCLUDED IN THIS LIST: Medications self-entered by the patient into personal health records (i.e. [employer] [employer]) are NOT included in this list. Non-VA medications documented outside this [place], remote inpatient orders (regardless of status) and [...] TIMES DAILY NEEDED FOR DRY EYE Rx# [id number] Last Released: 07/18/23 Qty/Days Supply: Rx Expiration Date: 07/13/24 Refills Remainin Indication: FOR DRY EYE Non-VA CHOLECALCIF 50MCG (D3-2,000UNIT) TAB TAKE ONE TABLET BY MOUTH DAILY Patient wants to buy from Non-VA [...] BROMIDE 0.02% INH SOLN 2.5ML (Status = Active) INHALE 1 AMPULE (2.5 MLS) VIA UPDRAFT FOUR TIMES DAILY NEEDED FOR BREATHING Rx# [id number] Last Released: 09/12/23 Qty/Days Supply: Rx Expiration [...] Patient wants to buy from Non-VA pharmacy. SUPPLIES /kody/ JOSEPH CASAREZ DNP, LETTUCE CUTTER-C NURSE PRACTITIONER Signed: 02/16/2024 12:27 JOSEPH CASAREZ [facility] [place] [facility]
--- OUTSIDE RECORDS SUMMARY | 2024-11-26 10:43 | XMS_ITS | Encounter Summary ---
Author Name [facility] [place] Address [address] [place] [id number] Care Team Providers Care Emergency Preparedness Manager Name Role Phone GENESIS ESCOBEDO Primary Care [...] Ann's Name Patient's Relationship to Policy Ann [facility] MEDICARE SUPPLEMEN APRIL MEDEX 2 Sep 26, 2014 [id number] CYNDI PARKS JR PATIENT [facility] MEDICARE SUPPLEMEN APRIL MEDEX 2 Sep 26, 2014 [id number] [phone] CYNDI PARKS JR PATIENT [facility] MEDICARE SUPPLEMEN APRIL MEDEX 2 Sep 26, 2014 [id number] CYNDI PARKS JR PATIENT BCBS OF [facility] DANIEL AVALOS [facility] OF Sep 26, 2008 [id number] Pilar PARKS SPOUSE [place] OF [place] ([place]ARD[place] MEDICARE SUPPLEMEN APRIL MEDEX 2 Sep 26, 2014 [id number] [phone] CYNDI PARKS JR PATIENT [employer] S[facility] ([id number]) PRESCRIPT ION PHARM ACY Nov 24, 2008 [facility] [id number] [phone] Pilar PARKS SPOUSE MEDICARE (WNR) MEDICARE (M) PART B Apr 26, 2010 PART B [id number] CYNDI PARKS JR PATIENT MEDICARE (WNR) MEDICARE (M) PART B Apr 26, 2010 PART B [id number] CYNDI PARKS JR PATIENT MEDICARE (WNR) MEDICARE (M) PART A May 27, 2009 PART A [id number] CYNDI PARKS JR PATIENT MEDICARE (WNR) MEDICARE (M) PART A May 27, 2009 PART A [id number] CYNDI PARKS JR PATIENT Selected Encounter This section includes the information on record at [place] for the Encounter. Date/Time Encounter Type Encounter Description Reason Provider Source February 10, 2024 11:30 AM INTRM OPH EXAM EST PATIENT OPTOMETRY ICD-10-CM H40.013 Open angle with borderline findings, low risk, bilateral JACKELIN MORRIS Encounter Template Text not used by [place] Assessments - Encounter Diagnoses This section includes the primary and secondary diagnoses documented for the Encounter. Date/Time Primary/Secondary Diagnosis Diagnosis Name Provider Source Mar 12, 2024 08:03 AM PRIMARY Open angle with borderline findings, low risk, bilateral RICO MORRIS [facility] Mar 12, 2024 08:03 AM SECONDARY Combined forms of age-related cataract, bilateral [facility] MORRIS [facility] Mar 12, 2024 08:03 AM SECONDARY Type 2 diabetes mellitus without complications RICO MORRIS [facility] Plan of Treatment: Future Appointments (+ 6 months) and Future Tests (+/- 45 days) The Plan of Treatment section includes future care activities for the patient from all [place] treatmentfacilities. This section includes future appointments and future orders which are active, pending or scheduled. Future Appointments This section includes appointments that were scheduled to occur 6 months from the date of the Encounter, up to a maximum of 20 appointments. The data comes from all [place] treatment facilities. Appointment Date/Time Appointment Type Appointme nt Facility Name February 16, 2024 08:30 AM AMBULATORY - MEDICINE [place] [facility] [place] [facility] May 31, 2024 09:30 AM AMBULATORY - MEDICINE [place] [facility] [place] [facility] Jun 28, 2024 07:30 AM AMBULATORY - MEDICINE [place] [facility] [place] [facility] Jul 17, 2024 09:00 AM AMBULATORY - MEDICINE [place] [facility] [place] [facility] Social History: Smoking Status (Most current) and Tobacco Use (All prior to encounter date) This section includes the most current, and the historical, smoking and tobacco- related health factors from the VA facility where the Encounter took place. Current Smoking Status This section includes the most current smoking, or tobacco-related health factor, from the [place] facility where the Encounter took place. Date/Time Current Smoking Status Comment [facility] Sep 05, 2023 10:00 AM VA-TOBACCO QUIT 15 YRS OR MORE [place] [facility] [place] [facility] Tobacco Use History This section includes a history of the smoking, or tobacco-related health factors, that were collected on or before the date of the Encounter. The data comes from the [place] facility where the Encounter took place. Date/Time Smoking Status/Tobac co Use Comment [facility] Sep 05, 2023 10:00 AM VA-TOBACCO QUIT 15 YRS OR MORE [facility] [place] [facility] Sep 08, 2022 09:30 AM VA-TOBACCO FORMER USER [facility] [place] [facility] Sep 08, 2022 09:30 AM VA-TOBACCO QUIT 15 YRS OR MORE [facility] [place] [facility] Sep 08, 2021 10:00 AM VA-TOBACCO FORMER USER [facility] [place] [facility] Sep 08, 2021 10:00 AM VA-TOBACCO QUIT 15 YRS OR MORE [facility] [place] [facility] Sep 09, 2020 11:30 AM VA-TOBACCO FORMER USER [facility] [place] [facility] Sep 09, 2020 11:30 AM VA-TOBACCO QUIT 15 YRS OR MORE [facility] [place] [facility] Sep 08, 2018 02:59 PM VA-TOBACCO FOR[facility] Sep 08, 2018 02:59 PM [facility]BACCO QUIT [facility] YRS OR [facility] Sep 08, 2018 02:29 PM VA-TOBACCO NEVER USED [facility] Aug 30, 2017 07:39 AM QUIT TOBACCO USE > 7 YEARS AGO pt quit 35 yrs ago. [facility] Aug 28, 2016 08:13 AM QUIT TOBACCO USE > 7 YEARS AGO pt states he stop smoking in 1985. [facility] Aug 29, 2015 08:16 AM LIFETIME NON-TOBACCO USER [facility] Aug 29, 2015 08:16 AM QUIT TOBACCO USE > 7 YEARS AGO [facility] Jul 19, 2008 08:56 AM QUIT TOBACCO USE > 7 YEARS AGO [facility] Jul 31, 2007 09:51 AM QUIT TOBACCO USE 1-7 YEARS AGO [facility] Jul 31, 2007 09:40 AM QUIT TOBACCO USE > 7 YEARS AGO QUIT 21 YEARS AGO [facility] Encounter Notes: All associated encounter notes This section contains the clinical notes associated to the Encounter. Date/Time Encounter Note(s) Provider Source February 10, 2024 11:35 AM OPTOMETRY NOTE: LOCAL TITLE: OPTOMETRY NOTE(T) STANDARD TITLE: OPTOMETRY NOTE DATE OF NOTE: FEBRUARY 10, 2024@11:35 ENTRY DATE: FEBRUARY 10, 2024@11:35:33 AUTHOR: JACKELIN MORRIS COSIGNER: URGENCY: STATUS: COMPLETED Active Problems: Active Problem Anemia (SCT [id number]) D64.9, Onset 09/05/2023 GENESIS ESCOBEDO Raised TSH level R79.89, Onset 00/0 09/08/2021 GENESIS ESCOBEDO Vitamin D deficiency R69., Onset 00 09/07/2019 GENESIS ESCOBEDO DM - Diabetes mellitus R69., Onset 08/28/2016 GENESIS ESCOBEDO Asbestosis J98.4 08/29/2015 GENESIS ESCOBEDO Impaired fasting glucose R73.01 08/29/2015 GENESIS ESCOBEDO Cataract, Nuclear Sclerosis 366.16 01/07/2014 JACKELIN MORRIS Hearing Loss, Partial 389.9, Onset 07/19/2008 GENESIS ESCOBEDO Asbestosis * (ICD-9-CM 501.) 501., 07/31/2007 GENESIS ESCOBEDO Coronary Artery Disease 414.9, Onse 07/31/2007 GENESIS ESCOBEDO Hyperlipidemia 272.4, Onset 00/2 07/31/2007 GENESIS ESCOBEDO Essential hypertension 401.9, Onset 07/31/2007 GENESIS ESCOBEDO Personal History of Tobacco Use V15 07/31/2007 GENESIS ESCOBEDO Medications (VA): Active Outpatient Medications (including Supplies): Active Outpatient [...] MOUTH AT ACTIVE BEDTIME 13 Total Medications Allergies: Patient has answered NKA S: 78-year-old male is in for 6-month pressure check exam without specific complaints. He had optic nerve OCT earlier today which is stable from prior scans. He also has a history of diabetes with larger asymmetric cupping which has Remained stable over the years. He denies any eye injury or disease since his last exam. He wears PAL and sunglasses secondary to glare sensitivity. AIDEN: 07/13/2030 (-) Pain: (-) VIDES: (-) Diplopia: (-) Flashes: (-) Floaters: (-) Amaurosis Fugax/Tia's: (-) Eye Injury: (-) Eye Surgery: (-) TBI Last HbA1c: 09/01/2023 6.5% O: Visual acuity with current correction was 20/25+ OD and 20/20 OS. Pupils were equal and round and reactive to light with no afferent defect. Extraocular muscles were intact and facial confrontation sierra were full. Lids and lashes were clear both eyes with dermatochalasis. Corneas and conjunctiva were clear both eyes. Anterior chambers were deep clear and quiet with open angles. Iris was flat both eyes without neovascularization. Grade 1 to nuclear sclerotic cataracts and grade 2 cortical cataracts were seen OU. Current Rx with last BCVA: OD: -0.75 -0.50 x097 20/20 OS: -1.50 -0.75 x083 20/20 Add: +2.50 Intraocular pressures at 11:40 AM were 14 mmHg OU. Previous pachymetry: OD: 556 OS: 550 Fundi reviewed with 90 diopter lens through nondilated pupils. Vitreous was clear OU. Approximately 65% horizontal and vertical cupping was seen OU with healthy rims and margins and no notches, hemorrhages, or neovascularization. Normal pigmentary architecture of the macula was seen without lipid or edema. A two third artery to vein ratio was seen OU. Retinal peripheries were intact in all quadrants OU. No diabetic retinopathy was seen OU. A: 1) Diabetes mellitus without retinopathy or macular edema. Pt urged to maintain tight control of blood sugar and regular appointments with managing physician. 2) Combined cataracts OU, not visually significant. Monitor. 3) Glaucoma suspect. No PDS or PXE. No family history. Pressures are normotensive. Moderate cupping with large optic nerves. Likely physiological. Low risk for progression. Patient will return in 6 months for repeat imaging. 4) Refractive error/presbyopia. Updated SRx today to be filled as PAL clear and sun. P: The patient will return in 9 months or sooner if any problems arise. Dilated fundus exam at that time. [place] Education: After discussion and answering all 's questions, [place] demonstrated and verbalized understanding of diagnosis and treatment. Yes [x] No [ ] Patient Education: Diabetes: Patient was educated regarding diabetes and related ocular complications including retinopathy and cataract formation as well as other related systemic complications. The importance of good blood sugar control, blood sugar testing as recommended by their PCP and the importance of timely follow up were all emphasized. Glaucoma: Patient was educated regarding glaucoma/glaucoma suspect as well as the natural history of this diagnosis including prognosis. Stress importance of compliance and persistency with glaucoma medication when prescribed, timely follow up as well as the role of ancillary testing. Exclusion criteria for ancillary testing include significantly reduced acuity, mental status changes affecting the patient's ability to attend to the test or other physical limitations that would prohibit the patient's ability to participate in testing. Medication Reconciliation: Outpatient: Has the patient been [...] whether with a VA or non-VA provider. /kody/ JACKELIN MORRIS STAFF POWER HAMMER OPERATOR Signed: 02/10/2024 12:17 JACKELIN MORRIS [place] [facility]
--- OUTSIDE RECORDS SUMMARY | 2024-11-26 10:43 | XMS_ITS | Encounter Summary ---
Author Name [facility] [place] [facility] [place] Organization [place] Address [address] [place] [address] Care Team Providers Care Sap Treasury Consultant Name Role Phone GENESIS ESCOBEDO Primary Care [...] Ann's Name Patient's Relationship to Policy Ann [facility] MEDICARE SUPPLEMEN APRIL MEDEX 2 Sep 26, 2014 [id number] CYNDI PARKS JR PATIENT [facility] MEDICARE SUPPLEMEN APRIL MEDEX 2 Sep 26, 2014 [id number] CYNDI PARKS JR PATIENT [facility] MEDICARE SUPPLEMEN APRIL MEDEX 2 Sep 26, 2014 [id number] CYNDI PARKS JR PATIENT BCBS OF [facility] Sep 26, 2008 [id number] Pilar PARKS SPOUSE BCBS OF [place] (BLUECARD) MEDICARE SUPPLEMEN APRIL MEDEX 2 Sep 26, 2014 [id number] CYNDI PARKS JR PATIENT [employer] ([id number]) PRESCRIPT ION PHARM ACY Nov 24, 2008 [facility] [id number] [phone] Pilar PARKS SPOUSE MEDICARE (WNR) MEDICARE (M) PART B Apr 26, 2010 PART B [id number] 06 CYNDI PARKS JR PATIENT MEDICARE (WNR) MEDICARE (M) PART B Apr 26, 2010 PART B [id number] 06 CYNDI PARKS JR PATIENT MEDICARE (WNR) MEDICARE (M) PART A May 27, 2009 PART A [id number] 06 CYNDI PARKS JR PATIENT MEDICARE (WNR) MEDICARE (M) PART A May 27, 2009 PART A [id number] [phone] CYNDI PARKS JR PATIENT Selected Encounter This section includes the information on record at [place] for the Encounter. Date/Time Encounter Type Encounter Description Reason Provider Source Nov 07, 2024 02:00 PM HEARING AID XM&SLCTN [facility] AUDIOLOGY ICD-10-CM H90.3 Sensorineural hearing loss, bilateral CAMINITI,NILAY E IHE Encounter Template Text not used by [place] Assessments - Encounter Diagnoses This section includes the primary and secondary diagnoses documented for the Encounter. Date/Time Primary/Secondary Diagnosis Diagnosis Name Provider Source Nov 07, 2024 02:50 PM PRIMARY Sensorineural hearing loss, bilateral CAMINITI,NILAY E [facility] [place] [facility] Nov 07, 2024 02:50 PM SECONDARY Tinnitus, bilateral CAMINITI,[facility] E [facility] [place] [facility] Plan of Treatment: Future Appointments (+ 6 [...] Appointment Type Appointme nt Facility Name Nov 13, 2024 10:30 AM AMBULATORY - MEDICINE [facility] [place] [facility] Nov 28, 2024 03:00 PM AMBULATORY - REHAB MEDICIN E [facility] [place] [facility] February 06, 2025 07:30 AM AMBULATORY - MEDICINE [place] [facility] [place] [facility] Social History: Smoking Status (Most current) and [...] took place. Date/Time Current Smoking Status Comment [facility] Sep 06, 2024 09:00 AM VA-TOBACCO USE FOR KRYSTYNA CIGARETTES [place] [facility] [place] [facility] Tobacco Use History This section includes a history of the smoking, or tobacco-related health factors, that were collected on or before the date of the Encounter. The data comes from the [place] facility where the Encounter took place. Date/Time Smoking Status/Tobac co Use Comment [facility] Sep 06, 2024 09:00 AM VA-TOBACCO USE FORMER CIGARETTES [facility] [place] [facility] Sep 05, 2023 10:00 AM VA-TOBACCO FORMER USER [facility] [place] [facility] Sep 05, 2023 10:00 AM VA-TOBACCO QUIT 15 YRS OR MORE [facility] [place] [facility] Sep 08, 2022 09:30 AM VA-TOBACCO FORMER USER [facility] [place] [facility] Sep 08, 2022 09:30 AM VA-TOBACCO QUIT 15 YRS OR MORE [facility] [place] [facility] Sep 08, 2021 10:00 AM VA-TOBACCO FORMER USER [facility] [place] [facility] Sep 08, 2021 10:00 AM VA-TOBACCO QUIT 15 YRS OR MORE [facility] [place] [facility] Sep 09, 2020 11:30 AM VA-TOBACCO FORMER USER [facility] [place] [facility] Sep 09, 2020 11:30 AM VA-TOBACCO QUIT 15 YRS OR MORE [facility] [place] [facility] Sep 08, 2018 02:59 PM VA-TOBACCO FOR[facility]ER [facility] Sep 08, 2018 02:59 PM VA-TOBACCO QUIT 15 YRS OR MORE [facility] Sep 08, 2018 02:29 PM [facility]-TOBACCO [facility] USED [facility] Aug 30, 2017 07:39 AM QUIT TOBACCO USE > 7 YEARS AGO pt quit 35 yrs ago. [facility] Aug 28, 2016 08:13 AM QUIT TOBACCO USE > 7 YEARS AGO pt states he stop smoking in 1985. [facility] Aug 29, 2015 08:16 AM LIFETIME NON-TOBACCO USER [facility] Aug 29, 2015 08:16 AM QUIT TOBACCO USE > 7 YEARS AGO [facility] Jul 19, 2008 08:56 AM QUIT TOBACCO USE > 7 YEARS AGO [facility] Jul 31, 2007 09:51 AM QUIT TOBACCO USE 1-7 YEARS AGO discontinued 1985 [facility] Jul 31, 2007 09:40 AM QUIT TOBACCO USE > 7 YEARS AGO QUIT 21 YEARS AGO [facility] Encounter Notes: All associated encounter notes This section contains the clinical notes associated to the Encounter. Date/Time Encounter Note(s) Provider Source Nov 07, 2024 12:55 PM AUDIOLOGY E & M NO TE: [facility] TITLE: AUDIOLOGY CLINIC STANDARD TITLE: AUDIOLOGY E & M NOTE DATE OF NOTE: NOV 07, 2024@12:55 ENTRY DATE: NOV 07, 2024@12:55:11 AUTHOR: NILAY VIERA COSIGNER: URGENCY: STATUS: COMPLETED AUDIOLOGY CLINIC Has ADDENDA [place] was scheduled for an HAC on 11-07-24. He reports he feels his word recognition has declined and he has feedback and discomfort (left aid). He has Omari ITCs issued in 2021. Hearing re-evaluation is recommended. Otoscopy revealed a moderate amount of cerumen, left ear, and a small amount, right ear. A bernardo was available for a hearing re-evaluation today. Hearing was last evaluated in 2021. He reports no otologic changes, noting longstanding tinnitus. Results are as follow: Pure tone audiometric testing with headphones revealed a mild sloping to a moderately severe / severe sensorineural hearing loss bilaterally. Word recognition scores were good right ear with 80% correct and poor left ear with 60% correct for recorded speech presented at 85/90 dB HL (masked). Normal tympanograms were obtained bilaterally. Results obtained today reflect threshold decline for both ears at select frequencies as well as word recognition for the left ear in comparison to those from 2021. Both ITCs were connected to [employer] and gain was increased 1 step. Reduction was applied in the feedback management screen. He was advised to leave the left aid out as much as possible. [place] was counseled on today's test results. Cerumen removal with primary care is advised with the use of drops first, left ear. Impressions could not be taken today. Given the age and technology of 's current amplification, he is considered eligible for new hearing aids. He has a preference for in the ear style and does not have a pacemaker. Binaural rechargeable half shells with a TV streamer and remote are recommended and agrees. These will be ordered with impressions on file. Fitting was scheduled for 3-25 at 3pm, RTC placed. /kody/ Sona WEST, [facility]-A STAFF DIVIDING MACHINE OPERATOR HELPER Signed: 11/07/2024 16:34 Receipt Acknowledged By: 11/08/2024 07:39 /kody/ FELIPE RIOS ADVANCED SPEECH LANGUAGE PATHOLOGIST PRN 11/15/2024 ADDENDUM STATUS: COMPLETED Hearing aids, TV Streamer and Remote Control received and certified, upcoming appointment scheduled on 11/28/2024. /kody/ FRED ELIZABETH [facility] Core Composer Feeder Signed: 11/15/2024 08:03 NILAY VIERA [place] [facility]
--- OUTSIDE RECORDS SUMMARY | 2024-11-26 10:43 | XMS_ITS | Continuity of Care Document ---
Author Name [facility] Organization [facility] Care Team Providers Care Neon Installer Name Role Phone [facility] Unavailable Unavailable Problems Combined list of problems from Department of Defense and Veterans Affairs facilities. It does not include entries that were removed or entered in error. Problem Status Onset Date Problem Type Date of Resolution Comments Source Anemia (SCT [id number]) Active 09/26/19 23 Condition Sep 05, 2023 Entered By: GENESIS ESCOBEDO Comment: on b12 supplement [facility] Raised TSH level Active 09/26/19 21 Condition Sep 08, 2021 Entered By: GENESIS ESCOBEDO Comment: probably from amiodarone [facility] Vitamin D deficiency Active 09/26/19 19 Condition Sep 07, 2019 Entered By: GENESIS ESCOBEDO Comment: treated with supplement [facility] DM - Diabetes mellitus Active 09/26/19 16 Condition [facility] Hearing Loss, Partial Active 09/26/19 08 Condition [facility] Asbestosis * (ICD-9-CM 501.) Active 09/26/19 07 Condition [facility] Essential hypertension Active 09/26/19 07 Condition [facility] Hyperlipidemia Active 09/26/19 07 Condition [facility] Coronary Artery Disease Active 09/26/18 86 Condition [facility] Personal History of Tobacco Use Active 09/26/18 86 Condition Jul 31, 2007 Entered By: GENESIS ESCOBEDO Comment: discontinued 1985 [facility] Asbestosis Active Condition [facility] Cataract, Nuclear Sclerosis Active Condition [facility] Impaired fasting glucose Active Condition [facility] Squamous cell carcinoma Active Condition [facility] Hearing Loss, Partial * (ICD-9-CM 389.9) Inactive Condition 07/19/2008 [facility] Diagnosis: ICD-10-CM Z46.0 Encounter for fit/adjst of spectacles and contact lenses Active Diagnosis [facility] Diagnosis: ICD-10-CM H25.813 Combined forms of age-related cataract, bilateral Active Diagnosis [facility] Diagnosis: ICD-10-CM H90.3 Sensorineural hearing loss, bilateral Active Diagnosis [facility] Diagnosis: ICD-10-CM C44.92 Squamous cell carcinoma of skin, unspecified Active Diagnosis [facility] Diagnosis: ICD-10-CM J98.4 Other disorders of lung Active Diagnosis [facility] Diagnosis: ICD-10-CM Z23 Encounter for immunization Active Diagnosis [facility] Diagnosis: ICD-10-CM L57.0 Actinic keratosis Active Diagnosis [facility] Diagnosis: ICD-10-CM Z85.828 Personal history of other malignant neoplasm of skin Active Diagnosis [facility] Diagnosis: ICD-10-CM H40.013 Open angle with borderline findings, low risk, bilateral Active Diagnosis [facility] Diagnosis: ICD-10-CM Z46.1 Encounter for fitting and adjustment of hearing aid Active Diagnosis [facility] Medications Combined list of outpatient medications from Department of Defense and Veterans Affairs facilities.Medications provided include 1) outpatient medications from the last 15 months, and 2) patient-reported medications. Medication Details Route Status Patient Instructions Prescription Expires Prescription Number Last Dispense Date Ordering Provider Order Date Order Qty Source ASPIRIN 325MG TAB,EC TAKE ONE TABLET BY MOUTH EVERY DAY ORAL ACTIVE ILDEFONSO ESCOBEDO D 2006 [facility] BUDESONIDE INHL,ORAL INHALE 1 PUFF BY MOUTH AT BEDTIME RESPIR ATORY (INHAL ATION) ACTIVE ESCOBEDO,HOW LUIZ D 2019 [facility] CARBOXYMETH YLCELLULOSE NA 0.5% SOLN,OPH INSTILL 1 DROP INTO EACH EYE FOUR TIMES DAILY NEEDED FOR DRY EYE OPHTHA LMIC ACTIVE 09/29/2025 [id number] ARSALANMaggy Flores NDREW E 2024 15 [facility] CHOLECALCIF LEONOR 50MCG (2,000UNIT) TAB TAKE ONE TABLET BY MOUTH QD ORAL ACTIVE GREGG,HOW LUIZ D 2018 [facility] CYANOCOBALA MIN 1000MCG TAB TAKE ONE TABLET BY MOUTH ONCE DAILY ORAL ACTIVE GREGG,HOW LUIZ D 2022 [facility] EZETIMIBE 10MG TAB TAKE ONE TABLET BY MOUTH EVERY DAY ORAL ACTIVE GREGG,HOW LUIZ D 2006 [facility] HYDROCHLORO THIAZIDE 25MG TAB TAKE ONE TABLET BY MOUTH EVERY DAY ORAL ACTIVE GREGG,HOW LUIZ D 2006 [facility] IPRATROPIUM BR 0.02% SOLN,INHL,2 .5ML INHALE 1 AMPULE (2.5 MLS) VIA UPDRAFT FOUR TIMES DAILY NEEDED FOR BREATHIN G UPDRAF T 09/05/2024 [id number] GREGG,HOW LUIZ D 2022 0120 [facility] LISINOPRIL 40MG TAB TAKE ONE TABLET BY MOUTH EVERY DAY ORAL ACTIVE GREGG,HOW LUIZ D 2006 [facility] METFORMIN HCL 1000MG TAB TAKE TWO TABLETS BY MOUTH ONCE DAILY ORAL ACTIVE GREGG,HOW LUIZ D 2019 [facility] METOPROLOL SUCCINATE 100MG TAB,SA TAKE ONE TABLET BY MOUTH EVERY DAY ORAL ACTIVE GREGG,HOW LUIZ D 2006 [facility] NITROGLYCER IN 0.4MG TAB,SUBLING UAL DISSOLVE ONE TABLET UNDER THE TONGUE EVERY 5 MINUTES NEEDED SUBLIN GUAL ACTIVE ILDEFONSO ESCOBEDO LUIZ D 2006 [facility] ROSUVASTATI N CA 40MG TAB TAKE ONE-HALF TABLET BY MOUTH AT BEDTIME ORAL ACTIVE ILDEFONSO ESCOBEDO LUIZ D 2023 [facility] Immunizations Combined list of available immunizations from the Department of Defense and Veterans Affairs facilities. 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 Comments Source INFLUENZA, HIGH-DOSE, TRIVALENT, PF 2023 GRECIA MCKEON LEFT DELTO ID [id number] A 135 complet ed [facility] INFLUENZA, HIGH-DOSE, QUADRIVALENT 2022 DANGELO GOODMAN E RIGHT DELTO ID [id number] 197 complet ed [facility] INFLUENZA, UNSPECIFIED FORMULATION 2020 88 complet ed [facility] COVID-19 (MODERNA), MRNA, LNP-S, PF, 100 MCG/0.5 ML DOSE 2 2020 207 complet ed MOD; [id number]; 1 [facility] COVID-19 (MODERNA), MRNA, LNP-S, PF, 100 MCG/0.5 ML DOSE 1 2020 207 complet ed MOD; [id number]; 1 [facility] INFLUENZA, HIGH-DOSE, QUADRIVALENT 2019 197 complet ed [facility] INFLUENZA, TRIVALENT, ADJUVANTED 2018 168 complet ed Site: Left Deltoid [facility] INFLUENZA, TRIVALENT, ADJUVANTED 2017 168 complet ed Site: Left Deltoid [facility] INFLUENZA, SEASONAL, INJECTABLE 2016 141 complet ed Site: Right Deltoid [facility] FLU,3 YRS (HISTORICAL) 2015 88 complet ed Site: Left Deltoid [facility] PNEUMOCOCCAL CONJUGATE PCV 13 12/04/ 2015 133 complet ed [facility] FLU,3 YRS (HISTORICAL) 2014 88 complet ed Site: Left Deltoid [facility] DTAP, UNSPECIFIED FORMULATION 2013 107 complet ed Site: Left Deltoid [facility] FLU,3 YRS (HISTORICAL) 2013 88 complet ed Site: Left Deltoid [facility] FLU,3 YRS (HISTORICAL) 2012 88 complet ed [facility] FLU,3 YRS (HISTORICAL) 2011 88 complet ed Site: Left Deltoid [facility] FLU,3 YRS (HISTORICAL) 2010 88 complet ed Site: Left Deltoid [facility] FLU,3 YRS (HISTORICAL) 2009 88 complet ed Site: Left Deltoid [facility] PNEUMOCOCCAL, UNSPECIFIED FORMULATION 2009 109 complet ed [facility] FLU,3 YRS (HISTORICAL) 2008 88 complet ed Site: Left Deltoid [facility] ZOSTER (HISTORICAL) 2008 121 complet ed [facility] FLU,3 YRS (HISTORICAL) 2007 88 complet ed Site: Right Deltoid [facility] FLU,3 YRS (HISTORICAL) 2006 88 complet ed Site: Left Deltoid [facility] TD(ADULT) UNSPECIFIED FORMULATION 2006 139 complet ed [facility] PNEUMOCOCCAL, UNSPECIFIED FORMULATION 2005 109 complet ed [facility] Results Combined list of recent chemistry, hematology and other laboratory results from Department of Defense and Veterans Affairs, ranging from 15 months to all on record, depending upon the facility. Order Name Results Value Reference Range Date Interpretation Specimen Comments Source VITAMIN D 25-OH (Therapy monitor) 25-HYDROXY VITAMIN D3 [MASS/VOLU ME] IN SERUM OR PLASMA 34 ng/mL 30 - 100 08/31 Specimen Type: SERUM Comment: Vitamin D, 25-Hydroxy reports concentrati ons of two common forms, 25-OHD2 and 25-OHD3. 25-OHD3 indicates both endogenous production and supplementa tion. 25-OHD2 is an indicator of exogenous sources such as diet or supplementa tion. Therapy is based on measurement of Total 25-OHD, with levels <20 ng/mL indicative of Vitamin D deficiency, while levels between 20 ng/mL and 30 ng/mL suggest insufficien cy. Optimal levels are > or = 30 ng/mL. For additional information , please refer to http://educ ation.[employer] .com/faq/FA Q199 (This link is being provided for information al/ educational purposes only.) This test was developed and its analytical performance characteris tics have been determined by [employer] [place]. It has not been cleared or approved by the U.S. Food and Drug Administrat ion. This assay has been validated pursuant to the CLIA regulations and is used for clinical purposes. This test was developed and its analytical performance characteris tics have been determined by [employer] [place] It has not been cleared or approved by the U.S. Food and Drug Administrat ion. This assay has been validated pursuant to the CLIA regulations and is used for clinical purposes. Test Performed by [facility], [employer] [facility], [address] [place] [address] Javier Lovett M.D., Ph.D., Director of Laboratorie s , CLIA [id number] TEST PERFORMED AT: , Ordering Provider: JUNE ESCOBEDO Report Released Date/Time: Aug 17, 2024 12:32 PM Reporting Lab: [facility] [address] [facility] [address] Performing Lab: [facility] [employer] [address] [address] [facility] [employer] VITAMIN D 25-OH (Therapy monitor) 25-HYDROXY VITAMIN D3 [MASS/VOLU ME] IN SERUM OR PLASMA 34 ng/mL 08/31 Specimen Type: SERUM Comment: Vitamin D, 25-Hydroxy reports concentrati ons of two common forms, 25-OHD2 and 25-OHD3. 25-OHD3 indicates both endogenous production and supplementa tion. 25-OHD2 is an indicator of exogenous sources such as diet or supplementa tion. Therapy is based on measurement of Total 25-OHD, with levels <20 ng/mL indicative of Vitamin D deficiency, while levels between 20 ng/mL and 30 ng/mL suggest insufficien cy. Optimal levels are > or = 30 ng/mL. For additional information , please refer to http://educ ation.[employer] .com/faq/FA Q199 (This link is being provided for information al/ educational purposes only.) This test was developed and its analytical performance characteris tics have been determined by [employer] [place]. It has not been cleared or approved by the U.S. Food and Drug Administrat ion. This assay has been validated pursuant to the CLIA regulations and is used for clinical purposes. This test was developed and its analytical performance characteris tics have been determined by [employer] [place]. It has not been cleared or approved by the U.S. Food and Drug Administrat ion. This assay has been validated pursuant to the CLIA regulations and is used for clinical purposes. Test Performed by [facility], [employer] [place], [address] [place] [address] Javier Lovett M.D., Ph.D., Director of Laboratorie s , CLIA [id number] TEST PERFORMED AT: , Ordering Provider: JUNE ESCOBEDO Report Released Date/Time: Aug 17, 2024 12:32 PM Reporting Lab: [facility] [employer] [address] [facility] [address] Performing Lab: [facility] [employer] [address] [address] [facility] VITAMIN D 25-OH (Therapy monitor) CALCIFEROL (VIT D2) [MASS/VOLU ME] IN SERUM OR PLASMA <4ng/mL 08/31 Specimen Type: SERUM Comment: Vitamin D, 25-Hydroxy reports concentrati ons of two common forms, 25-OHD2 and 25-OHD3. 25-OHD3 indicates both endogenous production and supplementa tion. 25-OHD2 is an indicator of exogenous sources such as diet or supplementa tion. Therapy is based on measurement of Total 25-OHD, with levels <20 ng/mL indicative of Vitamin D deficiency, while levels between 20 ng/mL and 30 ng/mL suggest insufficien cy. Optimal levels are > or = 30 ng/mL. For additional information , please refer to http://educ ation.[employer] .[employer]/faq/FA Q199 (This link is being provided for information al/ educational purposes only.) This test was developed and its analytical performance characteris tics have been determined by [employer] [place]. It has not been cleared or approved by the U.S. Food and Drug Administrat ion. This assay has been validated pursuant to the CLIA regulations and is used for clinical purposes. This test was developed and its analytical performance characteris tics have been determined by [employer] [place] It has not been cleared or approved by the U.S. Food and Drug Administrat ion. This assay has been validated pursuant to the CLIA regulations and is used for clinical purposes. Test Performed by [facility], [employer] [place], [address] [place] [address] Javier Lovett M.D., Ph.D., Director of Laboratorie s , CLIA [id number] TEST PERFORMED AT: , Ordering Provider: JUNE ESCOBEDO Report Released Date/Time: Aug 17, 2024 12:32 PM Reporting Lab: [facility] [place] [facility] [address] [facility] [address] Performing Lab: [facility] [place] [facility] [address] [address] [facility] TSH THYROTROPI N [UNITS/VOL UME] IN SERUM OR PLASMA 4.06 u[IU]/mL 0.35 - 5.00 08/31 Specimen Type: SERUM No comment entered. Ordering Provider: JUNE ESCOBEDO Report Released Date/Time: Aug 17, 2024 12:32 PM Reporting Lab: [facility] [place] [facility] [address] [facility] [address] Performing Lab: [facility] [place] [facility] [address] [facility] [address] [facility] LIPID PANEL FASTING CHOLESTERO L [MASS/VOLU ME] IN SERUM OR PLASMA 131 mg/dL 08/31 Specimen Type: SERUM No comment entered. Ordering Provider: JUNE ESCOBEDO Report Released Date/Time: Aug 17, 2024 12:32 PM Reporting Lab: [facility] [place] [facility] [address] [facility] [address] Performing Lab: [facility] [place] [address] [address] [facility] [facility] LIPID PANEL FASTING TRIGLYCERI DE [MASS/VOLU ME] IN SERUM OR PLASMA 156 mg/dL 0 - 150 08/31 H Specimen Type: SERUM No comment entered. Ordering Provider: JUNE ESCOBEDO Report Released Date/Time: Aug 17, 2024 12:32 PM Reporting Lab: [facility] [place] [facility] [address] [facility] [address] Performing Lab: [facility] [place] [address] [address] [facility] LIPID PANEL FASTING CHOLESTERO L IN LDL [MASS/VOLU ME] IN SERUM OR PLASMA BY CALCULANGOZIO N 67 mg/dL 0 - 129 08/31 Specimen Type: SERUM No comment entered. Ordering Provider: JUNE ESCOBEDO Report Released Date/Time: Aug 17, 2024 12:32 PM Reporting Lab: [facility] [place] [facility] [address] [facility] [address] Performing Lab: [facility] [place] [address] [address] [facility] LIPID PANEL FASTING CHOLESTERO L.TOTAL/CH OLESTEROL IN HDL [MASS RATIO] IN SERUM OR PLASMA 4.0 08/31 Specimen Type: SERUM No comment entered. Ordering Provider: JUNE ESCOBEDO Report Released Date/Time: Aug 17, 2024 12:32 PM Reporting Lab: [facility] [place] [facility] [address] [facility] [address] Performing Lab: [facility] [place] [facility] [address] [facility] [address] [facility] LIPID PANEL FASTING CHOLESTERO L IN HDL [MASS/VOLU ME] IN SERUM OR PLASMA 33 mg/dL 40 - 60 08/31 L Specimen Type: SERUM No comment entered. Ordering Provider: JUNE ESCOBEDO Report Released Date/Time: Aug 17, 2024 12:32 PM Reporting Lab: [facility] [place] [address] [address] Performing Lab: [facility] [place] [address] [address] [facility] LIVER FUNCTION PROTEIN [MASS/VOLU ME] IN SERUM OR PLASMA 6.5 g/dL 6.0 - 8.3 08/31 Specimen Type: SERUM No comment entered. Ordering Provider: JUNE ESCOBEDO Report Released Date/Time: Aug 17, 2024 12:32 PM Reporting Lab: [facility] [place] [address] [address] Performing Lab: [facility] [address] [address] [facility] LIVER FUNCTION ALBUMIN [MASS/VOLU ME] IN SERUM OR PLASMA 3.7 g/dL 3.5 - 5.0 08/31 Specimen Type: SERUM No comment entered. Ordering Provider: JUNE ESCOBEDO Report Released Date/Time: Aug 17, 2024 12:32 PM Reporting Lab: [facility] [place] [address] [address] Performing Lab: [facility] [place] [address] [address] [facility] [place] [facility] LIVER FUNCTION ALKALINE PHOSPHATAS E [ENZYMATIC ACTIVITY/V OLUME] IN SERUM OR PLASMA 64 U/L 40 - 150 08/31 Specimen Type: SERUM No comment entered. Ordering Provider: JUNE ESCOBEDO Report Released Date/Time: Aug 17, 2024 12:32 PM Reporting Lab: [facility] [place] [facility] [address] [facility] [address] Performing Lab: [facility] [place] [facility] [address] [facility] [address] [facility] [place] [facility] LIVER FUNCTION ASPARTATE AMINOTRANS FERASE [ENZYMATIC ACTIVITY/V OLUME] IN SERUM OR PLASMA 14 U/L 5 - 34 08/31 Specimen Type: SERUM No comment entered. Ordering Provider: JUNE ESCOBEDO Report Released Date/Time: Aug 17, 2024 12:32 PM Reporting Lab: [facility] [place] [facility] [address] [facility] [address] Performing Lab: [facility] [place] [facility] [address] [facility] [address] [facility] [place] [facility] LIVER FUNCTION ALANINE AMINOTRANS FERASE [ENZYMATIC ACTIVITY/V OLUME] IN SERUM OR PLASMA 12 U/L 08/31 Specimen Type: SERUM No comment entered. Ordering Provider: JUNE ESCOBEDO Report Released Date/Time: Aug 17, 2024 12:32 PM Reporting Lab: [facility] [place] [facility] [address] [facility] [address] Performing Lab: [facility] [place] [facility] [address] [facility] [address] [facility] [place] LIVER FUNCTION BILIRUBIN. TOTAL [MASS/VOLU ME] IN SERUM OR PLASMA 0.5 mg/dL 0.2 - 1.2 08/31 Specimen Type: SERUM No comment entered. Ordering Provider: JUNE ESCOBEDO Report Released Date/Time: Aug 17, 2024 12:32 PM Reporting Lab: [facility] [place] [facility] [address] [facility] [address] Performing Lab: [facility] [place] [facility] [address] [facility] [address] [facility] [place] [facility] BASIC METABOLI C PANEL (fasting ) UREA NITROGEN [MASS/VOLU ME] IN SERUM OR PLASMA 16 mg/dL 7 - 25 08/31 Specimen Type: SERUM No comment entered. Ordering Provider: JUNE ESCOBEDO Report Released Date/Time: Aug 17, 2024 12:32 PM Reporting Lab: [facility] [place] [facility] [address] [facility] [address] Performing Lab: [facility] [address] [facility] [address] [facility] BASIC METABOLI C PANEL (fasting ) GLUCOSE [MASS/VOLU ME] IN SERUM OR PLASMA 132 mg/dL 65 - 100 08/31 H Specimen Type: SERUM No comment entered. Ordering Provider: JUNE ESCOBEDO Report Released Date/Time: Aug 17, 2024 12:32 PM Reporting Lab: [facility] [place] [facility] [address] [facility] [address] Performing Lab: [facility] [place] [address] [address] [facility] [place] [facility] BASIC METABOLI C PANEL (fasting ) SODIUM [MOLES/VOL UME] IN SERUM OR PLASMA 140 mmol/L 135 - 145 08/31 Specimen Type: SERUM No comment entered. Ordering Provider: JUNE ESCOBEDO Report Released Date/Time: Aug 17, 2024 12:32 PM Reporting Lab: [facility] [place] [facility] [address] [facility] [address] Performing Lab: [facility] [place] [address] [address] [facility]N [facility] [facility] BASIC METABOLI C PANEL (fasting ) POTASSIUM [MOLES/VOL UME] IN SERUM OR PLASMA 4.8 mmol/L 3.5 - 5.0 08/31 Specimen Type: SERUM No comment entered. Ordering Provider: JUNE ESCOBEDO Report Released Date/Time: Aug 17, 2024 12:32 PM Reporting Lab: [facility] [place] [facility] [address] [facility] [address] Performing Lab: [facility] [place] [facility] [address] [facility] [address] [facility] [place] [facility] BASIC METABOLI C PANEL (fasting ) CHLORIDE [MOLES/VOL UME] IN SERUM OR PLASMA 108 mmol/L 100 - 110 08/31 Specimen Type: SERUM No comment entered. Ordering Provider: JUNE ESCOBEDO Report Released Date/Time: Aug 17, 2024 12:32 PM Reporting Lab: [facility] [place] [facility] [address] [facility] [address] Performing Lab: [facility] [place] [facility] [address] [facility] [address] [facility] [place] [facility] BASIC METABOLI C PANEL (fasting ) CARBON DIOXIDE, TOTAL [MOLES/VOL UME] IN SERUM OR PLASMA 24 meq/L 20 - 30 08/31 Specimen Type: SERUM No comment entered. Ordering Provider: JUNE ESCOBEDO Report Released Date/Time: Aug 17, 2024 12:32 PM Reporting Lab: [facility] [place] [facility] [address] [facility] [address] Performing Lab: [facility] [place] [facility] [address] [facility] [address] [facility] [place] [facility] BASIC METABOLI C PANEL (fasting ) CREATININE [MASS/VOLU ME] IN SERUM OR PLASMA 1.26 mg/dL 0.50 - 1.40 08/31 Specimen Type: SERUM No comment entered. Ordering Provider: JUNE ESCOBEDO Report Released Date/Time: Aug 17, 2024 12:32 PM Reporting Lab: [facility] [place] [facility] [address] [facility] [id number] Performing Lab: [facility] [place] [address] [id number] [facility] [place] [facility] BASIC METABOLI C PANEL (fasting ) GLOMERULAR FILTRATION RATE/1.73 SQ M.PREDICTE D [VOLUME RATE/AREA] IN SERUM, PLASMA OR BLOOD BY CREATININE -BASED FORMULA (CKD-EPI 2020) 58 mL/min 60 08/31 L Specimen Type: SERUM No comment entered. Ordering Provider: JUNE ESCOBEDO Report Released Date/Time: Aug 17, 2024 12:32 PM Reporting Lab[facility] [address] [facility] [address] Performing Lab: [facility] [address] [facility] [address] [facility] HEMOGLOB IN A1C PANEL HEMOGLOBIN A1C/HEMOGL OBIN.TOTAL IN BLOOD BY HPLC 6.7 4.0 - 5.6 08/31 H Specimen Type: BLOOD Comment: Values obtained from A1C measurement s can vary. For atypical A1C assays, a reported value of 7.0 could actually be between 6.72 and 7.28 if measured by a reference method. A reported value of 9.0 could actually be between 8.73 and 9.27. Ref: http://www. ngsp.org/[place] Pdata.asp Ordering Provider: JUNE ESCOBEDO Report Released Date/Time: Aug 17, 2024 12:32 PM Reporting Lab: [facility] [address] [facility] [address] Performing Lab: [facility] [address] [facility] [address] [facility] VITAMIN B12 COBALAMIN (VITAMIN B12) [MASS/VOLU ME] IN SERUM OR PLASMA >2000pg/ mL 200 - 900 08/31 H Specimen Type: SERUM No comment entered. Ordering Provider: JUNE ESCOBEDO Report Released Date/Time: Aug 17, 2024 12:32 PM Reporting Lab: [facility] [address] [facility] [address] Performing Lab: [facility] [address] [facility] [address] [facility] MICROALB UMIN CREATINI NE RATIO PANEL MICROALBUM IN/CREATIN INE [MASS RATIO] IN URINE 13.6 mg/g 0 - 29.9 08/31 Specimen Type: URINE No comment entered. Ordering Provider: JUNE ESCOBEDO Report Released Date/Time: Aug 17, 2024 12:32 PM Reporting Lab: [facility] [place] [facility] [address] [facility] [address] Performing Lab: [facility] [place] [facility] [address] [facility] [address] [facility] [place] [facility] MICROALB UMIN CREATINI NE RATIO PANEL MICROALBUM IN [MASS/VOLU ME] IN URINE 0.9 mg/dL 08/31 Specimen Type: URINE No comment entered. Ordering Provider: JUNE ESCOBEDO Report Released Date/Time: Aug 17, 2024 12:32 PM Reporting Lab: [facility] [place] [facility] [address] [facility] [address] Performing Lab: [facility] [place] [facility] [address] [facility] [address] [facility] [place] [facility] MICROALB UMIN CREATINI NE RATIO PANEL CREATININE [MASS/VOLU ME] IN URINE 66.42 mg/dL 08/31 Specimen Type: URINE No comment entered. Ordering Provider: JUNE ESCOBEDO Report Released Date/Time: Aug 17, 2024 12:32 PM Reporting Lab: [facility] [place] [facility] [address] [facility] [address] Performing Lab: [facility] [place] [facility] [address] [facility] [address] [facility] [place] [facility] URINALYS IS CLEAN CATCH COLOR OF URINE Light-Ye llow 08/31 Specimen Type: URINE Comment: If Glucose = >500 and Ketones are positive, please alert the Physician. Ordering Provider: JUNE ESCOBEDO Report Released Date/Time: Aug 17, 2024 12:32 PM Reporting Lab: [facility] [place] [facility] [address] [facility] [address] Performing Lab: [facility] [place] [address] [address] [facility] [place] [facility] URINALYS IS CLEAN CATCH APPEARANCE OF URINE Clear 08/31 Specimen Type: URINE Comment: If Glucose = >500 and Ketones are positive, please alert the Physician. Ordering Provider: JUNE ESCOBEDO Report Released Date/Time: Aug 17, 2024 12:32 PM Reporting Lab: [facility] [place] [address] [address] Performing Lab: [facility] [place] [facility] [address] [facility] [address] [facility] [place] URINALYS IS CLEAN CATCH GLUCOSE [MASS/VOLU ME] IN URINE Normalmg /dL 08/31 Specimen Type: URINE Comment: If Glucose = >500 and Ketones are positive, please alert the Physician. Ordering Provider: JUNE ESCOBEDO Report Released Date/Time: Aug 17, 2024 12:32 PM Reporting Lab: [facility] [place] [address] [address] Performing Lab: [facility] [place] [address] [address] [facility] [place] [facility] URINALYS IS CLEAN CATCH KETONES [MASS/VOLU ME] IN URINE BY TEST STRIP NEGATIVE mg/dL 08/31 Specimen Type: URINE Comment: If Glucose = >500 and Ketones are positive, please alert the Physician. Ordering Provider: JUNE ESCOBEDO Report Released Date/Time: Aug 17, 2024 12:32 PM Reporting Lab: [facility] [place] [facility] [address] [facility] [address] Performing Lab: [facility] [place] [address] [address] [facility] [place] [facility] URINALYS IS CLEAN CATCH ERYTHROCYT ES [PRESENCE] IN URINE SEDIMENT BY LIGHT MICROSCOPY NEGATIVE mg/dL 08/31 Specimen Type: URINE Comment: If Glucose = >500 and Ketones are positive, please alert the Physician. Ordering Provider: JUNE ESCOBEDO Report Released Date/Time: Aug 17, 2024 12:32 PM Reporting Lab: [facility] [place] [facility] [address] [facility] [address] Performing Lab: [facility] [place] [facility] [address] [facility] [address] [facility] [place] [facility] URINALYS IS CLEAN CATCH PROTEIN [MASS/VOLU ME] IN URINE BY TEST STRIP NEGATIVE mg/dL 08/31 Specimen Type: URINE Comment: If Glucose = >500 and Ketones are positive, please alert the Physician. Ordering Provider: JUNE ESCOBEDO Report Released Date/Time: Aug 17, 2024 12:32 PM Reporting Lab: [facility] [place] [facility] [address] [facility] [address] Performing Lab: [facility] [place] [facility] [address] [facility] [address] [facility] [place] [facility] URINALYS IS CLEAN CATCH NITRITE [PRESENCE] IN URINE NEGATIVE mg/dL 08/31 Specimen Type: URINE Comment: If Glucose = >500 and Ketones are positive, please alert the Physician. Ordering Provider: JUNE ESCOBEDO Report Released Date/Time: Aug 17, 2024 12:32 PM Reporting Lab: [facility] [place] [facility] [address] [facility] [address] Performing Lab: [facility] [place] [facility] [address] [facility] [address] [facility] [place] URINALYS IS CLEAN CATCH BILIRUBIN. TOTAL [PRESENCE] IN URINE NEGATIVE mg/dL 08/31 Specimen Type: URINE Comment: If Glucose = >500 and Ketones are positive, please alert the Physician. Ordering Provider: JUNE ESCOBEDO Report Released Date/Time: Aug 17, 2024 12:32 PM Reporting Lab: [facility] [place] [facility] [address] [facility] [address] Performing Lab: [facility] [place] [facility] [address] [facility] [address] [facility] [place] URINALYS IS CLEAN CATCH SPECIFIC GRAVITY OF URINE BY REFRACTOME TRY 1.014 1.016 - 1.022 08/31 L Specimen Type: URINE Comment: If Glucose = >500 and Ketones are positive, please alert the Physician. Ordering Provider: JUNE ESCOBEDO Report Released Date/Time: Aug 17, 2024 12:32 PM Reporting Lab: [facility] [place] [facility] [address] [facility] [address] Performing Lab: [facility]RN [facility]ITALUS[facility] [address] [address] [facility] [place] [facility] URINALYS IS CLEAN CATCH PH OF URINE BY TEST STRIP 6.5 5.0 - 9.0 08/31 Specimen Type: URINE Comment: If Glucose = >500 and Ketones are positive, please alert the Physician. Ordering Provider: JUNE ESCOBEDO Report Released Date/Time: Aug 17, 2024 12:32 PM Reporting Lab: [facility] [place] [address] [address] Performing Lab: [facility]RN [facility] [address] [address] [facility]ITALUSE [facility] URINALYS IS CLEAN CATCH UROBILINOG EN [MASS/VOLU ME] IN URINE BY TEST STRIP Normalmg /dL <2.0 - 2.0 08/31 Specimen Type: URINE Comment: If Glucose = >500 and Ketones are positive, please alert the Physician. Ordering Provider: JUNE ESCOBEDO Report Released Date/Time: Aug 17, 2024 12:32 PM Reporting Lab: [facility] [place] [address] [address] Performing Lab: [facility] [address] [address] [facility] [place] [facility] URINALYS IS CLEAN CATCH LEUKOCYTE ESTERASE [PRESENCE] IN URINE BY TEST STRIP NEGATIVE 08/31 Specimen Type: URINE Comment: If Glucose = >500 and Ketones are positive, please alert the Physician. Ordering Provider: JUNE ESCOBEDO Report Released Date/Time: Aug 17, 2024 12:32 PM Reporting Lab: [facility] [place] [address] [address] Performing Lab: [facility] [place] [facility] [address] [facility] [address] [facility] [place] [facility] CBC AND DIFF (AUTO) LEUKOCYTES [#/VOLUME] IN BLOOD BY AUTOMATED COUNT 7.49 10*3/uL 4.50 - 11.00 08/31 Specimen Type: BLOOD No comment entered. Ordering Provider: JUNE ESCOBEDO Report Released Date/Time: Aug 17, 2024 12:32 PM Reporting Lab: [facility] [place] [facility] [address] [facility] [address] Performing Lab: [facility] [place] [facility] [address] [facility] [address] [facility] [place] [facility] CBC AND DIFF (AUTO) ERYTHROCYT ES [#/VOLUME] IN BLOOD BY AUTOMATED COUNT 4.23 10*6/uL 4.23 - 5.66 08/31 Specimen Type: BLOOD No comment entered. Ordering Provider: JUNE ESCOBEDO Report Released Date/Time: Aug 17, 2024 12:32 PM Reporting Lab: [facility] [place] [facility] [address] [facility] [address] Performing Lab: [facility] [place] [facility] [address] [facility] [address] [facility] [place] [facility] CBC AND DIFF (AUTO) HEMOGLOBIN [MASS/VOLU ME] IN BLOOD 13.3 g/dL 12.8 - 17 08/31 Specimen Type: BLOOD No comment entered. Ordering Provider: JUNE ESCOBEDO Report Released Date/Time: Aug 17, 2024 12:32 PM Reporting Lab: [facility] [place] [facility] [address] [facility] [address] Performing Lab: [facility] [place] [facility] [address] [facility] [address] [facility] [place] [facility] CBC AND DIFF (AUTO) HEMATOCRIT [VOLUME FRACTION] OF BLOOD BY AUTOMATED COUNT 38.8 39.2 - 50.4 08/31 L Specimen Type: BLOOD No comment entered. Ordering Provider: JUNE ESCOBEDO Report Released Date/Time: Aug 17, 2024 12:32 PM Reporting Lab: [facility] [place] [facility] [address] [facility] [address] Performing Lab: [facility] [place] [facility] [address] [facility] [address] [facility] [place] [facility] CBC AND DIFF (AUTO) MCV [ENTITIC VOLUME] BY AUTOMATED COUNT 91.7 fL 82 - 99 08/31 Specimen Type: BLOOD No comment entered. Ordering Provider: JUNE ESCOBEDO Report Released Date/Time: Aug 17, 2024 12:32 PM Reporting Lab: [facility] [place] [facility] [address] [facility] [address] Performing Lab: [facility] [place] [facility] [address] [facility] [address] [facility] [place] [facility] CBC AND DIFF (AUTO) MCHC [MASS/VOLU ME] BY AUTOMATED COUNT 34.3 g/dL 30.8 - 35.1 08/31 Specimen Type: BLOOD No comment entered. Ordering Provider: JUNE ESCOBEDO Report Released Date/Time: Aug 17, 2024 12:32 PM Reporting Lab: [facility] [place] [address] [address] Performing Lab: [facility] [place] [facility] [address] [facility] [address] [facility] [place] [facility] CBC AND DIFF (AUTO) PLATELETS [#/VOLUME] IN BLOOD BY AUTOMATED COUNT 185 10*3/uL 140 - 360 08/31 Specimen Type: BLOOD No comment entered. Ordering Provider: JUNE ESCOBEDO Report Released Date/Time: Aug 17, 2024 12:32 PM Reporting Lab: [facility] [place] [facility] [address] [facility] [address] Performing Lab: [facility] [place] [address] [address] [facility] [place] [facility] CBC AND DIFF (AUTO) ERYTHROCYT E DISTRIBUTI ON WIDTH [RATIO] BY AUTOMATED COUNT 12.6 12.0 - 16.0 08/31 Specimen Type: BLOOD No comment entered. Ordering Provider: JUNE ESCOBEDO Report Released Date/Time: Aug 17, 2024 12:32 PM Reporting Lab: [facility] [place] [facility] [address] [facility] [address] Performing Lab: [facility] [place] [facility] [address] [facility] [address] [facility] [place] CBC AND DIFF (AUTO) MONOCYTES [#/VOLUME] IN BLOOD BY AUTOMATED COUNT 0.73 10*3/uL 0.30 - 1.10 08/31 Specimen Type: BLOOD No comment entered. Ordering Provider: JUNE ESCOBEDO Report Released Date/Time: Aug 17, 2024 12:32 PM Reporting Lab: [facility] [place] [facility] [address] [facility] [address] Performing Lab: [facility] [place] [facility] [address] [facility] [address] [facility] [place] CBC AND DIFF (AUTO) MCH [ENTITIC MASS] BY AUTOMATED COUNT 31.4 pg 26.2 - 32.6 08/31 Specimen Type: BLOOD No comment entered. Ordering Provider: JUNE ESCOBEDO Report Released Date/Time: Aug 17, 2024 12:32 PM Reporting Lab: [facility] [place] [facility] [address] [facility] [address] Performing Lab: [facility] [place] [facility] [address] [facility] [address] [facility] [place] [facility] CBC AND DIFF (AUTO) NEUTROPHIL S/100 LEUKOCYTES IN BLOOD BY AUTOMATED COUNT 67.4 43.7 - 75.8 08/31 Specimen Type: BLOOD No comment entered. Ordering Provider: JUNE ESCOBEDO Report Released Date/Time: Aug 17, 2024 12:32 PM Reporting Lab: [facility] [place] [facility] [address] [facility] [address] Performing Lab: [facility] [place] [address] [address] [facility] [place] CBC AND DIFF (AUTO) LYMPHOCYTE S/100 LEUKOCYTES IN BLOOD BY AUTOMATED COUNT 20.0 14.0 - 42.3 08/31 Specimen Type: BLOOD No comment entered. Ordering Provider: JUNE ESCOBEDO Report Released Date/Time: Aug 17, 2024 12:32 PM Reporting Lab: [facility] [place] [facility] [address] [facility] [address] Performing Lab: [facility] [place] [facility] [address] [facility] [address] [facility] [place] [facility] CBC AND DIFF (AUTO) MONOCYTES/ 100 LEUKOCYTES IN BLOOD BY AUTOMATED COUNT 9.7 5.1 - 13.7 08/31 Specimen Type: BLOOD No comment entered. Ordering Provider: JUNE ESCOBEDO Report Released Date/Time: Aug 17, 2024 12:32 PM Reporting Lab: [facility] [place] [address] [address] Performing Lab: [facility] [place] [address] [address] [facility] [place] [facility] CBC AND DIFF (AUTO) EOSINOPHIL S/100 LEUKOCYTES IN BLOOD BY AUTOMATED COUNT 2.1 0.4 - 6.8 08/31 Specimen Type: BLOOD No comment entered. Ordering Provider: JUNE ESCOBEDO Report Released Date/Time: Aug 17, 2024 12:32 PM Reporting Lab: [facility] [place] [address] [address] Performing Lab: [facility] [place] [address] [address] [facility] [place] [facility] CBC AND DIFF (AUTO) BASOPHILS/ 100 LEUKOCYTES IN BLOOD BY AUTOMATED COUNT 0.4 0.1 - 2.0 08/31 Specimen Type: BLOOD No comment entered. Ordering Provider: JUNE ESCOBEDO Report Released Date/Time: Aug 17, 2024 12:32 PM Reporting Lab: [facility] [place] [address] [address] Performing Lab: [facility] [place] [address] [address] [facility] CBC AND DIFF (AUTO) NEUTROPHIL S [#/VOLUME] IN BLOOD BY AUTOMATED COUNT 5.04 10*3/uL 2.20 - 7.60 08/31 Specimen Type: BLOOD No comment entered. Ordering Provider: JUNE ESCOBEDO Report Released Date/Time: Aug 17, 2024 12:32 PM Reporting Lab: [facility] [place] [facility] [address] [place] [address] Performing Lab: [facility] [place] [facility] [address] [facility] [address] [facility] CBC AND DIFF (AUTO) LYMPHOCYTE S [#/VOLUME] IN BLOOD BY AUTOMATED COUNT 1.50 10*3/uL 1.00 - 3.20 08/31 Specimen Type: BLOOD No comment entered. Ordering Provider: JUNE ESCOBEDO Report Released Date/Time: Aug 17, 2024 12:32 PM Reporting Lab: [facility] [place] [facility] [address] [place] [address] Performing Lab: [facility] [place] [facility] [address] [facility] [address] [facility] [place] CBC AND DIFF (AUTO) EOSINOPHIL S [#/VOLUME] IN BLOOD BY AUTOMATED COUNT 0.16 10*3/uL 0.03 - 0.44 08/31 Specimen Type: BLOOD No comment entered. Ordering Provider: JUNE ESCOBEDO Report Released Date/Time: Aug 17, 2024 12:32 PM Reporting Lab: [facility] [place] [facility] [address] [facility] [address] Performing Lab: [facility] [place] [address] [address] [facility] CBC AND DIFF (AUTO) BASOPHILS [#/VOLUME] IN BLOOD BY AUTOMATED COUNT 0.03 10*3/uL 0.01 - 0.13 08/31 Specimen Type: BLOOD No comment entered. Ordering Provider: UJNE ESCOBEDO Report Released Date/Time: Aug 17, 2024 12:32 PM Reporting Lab: [facility] [place] [facility] [address] [facility] [address] Performing Lab: [facility] [place] [facility] [address] [facility] [address] [facility] [place] [facility] CBC AND DIFF (AUTO) IMMATURE GRANULOCYT ES/100 LEUKOCYTES IN BLOOD BY AUTOMATED COUNT 0.4 0.0 - 0.7 08/31 Specimen Type: BLOOD No comment entered. Ordering Provider: JUNE ESCOBEDO Report Released Date/Time: Aug 17, 2024 12:32 PM Reporting Lab: [facility] [place] [facility] [address] [facility] [address] Performing Lab: [facility] [place] [facility] [address] [facility] [address] [facility] [place] [facility] CBC AND DIFF (AUTO) IMMATURE GRANULOCYT ES [#/VOLUME] IN BLOOD 0.03 10*3/uL 0.00 - 0.06 08/31 Specimen Type: BLOOD No comment entered. Ordering Provider: JUNE ESCOBEDO Report Released Date/Time: Aug 17, 2024 12:32 PM Reporting Lab: [facility] [place] [facility] [address] [facility] [address] Performing Lab: [facility] [place] [facility] [address] [facility] [address] [facility] [place] [facility] CBC AND DIFF (AUTO) NRBC % 0.0 0.0 - 0.0 08/31 Specimen Type: BLOOD No comment entered. Ordering Provider: JUNE ESCOBEDO Report Released Date/Time: Aug 17, 2024 12:32 PM Reporting Lab: [facility] [place] [facility] [address] [facility] [address] Performing Lab: [facility] [place] [address] [address] [facility] [place] [facility] CBC AND DIFF (AUTO) NRBC, ABS 0.00 10*3/uL 0.00 - 0.00 08/31 Specimen Type: BLOOD No comment entered. Ordering Provider: ESCOBEDO,HOWAR D D Report Released Date/Time: Aug 17, 2024 12:32 PM Reporting Lab: [facility] [place] [facility] [address] [facility] [address] Performing Lab: [facility] [place] [facility] [address] [facility] [address] [facility] Vital Signs Combined list of inpatient and outpatient Vital Signs from Department of Defense and Veterans Affairs, ranging from 12 months to all on record, depending upon the facility. Vital Sign Value Date Comments Source SYSTOLIC BLOOD PRESSURE 126 09/06/20 24 08:41:15 [facility] DIASTOLIC BLOOD PRESSURE 78 024 08:41:15 [facility] PULSE OXIMETRY 96 09/06/2024 08:41:15 [facility] WEIGHT 242.1 09/06/2024 08:41:15 [facility] BMI 32 kg/m2 09/06/2024 08:41:15 [facility] PAIN 0 09/06/2024 08:41:15 [facility] HEIGHT 73 09/06/2024 08:41:15 [facility] TEMPERATURE 98 09/06/2024 08:41:15 [facility] PULSE 71 09/06/2024 08:41:15 [facility] RESPIRATION 16 09/06/2024 08:41:15 [facility] Encounters Combined list of: 1) Encounters from [facility] facilities going backup to the last 18 months, not all [facility] inpatient encounters are included; 2) Encounters from the [facility] Defense facilities going backup to 280 months. Location Location Details Encounter Type Encounter Number Reason For Visit Attending Provider ADM Date DC Date Status Disposition Source [facility] Outpatient Encounter [id number] 06/03 [facility] HEARING AID REPAIR/MOD IFYING [id number] Diagnos is: ICD-10- CM Z46.1 Encount er for fitting and adjustm ent of hearing aid RONA ADAM 06/21 [facility] OFFICE O/P EST MOD 30-39 MIN [id number] Diagnos is: ICD-10- CM L57.0 Actinic keratos is JOSEPH CASAREZ 06/21 [facility] EYE EXAM&TX ESTAB PT 1/>VST [id number] Diagnos is: ICD-10- CM H40.013 Open angle with borderl ine finding s, low risk, bilater AIMEE Dias 07/13 [facility] Outpatient Encounter [id number] 07/14 [facility] FIT SPECTACLES MULTIFOCAL [id number] Diagnos is: ICD-10- CM Z46.0 Encount er for fit/adj st of spectac les and contact lenses VÍCTOR CHAUDHARY 07/14 [facility] HEARING AID FITTING/CH ECKING [id number] Diagnos is: ICD-10- CM Z46.1 Encount er for fitting and adjustm ent of hearing aid Tiffani VIERA 07/21 [facility] OFF/OP EST MAY X REQ PHY/QHP [id number] Diagnos is: ICD-10- CM Z23 Encount er for immuniz ation NGOZI GOODMAN E 07/21 [facility] Outpatient Encounter [id number] SHAUNAKRISSY Suresh E 07/28 [facility] Out[facility] Encounter [id number] 08/03 [facility] Out[facility] Encounter [id number] 08/29 [facility] OFFICE O/P EST LOW 20-29 MIN [id number] Diagnos is: ICD-10- CM J98.4 Other disorde rs of lung ANDREA ESCOBEDO RD D [facility]05 [facility] [facility] REPAIR & ADJUST SPECTACLES [id number] Diagnos is: ICD-10- CM Z46.0 Encount er for fit/adj st of spectac les and contact lenses VÍCTOR CHAUDHARY 09/05 [facility] OFFICE O/P EST LOW 20 MIN [id number] Diagnos is: ICD-10- CM 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 Diagnos is: ICD-10- CM 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 JOSEPH CASAREZ 02/15 [facility] OFFICE O/P EST HI 40 MIN [id number] Diagnos is: ICD-10- CM L57.0 Actinic keratos is JOSEPH CASAREZ 05/31 [facility] Out[facility] Encounter [id number] AVIVA MAGALLON MD 06/04 [facility] En[facility] [id number] 06/28 [facility] En[facility] [id number] 07/05 [facility] Encounter [id number] 07/14 [facility] [id number] 07/17 [facility] Encounter [id number] 08/16 [facility] OFF/OP EST MAY X REQ PHY/QHP [id number] 1. Diagnos is: ICD-10- CM Z23 Encount er for immuniz atGRECIA Luna 08/31 [facility] Encounter [id number] 09/06 [facility] OFFICE O/P EST LOW 20 MIN [id number] Diagnos is: ICD-10- CM J98.4 Other disorde rs of lung ANDREA ESCOBEDO RD 09/06 [facility] Encounter [id number] 09/25 [facility] OFFICE O/P EST HI 40 MIN [id number] Diagnos is: ICD-10- CM 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, unspeci JOSEPH Moses 10/25 [facility] HEARING AID XM&SLCTN BINAURL [id number] Diagnos is: ICD-10- CM H90.3 Sensori neural hearing loss, Tiffani Bojorquez ANIKET E 11/07 [facility] [place] 1 [id number] Diagnos is: ICD-10- CM H25.813 Combine d forms of age-rel ated catarac t, bilchantel al ARTURO,AN CARLOS ENRIQUE E 11/13 [facility] FIT SPECTACLES MULTIFOCAL [id number] Diagnos is: ICD-10- CM Z46.0 Encount er for fit/adj st of spectac les and contact lenses AIMEE MORRIS 11/13 [facility] Social History Combined list of available smoking, tobacco, and other social history from Department of Defense and Veterans Affairs facilities. Social History Type Response Date Comment Source Tobacco smoking status [facility] VA-TOBACCO USE FORMER CIGARETTES 09/06/2024 [facility] History of tobacco use MA-TOBACCO NEVER USED OTHER TYPE 09/06/2024 [facility] History of tobacco use MA-TOBACCO FORMER USER 09/05/2023 [facility] History of tobacco use MA-TOBACCO FORMER USER 09/08/2022 [facility] History of tobacco use MA-TOBACCO FORMER USER 09/08/2021 [facility] History of tobacco use MA-TOBACCO FORMER USER 09/09/2020 [facility] History of tobacco use MA-TOBACCO QUIT 15 YRS OR MORE 09/08/2018 [facility] History of tobacco use MA-TOBACCO NEVER USED 09/08/2018 [facility] History of tobacco use QUIT TOBACCO USE > 7 YEARS AGO 08/30/2017 pt quit 35 yrs ago. [facility] History of tobacco use QUIT TOBACCO USE > 7 YEARS AGO 08/28/2016 pt states he stop smoking in 1985. [facility] History of tobacco use LIFETIME NON-TOBACCO USER 08/29/2015 [facility] History of tobacco use QUIT TOBACCO USE > 7 YEARS AGO 07/19/2008 [facility] History of tobacco use QUIT TOBACCO USE 1-7 YEARS AGO 07/31/2007 discontinued 1985 [facility] History of tobacco use QUIT TOBACCO USE > 7 YEARS AGO 07/31/2007 QUIT 21 YEARS AGO [facility] Plan of Care List of future care activities from Department of Veterans Affairs facilities. Additional future care activities may be listed in the Assessment and Plan section. Date/Time Care Activity Care Activity Detail Facili ty 11/28/2024 AMBULATORY - REHAB MEDICINE AMBULATORY - REHAB MEDICINE [facility] 02/06/2025 AMBULATORY - MEDICINE AMBULATORY - MEDICI [facility]
--- OUTSIDE RECORDS SUMMARY | 2024-11-26 10:43 | XMS_ITS ---
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 Name Role Phone KIKE PIMENTEL Primary Care Provider Unavailabl e Insurance Providers: [...] Ann's Name Patient's Relationship to Policy Ann [facility] MEDICARE SUPPLEMEN APRIL MEDEX 2 Sep 26, 2014 [id number] [phone] CYNDI PARKS JR [place]PP[place] APRIL MEDEX 2 Sep 26, 2014 [id number] CYNDI PARKS JR [place] APRIL MEDEX 2 Sep 26, 2014 [id number] CYNDI PARKS JR PATIENT BCBS OF [facility] Sep 26, 2008 [id number] Pilar PARKS SPOUSE [place] OF [place]ARD[place] MEDICARE SUPPLEMEN APRIL MEDEX 2 Sep 26, 2014 [id number] CYNDI PARKS JR PATIENT [employer] ([id number]) PRESCRIPT ION PHARM ACY Nov 24, 2008 [facility] [id number] [phone] Pilar PARKS SPOUSE MEDICARE (WNR) MEDICARE (M) PART B Apr 26, 2010 PART B [id number] CYNDI PARKS JR PATIENT MEDICARE (WNR) MEDICARE (M) PART B Apr 26, 2010 PART B [id number] CYNDI PARKS JR PATIENT MEDICARE (WNR) MEDICARE (M) PART A May 27, 2009 PART A [id number] [phone] CYNDI PARKS JR PATIENT MEDICARE (WNR) MEDICARE (M) PART A May 27, 2009 PART A [id number] CYNDI PARKS JR PATIENT Selected Encounter This section includes the information on record at [place] for the Encounter. Date/Time Encounter Type Encounter Description Reason Provider Source Sep 06, 2024 09:00 AM OFFICE O/P EST LOW 20 MIN PRIMARY CARE/MEDICINE ICD-10-CM J98.4 Other disorders of lung KIKE PIMENTEL [facility] Encounter Template Text not used by [place] Assessments - Encounter Diagnoses This section includes the primary and secondary diagnoses documented for the Encounter. Date/Time Primary/Secondary Diagnosis Diagnosis Name Provider Source Oct 01, 2024 08:31 AM PRIMARY Other disorders of lung KIKE PIMENTEL [facility] Plan of Treatment: Future Appointments (+ 6 months) and Future Tests (+/- 45 days) The Plan of Treatment section includes future care activities for the patient from all [place] treatmentfacilities. This section includes future appointments and future orders which are active, pending or scheduled. Future Appointments This section includes appointments that were scheduled to occur 6 months from the date of the Encounter, up to a maximum of 20 appointments. The data comes from all [place] treatment facilities. Appointment Date/Time Appointment Type Appointme nt Facility Name Oct 25, 2024 08:00 AM AMBULATORY - MEDICINE [facility] Nov 07, 2024 02:00 PM AMBULATORY - REHAB MEDICIN E [facility] Nov 13, 2024 10:30 AM AMBULATORY - MED[facility]INE [facility] Nov 28, 2024 03:00 PM [facility] February 06, 2025 07:30 AM AMBULATORY - MEDICINE [facility] Lab Results: +/- 30 days of the encounter This section includes the Chemistry and Hematology Lab Results on record with [place] for the patient. Radiology Reports and Pathology Reports are provided separately, in subsequent sections. Lab Results This section contains the Chemistry/Hematology Results that were resulted 30 days before or 30 daysafter the date of the Encounter. Date/Time Source Result Type Result - Unit Interpretation Reference Range Comment Aug 31, 2024 07:57 AM [facility] VITAMIN D 25-OH (Therapy monitor) Specimen Type: SERUM Comment: Vitamin D, 25-Hydroxy reports concentrations of two common forms, 25-OHD2 and 25-OHD3. 25-OHD3 indicates both endogenous production and supplementation. 25-OHD2 is an indicator of exogenous sources such as diet or supplementation. Therapy is based on measurement of Total 25-OHD, with levels <20 ng/mL indicative of Vitamin D deficiency, while levels between 20 ng/mL and 30 ng/mL suggest insufficiency. Optimal levels are > or = 30 ng/mL. For additional information, please refer to http://education .[employer]/faq/JUZ088 (This link is being provided for informational/ educational purposes only.) This test was developed and its analytical performance characteristics have been determined by [employer], [place]. It has not been cleared or approved by the U.S. Food and Drug Administration. This assay has been validated pursuant to the CLIA regulations and is used for clinical purposes. This test was developed and its analytical performance characteristics have been determined by [employer] [place], [place]. It has not been cleared or approved by the U.S. Food and Drug Administration. This assay has been validated pursuant to the CLIA regulations and is used for clinical purposes. Test Performed by [facility], [address] [facility], [address] [place], [place] Javier Lovett M.D., Ph.D., Director of Laboratories , CLIA [id number] TEST PERFORMED AT: , Ordering Provider: KIKE PIMENTEL Report Released Date/Time: Aug 17, 2024 12:32 PM Reporting Lab: [facility] [address] [address] Performing Lab: [facility] [address] [address] VITAMIN D, 25-OH, TOTAL 34 ng/mL 30-100 VITAMIN D, 25-OH, D3 34 ng/mL VITAMIN D, 25-OH, D2 <4 ng/mL Aug 31, 2024 07:57 AM [facility] TSH Specimen Type: SERUM No comment entered. Ordering Provider: KIKE PIMENTEL Report Released Date/Time: Aug 17, 2024 12:32 PM Reporting Lab: [facility] [place] [place] [address] [address] Performing Lab: [facility] [address] [address] TSH 4.06 u[IU]/mL 0.35-5.00 Aug 31, 2024 07:57 AM [facility] LIPID PANEL FASTING Specimen Type: SERUM No comment entered. Ordering Provider: KIKE PIMENTEL Report Released Date/Time: Aug 17, 2024 12:32 PM Reporting Lab: [facility] [place] [facility] [address] [address] Performing Lab: [facility] [address] [address] CHOLESTEROL 131 mg/dL TRIGLYCERIDE 156 mg/dL H 0-150 LDL calculated 67 mg/dL 0-129 CHOL/HDL 4.0 HDL CHOLESTEROL 33 mg/dL L 40-60 Aug 31, 2024 07:57 AM [facility] LIVER FUNCTION Specimen Type: SERUM No comment entered. Ordering Provider: KIKE PIMENTEL Report Released Date/Time: Aug 17, 2024 12:32 PM Reporting Lab: [facility] [address] [address] Performing Lab: [facility] [address] [address] PROTEIN,TOTAL 6.5 g/dL 6.0-8.3 ALBUMIN 3.7 g/dL 3.5-5.0 ALKALINE PHOSPHATASE 64 U/L 40-150 AST 14 U/L 5-34 ALT 12 U/L BILIRUBIN, TOTAL 0.5 mg/dL 0.2-1.2 Aug 31, 2024 07:57 AM [facility] BASIC METABOLIC PANEL (fasting) Specimen Type: SERUM No comment entered. Ordering Provider: KIKE PIMENTEL Report Released Date/Time: Aug 17, 2024 12:32 PM Reporting Lab: [facility] [address] [address] Performing Lab: [address] [address] UREA NITROGEN 16 mg/dL 7-25 GLUCOSE 132 mg/dL H 65-100 SODIUM 140 mmol/L 135-145 POTASSIUM 4.8 mmol/L 3.5-5.0 CHLORIDE 108 mmol/L 100-110 CO2 24 meq/L 20-30 CREATININE, Serum 1.26 mg/dL 0.50-1.40 eGFR(CKD-EPI 2020) 58 mL/min L >60 Aug 31, 2024 07:57 AM [facility] HEMOGLOBIN A1C PANEL Specimen Type: BLOOD Comment: Values obtained from A1C measurements can vary. For atypical A1C assays, a reported value of 7.0 could actually be between 6.72 and 7.28 if measured by a reference method. A reported value of 9.0 could actually be between 8.73 and 9.27. Ref: http://www.ngsp. org/CAPdata.asp Ordering Provider: KIKE PIMENTEL Report Released Date/Time: Aug 17, 2024 12:32 PM Reporting Lab: [address] [address] Performing Lab: [address] [address] HEMOGLOBIN A1C 6.7 H 4.0-5.6 Aug 31, 2024 07:57 AM [facility] VITAMIN B12 Specimen Type: SERUM No comment entered. Ordering Provider: KIKE PIMENTEL Report Released Date/Time: Aug 17, 2024 12:32 PM Reporting Lab: [address] [address] Performing Lab: [address] [address] VITAMIN B12 >2000 pg/mL H 200-900 Aug 31, 2024 07:57 AM [facility] MICROALBUMIN CREATININE RATIO PANEL Specimen Type: URINE No comment entered. Ordering Provider: KIKE PIMENTEL Report Released Date/Time: Aug 17, 2024 12:32 PM Reporting Lab: [address] [address] Performing Lab: [address] [address] MICROALBUMIN/ CREATININE RATIO 13.6 mg/g 0-29.9 MICROALBUMIN, QUANTITATIVE 0.9 mg/dL RR UNAVAIL CREATININE URINE 66.42 mg/dL Aug 31, 2024 07:57 AM [facility] URINALYSIS CLEAN CATCH Specimen Type: URINE Comment: If Glucose = >500 and Ketones are positive, please alert the Physician. Ordering Provider: KIKE PIMENTEL Report Released Date/Time: Aug 17, 2024 12:32 PM Reporting Lab: [address] [address] Performing Lab: [address] [address] UA COLOR Light-Yellow Yellow UA APPEARANCE Clear Clear UA GLUCOSE Normal mg/dL Negative UA KETONES NEGATIVE mg/dL Negative UA BLOOD NEGATIVE mg/dL Negative UA PROTEIN NEGATIVE mg/dL Negative UA NITRITE NEGATIVE mg/dL Negative UA BILIRUBIN NEGATIVE mg/dL Negative UA SPECIFIC GRAVITY 1.014 L 1.016-1.02 2 UA pH 6.5 5.0-9.0 UA UROBILINOGEN Normal mg/dL <2.0 UA LEUKOCYTE NEGATIVE Negative Aug 31, 2024 07:57 AM [facility] CBC AND DIFF (AUTO) Specimen Type: BLOOD No comment entered. Ordering Provider: KIKE PIMENTEL Report Released Date/Time: Aug 17, 2024 12:32 PM Reporting Lab: [facility] [address] [address] Performing Lab: [facility] [address] [address] WBC 7.49 10*3/uL 4.50-11.00 RBC 4.23 10*6/uL 4.23-5.66 HGB 13.3 g/dL 12.8-17 HCT 38.8 L 39.2-50.4 MCV 91.7 fL 82-99 MCHC 34.3 g/dL 30.8-35.1 PLT 185 10*3/uL 140-360 RDW-CV 12.6 12.0-16.0 MONO, ABS 0.73 10*3/uL 0.30-1.10 MCH 31.4 pg 26.2-32.6 NEUT % 67.4 43.7-75.8 LYMPH % 20.0 14.0-42.3 MONO % 9.7 5.1-13.7 EOS % 2.1 0.4-6.8 BASO % 0.4 0.1-2.0 NEUT, ABS 5.04 10*3/uL 2.20-7.60 LYMPH, ABS 1.50 10*3/uL 1.00-3.20 EOS, ABS 0.16 10*3/uL 0.03-0.44 BASO, ABS 0.03 10*3/uL 0.01-0.13 IMMATURE GRAN % 0.4 0.0-0.7 IMMATURE GRAN, ABS 0.03 10*3/uL 0.00-0.06 NRBC % 0.0 0.0-0.0 NRBC, ABS 0.00 10*3/uL 0.00-0.00 Vital Signs: All taken on the encounter date This section contains inpatient and outpatient Vital Signs collected on the date of the Encounter. Date/Time Temperature Pulse Blood Pressure Respiratory Rate SP02 Pain Height Weight Body Mass Index Source Sep 06, 2024 08:41 AM 98 71 126/78 16 96 0 73 242.1 32 [facility] Social History: Smoking Status (Most current) and Tobacco Use (All prior to encounter date) This section includes the most current, and the historical, smoking and tobacco- related health factors from the [place] facility where the Encounter took place. Current Smoking Status This section includes the most current smoking, or tobacco-related health factor, from the [place] facility where the Encounter took place. Date/Time Current Smoking Status Comment [facility] Sep 06, 2024 09:00 AM VA-TOBACCO USE FOR KRYSTYNA CIGARETTES [place] [facility] [place] [place] [facility] Tobacco Use History This section includes a history of the smoking, or tobacco-related health factors, that were collected on or before the date of the Encounter. The data comes from the [place] facility where the Encounter took place. Date/Time Smoking Status/Tobac co Use Comment [facility] Sep 06, 2024 09:00 AM VA-TOBACCO USE FORMER CIGARETTES [place] [facility] [place] [facility] Sep 05, 2023 10:00 AM VA-TOBACCO FORMER USER [facility] [place] [facility] Sep 05, 2023 10:00 AM VA-TOBACCO QUIT 15 YRS OR MORE [place] [facility] [place] [facility] Sep 08, 2022 09:30 AM VA-TOBACCO FORMER USER [facility] [place] [facility] Sep 08, 2022 09:30 AM VA-TOBACCO QUIT 15 YRS OR MORE [facility] [place] [facility] Sep 08, 2021 10:00 AM VA-TOBACCO FORMER USER [facility] [place] [facility] Sep 08, 2021 10:00 AM VA-TOBACCO QUIT 15 YRS OR MORE [facility] [place] [facility] Sep 09, 2020 11:30 AM VA-TOBACCO FORMER USER [facility] [place] [facility] Sep 09, 2020 11:30 AM VA-TOBACCO QUIT 15 YRS OR MORE [facility] [place] [facility] Sep 08, 2018 02:59 PM VA-TOBACCO FORMER USER [facility] [place] [facility] Sep 08, 2018 02:59 PM VA-TOBACCO QUIT 15 YRS OR MORE [facility] [place] [facility] Sep 08, 2018 02:29 PM VA-TOBACCO NEVER USED [facility] [place] [facility] Aug 30, 2017 07:39 AM QUIT TOBACCO USE > 7 YEARS AGO pt quit 35 yrs ago. [facility] [place] [facility] Aug 28, 2016 08:13 AM QUIT TOBACCO USE > 7 YEARS AGO pt states he stop smoking in 1985. [place] [facility] Aug 29, 2015 08:16 AM LIFETIME NON-TOBACCO USER [place] [facility] Aug 29, 2015 08:16 AM QUIT TOBACCO USE > 7 YEARS AGO [place] [facility] Jul 19, 2008 08:56 AM QUIT TOBACCO USE > 7 YEARS AGO [place] [facility] Jul 31, 2007 09:51 AM QUIT TOBACCO USE 1-7 YEARS AGO discontinued 1985 [facility] Jul 31, 2007 09:40 AM QUIT TOBACCO USE > 7 YEARS AGO QUIT 21 YEARS AGO [facility] Encounter Notes: All associated encounter notes This section contains the clinical notes associated to the Encounter. Date/Time Encounter Note(s) Provider Source Sep 06, 2024 09:09 AM PHYSICIAN NOTE: LOCAL TITLE: MD NOTE STANDARD TITLE: PHYSICIAN NOTE DATE OF NOTE: SEP 06, 2024@09:09 ENTRY DATE: SEP 06, 2024@09:09:26 AUTHOR: KIKE PIMENTEL EXP COSIGNER: URGENCY: STATUS: COMPLETED Patient Name: CYNDI PARKS JR VITALS: Patient temperature: 98 F [36.7 C] (09/06/2024 08:41) Blood pressure: 126/78 (09/06/2024 08:41) Patient height: 73 in [185.4 cm] (09/06/2024 08:41) Patient weight: 242.1 lb [109.81 kg] (09/06/2024 08:41) Patient BMI: BMI: 32.0 Patient pulse: 71 (09/06/2024 08:41) Patient respiration: 16 (09/06/2024 08:41) Patient Pulse Oximetry: 96% (09/06/2024 08:41) Pain Ratin (09/06/2024 08:41) Active VA Medications: Active Outpatient Medications (including Supplies): Active Non-VA Medications Status 1) Non-VA ASPIRIN [...] TAB 20MG BY MOUTH AT BEDTIME ACTIVE Remote Medications: No Active Remote 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 Alegria in [place] History of present illness Patient takes inhalers for asbestosis. He feels well today with no complaints. Review satisfactory today Review of systems No chest pain or dyspnea No abdominal pain No trouble urinating No fever or chills No cough Physical examination Well-developed well-nourished male in no acute distress Coronary no murmur Lungs clear No peripheral edema MICROALB/CR RATIO: 13.6 MICROALBUMIN URINE: 0.9 CREATININE URINE: 66.42 HGB A1C (WR): 6.7 H WBC: 7.49 RBC: 4.23 HGB: 13.3 HCT: 38.8 L MCV: 91.7 MCHC: 34.3 RDW: 12.6 PLT: 185 MCH: 31.4 Neut %: 67.4 Lymph %: 20.0 Gentry %: 9.7 Eos %: 2.1 Baso %: 0.4 Neut, Abs: 5.04 Lymph, Abs: 1.50 Gentry, Abs: 0.73 Eos, Abs: 0.16 Baso, Abs: 0.03 Immature Granulocytes %: 0.4 Immature Granulocytes, Abs: 0.03 NRBC%: 0.0 NRBC#: 0.00 Color, Urine (AX 4280): Light-Yellow Appearance, Urine (AX 4280): Clear Glucose, Urine (AX 4280): Normal Ketones, Urine (AX 4280): NEGATIVE Blood, Urine (AX 4280): NEGATIVE Protein, Urine (AX 4280): NEGATIVE Nitrite, Urine (AX 4280): NEGATIVE Bilirubin, Urine (AX 4280): NEGATIVE Specific [place], (AX 4280): 1.014 L pH, Urine ([id number]): 6.5 Urobilinogen, Urine (AX 4280): Normal Leukocyte Esterase, (AX 4280): NEGATIVE VIT. B12 (WROX): >2000 H TSH (Access): 4.06 VITAMIN D, 25-HYDROXY: 34 VITAMIN D, 25-OH, D3: 34 VITAMIN D, 25-OH, D2: <4 GLUCOSE: 132 H UREA NITROGEN: 16 SODIUM: 140 POTASSIUM: 4.8 CHLORIDE: 108 CO2: 24 CHOLESTEROL: 131 PROTEIN,TOTAL: 6.5 ALBUMIN: 3.7 ALKALINE PHOSPHATASE: 64 SGOT: 14 SGPT: 12 TRIGLYCERIDE: 156 H LDL CHOL: 67 CHOL/HDL RATIO: 4.0 HDL: 33 L BILIRUBIN,TOT.: 0.5 CREATININE-EGFR: 1.26 eGFR CKD-EPI 2020: 58 L I discussed above test results with patient Assessment and plan: 1. Asbestosis: Patient is content with present medication regimen Plan: Continue above Follow-up 1 year Patient declined all vaccines today Follow Up Colonoscopy: Colonoscopy is due based on information available to this reminder. Colorectal cancer screening/surveillance will be stopped. Reason: age PAVE Foot Check: A complete foot check was completed at this encounter. VISUAL INSPECTION: Includes inspection for skin breaks, deformity, erythema, trauma, pallor on elevation, dependent rubor, nail deformities, extensive callus and pitting edema. Visual exam results: Normal PEDAL PULSES: Includes palpation of dorsalis and posterior tibial pulses and signs/symptoms of vascular compromise like pain, pallor, parasthesia or paralysis. Present (even if diminished) SENSORY CHECK: Includes 10 gram Monofilament (Council-[place]benezer) test of sensation. Intact (Greater than or equal to 80% of sites checked) Abnormal (Less than 80% of sites checked): Intact LOW-RISK: LOW RISK INFORMATION PROVIDED: 1. Advised patient not to walk barefoot. 2. Explained the importance of daily foot checks for changes. 3. Stressed the importance of daily foot hygiene, including bathing and complete drying. The patient verbalized understanding and was offered a detailed handout on diabetic foot care. Medication Reconciliation: Outpatient: Has the patient been taking medications as documented in the EMLR? YES: The patient has been taking medications as documented in the EMLR. Essential Medication List for Review used to complete this medication reconciliation. INCLUDED IN THIS LIST: Alphabetical list of active outpatient prescriptions dispensed from this [facility] (local) and dispensed from another [place] or [facility] facility (remote) as well as inpatient orders [...] whether with a VA or non-VA provider. Td / Tdap Immunization: The patient declines to receive the recommended dose of Td/Tdap vaccine. Immunization: TD(ADULT) UNSPECIFIED FORMULATION Refusal Reason: PATIENT DECISION Patient refuses all immunization(s) in the Td group Date Documented: 09/06/24 09:14 COVID-19 Immunization: Refused Moderna Monovalent COVID-19 vaccine Immunization: COVID-19 (MODERNA), MRNA, LNP-S, PF, 50 MCG/0.5 ML (AGES 12+ YEARS) Refusal Reason: PATIENT DECISION Patient refuses all immunization(s) in the COVID-19 group Date Documented: 09/06/24 09:14 Herpes Zoster (Shingles) Vaccine: The patient declines to receive the recommended dose of zoster (shingles) vaccine. Immunization: ZOSTER RECOMBINANT Refusal Reason: PATIENT DECISION Patient refuses all immunization(s) in the ZOSTER group Date Documented: 09/06/24 09:15 /es/ Kike Pimentel MD Staff Physician Signed: 09/06/2024 09:15 KIKE PIMENTEL [place] [facility] Sep 06, 2024 08:46 AM PREVENTIVE MEDICINE NURSING NOTE: LOCAL TITLE: CLINICAL REMINDERS/NURSING STANDARD TITLE: PREVENTIVE MEDICINE NURSING NOTE DATE OF NOTE: SEP 06, 2024@08:46 ENTRY DATE: SEP 06, 2024@08:46:39 AUTHOR: TING MCCLURE COSIGNER: URGENCY: STATUS: COMPLETED Falls & Incontinence Screen: Falls Screen: During the past 12 months, did the patient report any falls? 4. No falls within the past year. Incontinence Screen: During the past 12 months, has the patient has any characteristics of incontinence (ability, voiding, leakage, etc.)? No incontinence. Homelessness/Food Insecurity Screen: In the past 2 months, have you been living in stable housing that you own, rent, or stay in as part of a household? Yes - Living in stable housing. Are you worried or concerned that in the next 2 months you may NOT have stable housing that you own, rent, or stay in as part of a household? No - Not worried about housing near future The reports the following: Within the past 12 months, you worried whether your food would run out before you got money to buy more. Never true Within the past 12 months, the food you bought just didn't last and you didn't have money to get more. Never true Tobacco Use Screening: The patient is a former cigarette smoker. Quit smoking GREATER THAN OR EQUAL to 15 years. The patient has never used other types of tobacco. Depression Screening: Perform PHQ-2 A PHQ-2 screen was performed. The score was 0 which is a negative screen for depression. Over the past two weeks, how often have you been bothered by the following problems? 1. Little interest or pleasure in doing things Not at all 2. Feeling down, depressed, or hopeless Not at all Suicide Screen: C-SSRS Screening [place] Suicide Severity Rating Scale (C-SSRS) screener 1. Over the past month, have you wished you were or wished you could go to sleep and not wake up? No 2. Over the past month, have you had any actual thoughts of killing yourself? No 3. Over the past month, have you been thinking about how you might do this? Response not required due to responses to other questions. 4. Over the past month, have you had these thoughts and had some intention of acting on them? Response not required due to responses to other questions. 5. Over the past month, have you started to work out or worked out the details of how to kill yourself? Response not required due to responses to other questions. 6. If yes, at any time in the past month did you intend to carry out this plan? Response not required due to responses to other questions. 7. In your lifetime, have you ever done anything, started to do anything, or prepared to do anything to end your life (for example, collected pills, obtained a gun, gave away valuables, went to the roof but didn't jump)? No 8. If YES, was this within the past 3 months? Response not required due to responses to other questions. Advance Directive Screen MH AD: Patient has an up-to-date Advance Directive at an outside, non-va facility and was asked to forward a copy to his/her clinician. Comment: will get a copy to this [place] Sexual Orientation: The patient thinks of their sexual orientation as: Straight or Heterosexual Alcohol Use Screen (AUDIT-C): Alcohol Screen: SCREEN FOR ALCOHOL (AUDIT-C) An alcohol screening test (AUDIT-C) was negative (score=0). 1. How often did you have a drink containing alcohol in the past year? Consider a drink to be a 12 ounce can or bottle of regular beer, 8 ounces of malt liquor, a 5 ounce glass of table wine, or a 1.5 ounce shot of liquor (like scotch, gin, or vodka). Never 2. How many drinks containing alcohol did you have on a typical day when you were drinking in the past year? Response not required due to responses to other questions. 3. How often did you have six or more drinks on one occasion in the past year? Response not required due to responses to other questions. (Optional) Whole Health Documentation: What matters the most to you? What motivates you to be healthy? (MAP) Response: Life /es/ TING MCCLURE LPN LPN Signed: 09/06/2024 08:50 [facility]
--- OUTSIDE RECORDS SUMMARY | 2024-11-26 10:43 | XMS_ITS ---
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 MEDICARE SUPPLEMEN APRIL MEDEX 2 Sep 26, 2014 [id number] [phone] CYNDI PARKS JR PATIENT [facility] MEDICARE SUPPLEMEN APRIL MEDEX 2 Sep 26, 2014 [id number] CYNDI PARKS JR PATIENT [place] MED[place] SUPPLEMEN APRIL MEDEX 2 Sep 26, 2014 [id number] CYNDI PARKS JR PATIENT BCBS OF [facility] Sep 26, 2008 [id number] Pilar PARKS SPOUSE [place] OF [place] MEDICARE SUPPLEMEN APRIL MEDEX 2 Sep 26, 2014 [id number] CYNDI PARKS JR PATIENT [employer] ([id number]) PRESCRIPT ION PHARM ACY Nov 24, [address] [facility] [id number] [phone] Pilar PARKS SPOUSE MEDICARE (WNR) MEDICARE (M) PART B Apr 26, 2010 PART B [id number] CYNDI PARKS JR PATIENT MEDICARE (WNR) MEDICARE (M) PART B Apr 26, 2010 PART B [id number] CYNDI PARKS JR PATIENT MEDICARE (WNR) MEDICARE (M) PART A May 27, 2009 PART A [id number] CYNDI PARKS JR PATIENT MEDICARE (WNR) MEDICARE (M) PART A May 27, 2009 PART A [id number] CYNDI PARKS JR PATIENT Selected Encounter This section includes the information on record at ID for the Encounter. Date/Time Encounter Type Encounter Description Reason Provider Source May 31, 2024 09:30 AM OFFICE O/P EST HI 40 MIN DERMATOLOGY ICD-10-CM L57.0 Actinic keratosis SANKET CASAREZ [facility] Encounter Template Text not used by ID Assessments - Encounter Diagnoses This section includes the primary and secondary diagnoses documented for the Encounter. Date/Time Primary/Secondary Diagnosis Diagnosis Name Provider Source Jun 14, 2024 10:30 AM PRIMARY Actinic keratosis SANKET CASAREZ [facility] Jun 14, 2024 10:30 AM SECONDARY Neoplasm of uncertain behavior of skin [facility] [place] [facility] Plan of Treatment: Future Appointments (+ 6 months) and Future Tests (+/- 45 days) The Plan of Treatment section includes future care activities for the patient from all ID treatmentfacilities. This section includes future appointments and future orders which are active, pending or scheduled. Future Appointments This section includes appointments that were scheduled to occur 6 months from the date of the Encounter, up to a maximum of 20 appointments. The data comes from all ID treatment facilities. Appointment Date/Time Appointment Type Appointme nt Facility Name Jun 28, 2024 07:30 AM AMBULATORY - MEDICINE [facility] [place] [facility] Jul 17, 2024 09:00 AM AMBULATORY - MEDICINE [facility] [place] [facility] Aug 31, 2024 08:00 AM AMBULATORY - MEDICINE ID C [facility] [place] [facility] Sep 06, 2024 09:00 AM AMBULATORY - MEDICINE ID C [facility] [place] [facility] Oct 25, 2024 08:00 AM AMBULATORY - MEDICINE ID C [facility] [place] [facility] Nov 07, 2024 02:00 PM AMBULATORY - REHAB MEDICIN E ID [facility] [place] [facility] Nov 13, 2024 10:30 AM AMBULATORY - MEDICINE [facility] [place] [facility] Nov 28, 2024 03:00 PM AMBULATORY - RE[facility]AB [facility]ICIN E [facility] Active, Pending, and Scheduled Orders This section includes a listing of several types of active, pending, and scheduled orders, including clinic medications orders, diagnostic test orders, procedure orders and consult orders; where the start date of the order is 45 days before the date of the Encounter or 45 days after the date of theEncounter. The data comes from all ID treatment facilities. Test Date/Time Test Type Test Details Facility Name May 31, 2024 12:00 AM Laboratory - Chemi stry Order SURGICAL PATH ORDER SURG PATH SPEC. UNKNOWN SP [facility] Social History: Smoking Status (Most current) and Tobacco Use (All prior to encounter date) This section includes the most current, and the historical, smoking and tobacco- related health factors from the ID facility where the Encounter took place. Current Smoking Status This section includes the most current smoking, or tobacco-related health factor, from the ID facility where the Encounter took place. Date/Time Current Smoking Status Comment Facil it Sep 05, 2023 10:00 AM ID-TOBACCO FORMER USER [facility] Tobacco Use History This section includes a history of the smoking, or tobacco-related health factors, that were collected on or before the date of the Encounter. The data comes from the ID facility where the Encounter took place. Date/Time Smoking Status/Tobac co Use Comment Facility Sep 05, 2023 10:00 AM ID-TOBACCO QUIT 15 YRS OR MORE [facility] [place] [facility] Sep 08, 2022 09:30 AM VA-TOBACCO FORMER USER ID [facility] [place] [facility] Sep 08, 2022 09:30 AM VA-TOBACCO QUIT 15 YRS OR MORE [facility] [place] [facility] Sep 08, 2021 10:00 AM VA-TOBACCO FORMER USER [facility] [place] [facility] Sep 08, 2021 10:00 AM VA-TOBACCO QUIT 15 YRS OR MORE ID [facility] [place] [facility] Sep 09, 2020 11:30 AM VA-TOBACCO FORMER USER [facility] [place] [facility] Sep 09, 2020 11:30 AM VA-TOBACCO QUIT 15 YRS OR MORE ID [facility] [place] [facility] Sep 08, 2018 02:59 PM VA-TOBACCO FORMER USER ID [facility] [place] [facility] Sep 08, 2018 02:59 PM VA-TOBACCO QUIT 15 YRS OR MORE ID [facility] [place] [facility] Sep 08, 2018 02:29 PM VA-TOBACCO NEVER USED ID [facility] [place] [facility] Aug 30, 2017 07:39 AM QUIT TOBACCO USE > 7 YEARS AGO pt quit 35 yrs ago. [facility] [place] [facility] Aug 28, 2016 08:13 AM QUIT TOBACCO USE > 7 YEARS AGO pt states he stop smoking in 1985. ID [facility] [place] [facility] Aug 29, 2015 08:16 AM LIFETIME NON-TOBACCO USER ID [facility] [place] [facility] Aug 29, 2015 08:16 AM QUIT TOBACCO USE > 7 YEARS AGO ID [facility] [place] [facility] Jul 19, 2008 08:56 AM QUIT TOBACCO USE > 7 YEARS AGO ID [facility] [place] [facility] Jul 31, 2007 09:51 AM QUIT TOBACCO USE 1-7 YEARS AGO discontinued 1985 ID [facility] [place] [facility] Jul 31, 2007 09:40 AM QUIT TOBACCO USE > 7 YEARS AGO QUIT 21 YEARS AGO ID [facility] [place] [facility] Pathology Reports: +/- 30 days of the encounter Pathology Reports For cases when an order for pathology services may have been completed prior to the date of the Encounter, the report list includes the Pathology Reports that were completed up to 30 days before dateof the Encounter. For cases when an order for pathology services may have been completed after the date of the Encounter, the report list also includes the Pathology Reports that were completed up to30 days after date of the Encounter. The data comes from all ID treatment facilities. Date/Time Pathology Report Provider Source Jun 04, 2024 10:40 AM LR SURGICAL PATHOLOGY REPORT: LOCAL TITLE: LR SURGICAL PATHOLOGY REPORT STANDARD TITLE: PATHOLOGY DIAGNOSTIC STUDY REPORT DATE OF NOTE: JUN 04, 2024@10:40:09 ENTRY DATE: JUN 04, 2024@10:40:09 AUTHOR: AVIVA MAGALLON MD EXP COSIGNER: URGENCY: STATUS: COMPLETED $APHDR Reporting Lab: [facility] [CLIA# [id number]] [address] [place] [id number] - - - - - - - - - - - - - - - - - - - - - - - - - - - - - - - - - - - - - - - - MEDICAL RECORD SURGICAL PATHOLOGY - - - - - - - - - - - - - - - - - - - - - - - - - - - - - - - - - - - - - - - - PATHOLOGY REPORT Accession No. [facility] 24 - - - - - - - - - - - - - - - - - - - - - - - - - - - - - - - - - - - - - - - - $TEXT Submitted by: JOSEPH CASAREZ Date obtained: May 31, 2024 12:56 - - - - - - - - - - - - - - - - - - - - - - - - - - - - - - - - - - - - - - - - Specimen (Received May 31, 2024 12:57): SKIN OF L ZYGOMA SKIN OF L HOLINESS SKIN OF L EARLOBE - - - - - - - - - - - - - - - - - - - - - - - - - - - - - - - - - - - - - - - - BRIEF CLINICAL HISTORY: SPECIMEN A: L ZYGOMA 8MM PAPULE WITH CENTERAL HYPERKERATOSIS SPECIMEN B: L HOLINESS 1.5 CM PINK PLAQUE WITH CENTRAL HYPERKERATOSIS SPECIMEN C: L EARLOBE 7MM PINK PAPULE WITH CENTRAL HYPERKERATOSIS - - - - - - - - - - - - - - - - - - - - - - - - - - - - - - - - - - - - - - - - PREOPERATIVE DIAGNOSIS: PREOPERATIVE DIAGNOSIS: SPECIMEN A:SCC SPECIMEN B:SCC SPECIMEN C:SCC - - - - - - - - - - - - - - - - - - - - - - - - - - - - - - - - - - - - - - - - OPERATIVE FINDINGS: - - - - - - - - - - - - - - - - - - - - - - - - - - - - - - - - - - - - - - - - POSTOPERATIVE DIAGNOSIS: Surgeon/physician: JOSEPH CASAREZ =-=-=-=-=-=-=-=-=-=-=-=-=-=- =-=-=-=-=-=-=-=-=-=-=-=-=-=- =-=-=-=-=-=-=-=-=-=-=-= - - - - - - - - - - - - - - - - - - - - - - - - - - - - - - - - - - - - - - - - PATHOLOGY REPORT Accession No. [facility] 24 [id number] - - - - - - - - - - - - - - - - - - - - - - - - - - - - - - - - - - - - - - - - Gross description: The specimen is recieved from [facility], [facility] 24-[address] [facility] 24 7098;A;1;Lazaro PARKS. Received in formalin labeled with the patient's name, social security number, and left zygoma is an unoriented, berger-santiago skin excision measuring 0.4 x 0.3 x 0.1 cm. There is an ill-defined area of granularity measuring 0.3 x 0.2 cm extending to the margin. The margins are inked orange. The specimen is bisected and entirely submitted in cassette A. B. Received in formalin labeled with the patient's name, social security number, and left mormon is an unoriented, berger-santiago skin shave measuring 0.5 x 0.3 x 0.1 cm. There is an ill-defined area of granularity extending to the margins measuring 0.3 x 0.3 cm. The specimen is entirely submitted as follows: B1, tips B2, body cross section C. Received in formalin labeled with the patient's name, social security number, and left earlobe is an unoriented, berger-santiago, granular skin shave measuring 0.4 x 0.3 x 0.1 cm. The margins are inked orange. The specimen is bisected and entirely submitted in cassette C. NICHELLE Villa ([facility]) 06/01/2024 A. Skin, left zygoma: Squamous cell carcinoma, well differentiated. B. Skin, left mormon: Squamous cell carcinoma, well differentiated, extending to the deep tissue margins. C. 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 Note: These changes are non-diagnostic. If the lesion is large and clinical suspicion persist, an additional biopsy is recommended for further evaluation and treatment. Multiple tissue levels examined. CPT codes 44294q0 /kody/ AVIVA MAGALLON MD Board Certified Dermatopathologist Signed Jun 04, 2024@10:40 Performing Laboratory: Surgical Pathology Report Performed By: [facility] [CLIA# [id number]] [address] [place] [phone] $FTR - - - - - - - - - - - - - - - - - - - - - - - - - - - - - - - - - - - - - - - - (End of report) AVIVA MAGALLON MD, MD Date Jun 04, 2024 - - - - - - - - - - - - - - - - - - - - - - - - - - - - - - - - - - - - - - - - CYNDI PARKS JR STANDARD FORM 515 ID:[id number] SEX:M :1945 AGE: 79 LOC:CWM/NO/DERMATOLOGY GROUND OPERATIONS 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 Encounter Notes: All associated encounter notes This section contains the clinical notes associated to the Encounter. Date/Time Encounter Note(s) Provider Source Jun 04, 2024 12:50 PM ADDENDUM: LOCAL TITLE: Addendum STANDARD TITLE: ADDENDUM DATE OF NOTE: JUN 04, 2024@12:50:03 ENTRY DATE: JUN 04, 2024@12:50:03 AUTHOR: JOSEPH CASAREZ EXP COSIGNER: URGENCY: STATUS: COMPLETED DERM PHOTOGRAPHIC DOUBLE - Please notify , that as expected and as previously discussed, the lesions on his FACE returned as a squamous cell skin cancer and requires Mohs surgery. A CC DERM consult was placed on his behalf. He will be contacted for scheduling. If he does not hear about scheduling in 2-3 weeks please advise him to reach out to the clinic and inquire. LAB SURGICAL PATHOLOGY Collected: 05/31/2024 12:56Acc:[facility] Surgeon/Physician: JOSEPH CASAREZ Specimen: SKIN OF L ZYGOMA SKIN OF L HOLINESS SKIN OF L EARLOBE Brief Clinical Hx: SPECIMEN A: L ZYGOMA 8MM PAPULE WITH CENTERAL HYPERKERATOSIS SPECIMEN B: L HOLINESS 1.5 CM PINK PLAQUE WITH CENTRAL HYPERKERATOSIS SPECIMEN C: L EARLOBE 7MM PINK PAPULE WITH CENTRAL HYPERKERATOSIS Gross Description: The specimen is recieved from [facility] 24- [facility] 24 7098;A;1;Lazaro PARKS. Received in formalin labeled with the patient's name, social security number, and left zygoma is an unoriented, berger-santiago skin excision measuring 0.4 x 0.3 x 0.1 cm. There is an ill-defined area of granularity measuring 0.3 x 0.2 cm extending to the margin. The margins are inked orange. The specimen is bisected and entirely submitted in cassette A. B. Received in formalin labeled with the patient's name, social security number, and left mormon is an unoriented, berger-santiago skin shave measuring 0.5 x 0.3 x 0.1 cm. There is an ill-defined area of granularity extending to the margins measuring 0.3 x 0.3 cm. The specimen is entirely submitted as follows: B1, tips B2, body cross section C. Received in formalin labeled with the patient's name, social security number, and left earlobe is an unoriented, berger-santiago, granular skin shave measuring 0.4 x 0.3 x 0.1 cm. The margins are inked orange. The specimen is bisected and entirely submitted in cassette C. NICHELLE Villa ([facility]) 06/01/2024 Microscopic Exam: A. Skin, left zygoma: Squamous cell carcinoma, well differentiated. B. Skin, left mormon: Squamous cell carcinoma, well differentiated, extending to the deep tissue margins. C. 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 Note: These changes are non-diagnostic. If the lesion is large and clinical suspicion persist, an additional biopsy is recommended for further evaluation and treatment. Multiple tissue levels examined. CPT codes [id number] /es/ JOSEPH CASAREZ DNP, AUTOMATION QA LEAD-C NURSE PRACTITIONER Signed: 06/04/2024 12:50 Receipt Acknowledged By: 06/14/2024 15:14 /es/ AUDREY BRICE LPN PHOTOGRAPHIC DOUBLE --- Original Document --- 05/31/24 DERMATOLOGY CLINIC NOTE: MAY 31, 2024 CYNDI PARKS JR Apr 79 PATIENT PHONE - Patient here for FOLLOW UP CHIEF COMPLAINT: h/o invasive SCC, AKs HPI: Reviewed records from last Dermatology visit: 02/16/24; [place] s/p 5FU to L superior helix, L mormon and zygoma, R pre-auricular area, bilat dorsal hands and NUB to L nasal tip (DDx BCC vs NMSC) s/p 5FU. He reports that he used the 5FU with the expected response. He reports L mormon and L ear lobe have new tender lesions. denies any other new/changing/bleeding/non-heali ng lesions. REVIEW OF SYSTEMS: Constitutional-neg Skin/Hair/Nails-see HPI Derm Hx: -SCC, L cheek s/p Mohs at [facility] 11/2022 s/p radiation (03/14/23 - 04/28/23) at [facility] RAD ONC r/t perineural invasion -AKs s/p LN2 and 5FU Family Hx: Denies known h/o MM PastMedHx: Reviewed. History of Sun Exposure/Sunburns: Yes Reviewed [facility] RAD ONC Notes, visit 04/28/23. [...] vertical surgical scar, no abnormal pigmentation noted -superior nasal dorsum with thin erythematous gritty plaque -NUBS: -A. L zygoma 8mm pink papule with central hyperkeratosis -B. L mormon with 1.5 cm pink plaque with central hyperkeratosis -C. L ear lobe with 7mm pink papule with central hyperkeatosis Diagnosis/Plan: #Actinic Keratosis: -Location: superior nasal dorsum -Patient education provided on actinic damage and the risk of squamous cell carcinoma. -Treatment options discussed: LN2 vs 5FU vs Imiquimod - agreeable to 5FU. -Proper use of Efudex (fluorouracil/5FU) 5% including application of a thin layer [...] questions or concerns. #Neoplasm of Uncertain Behavior -Sites: A. L zygoma, B. L mormon, C. L earlobe -Biopsy advised; DDx: A. SCC B. SCC C. SCC ##Shave Biopsy Procedure: -The purpose, benefits, risks (infection, bleeding and scar) and alternatives of the procedures were discussed. -Verbal informed consent was obtained. Patient consents to pictures to be taken for documentation. -The surgical sites were confirmed with the patient. Time out was implemented to confirm patient's name, date of , location of the lesion and indication for the biopsy with SAMMI Brice. -Pre-Procedure Pain: 0 -Biopsy sites were swabbed with alcohol. -Anesthesia achieved by local infiltration of lesion with 1% lidocaine with epinephrine 1:100,000. -A tangential shave specimen was taken from each site to the depth of the dermis using a flexible dermablade. -Hemostasis was achieved with aluminum chloride (Drysol). -Routine wound care was performed and a dressing was applied using Vaseline and a Bandage. -The patient tolerated the procedures well without complications. -Post-Procedure Pain: 0 -Wound care was reviewed and a printed copy was given to the patient. -Plan of care to be discussed once biopsy results return. -Discussed with that if results are benign (non-cancerous), a letter will be mailed indicating this and that no further treatment is required. -Advised that if they do not receive a letter or a phone call within 2-3 weeks, to reach out to clinic and inquire on biopsy results. -Discussed at length with that lesions are likely SCC and would require Mohs surgery. He is in agreement. Prefers not to travel to ID facility with this service due to length of travel. Requests CC_DERM to stay local for treatment. -CC DERM consult placed now for Mohs per request [prior to pathology] RTC 3-6m, sooner PRN * Abrams educated to RTC meghan if any new, changing, symptomatic lesions. * Education on sun protection and avoidance strategies was provided. * Differential diagnosis, prescription options and risks/benefits were discussed with the patient, who consented to treatment plan. * Abrams consented to photography for documentation if indicated. [...] and lab ordering Total estimated time = 50 min -- Medication Reconciliation: Outpatient: Has the [...] Remote Allergy/ADR Data available for this patient [facility] [place] [facility] No Known Allergies Med Recon NoGlossary (Tool [...] the patient into personal health records (i.e. Digital Assent) are NOT included in this list. Non-VA medications documented outside this VA, remote inpatient orders (regardless of status) and [...] TIMES DAILY NEEDED FOR DRY EYE Rx# [id number] Last Released: 07/18/23 Qty/Days Supply: Rx Expiration [...] FOUR TIMES DAILY NEEDED FOR BREATHING Rx# [id number] Last Released: 09/12/23 Qty/Days Supply: Rx Expiration [...] Non-VA pharmacy. SUPPLIES /kody/ JOSEPH CASAREZ DNP, AUTOMATION QA LEAD-C NURSE PRACTITIONER Signed: 06/04/2024 07:29 JOSEPH CASAREZ [facility] [place] [facility] May 31, 2024 09:37 AM DERMATOLOGY OUTPATIENT NOTE: LOCAL TITLE: DERMATOLOGY CLINIC NOTE STANDARD TITLE: DERMATOLOGY OUTPATIENT NOTE DATE OF NOTE: MAY 31, 2024@09:37 ENTRY DATE: MAY 31, 2024@09:37:18 AUTHOR: JOSEPH CASAREZ EXP COSIGNER: URGENCY: STATUS: COMPLETED DERMATOLOGY CLINIC NOTE Has ADDENDA MAY 31, 2024 CYNDI PARKS JR Apr 79 PATIENT PHONE - Patient here for FOLLOW UP CHIEF COMPLAINT: h/o invasive SCC, AKs HPI: Reviewed records from last Dermatology visit: 02/16/24; [place] s/p 5FU to L superior helix, L mormon and zygoma, R pre-auricular area, bilat dorsal hands and NUB to L nasal tip (DDx BCC vs NMSC) s/p 5FU. He reports that he used the 5FU with the expected response. He reports L mormon and L ear lobe have new tender lesions. Abrams denies any other new/changing/bleeding/non-heali ng lesions. REVIEW OF SYSTEMS: Constitutional-neg Skin/Hair/Nails-see HPI Derm Hx: -SCC, L cheek s/p Mohs at [facility] 11/2022 s/p radiation (03/14/23 - 04/28/23) at [facility] RAD ONC r/t perineural invasion -AKs s/p LN2 and 5FU Family Hx: Denies known h/o MM PastMedHx: Reviewed. History of Sun Exposure/Sunburns: Yes Reviewed [facility] RAD ONC Notes, visit 04/28/23. [...] vertical surgical scar, no abnormal pigmentation noted -superior nasal dorsum with thin erythematous gritty plaque -NUBS: -A. L zygoma 8mm pink papule with central hyperkeratosis -B. L mormon with 1.5 cm pink plaque with central hyperkeratosis -C. L ear lobe with 7mm pink papule with central hyperkeatosis Diagnosis/Plan: #Actinic Keratosis: -Location: superior nasal dorsum -Patient education provided on actinic damage and the risk of squamous cell carcinoma. -Treatment options discussed: LN2 vs 5FU vs Imiquimod -Abrams agreeable to 5FU. -Proper use of Efudex (fluorouracil/5FU) 5% including application of a thin layer [...] questions or concerns. #Neoplasm of Uncertain Behavior -Sites: A. L zygoma, B. L mormon, C. L earlobe -Biopsy advised; DDx: A. SCC B. SCC C. SCC ##Shave Biopsy Procedure: -The purpose, benefits, risks (infection, bleeding and scar) and alternatives of the procedures were discussed. -Verbal informed consent was obtained. Patient consents to pictures to be taken for documentation. -The surgical sites were confirmed with the patient. Time out was implemented to confirm patient's name, date of , location of the lesion and indication for the biopsy with SAMMI Brice. -Pre-Procedure Pain: 0 -Biopsy sites were swabbed with alcohol. -Anesthesia achieved by local infiltration of lesion with 1% lidocaine with epinephrine 1:100,000. -A tangential shave specimen was taken from each site to the depth of the dermis using a flexible dermablade. -Hemostasis was achieved with aluminum chloride (Drysol). -Routine wound care was performed and a dressing was applied using Vaseline and a Bandage. -The patient tolerated the procedures well without complications. -Post-Procedure Pain: 0 -Wound care was reviewed and a printed copy was given to the patient. -Plan of care to be discussed once biopsy results return. -Discussed with that if results are benign (non-cancerous), a letter will be mailed indicating this and that no further treatment is required. -Advised that if they do not receive a letter or a phone call within 2-3 weeks, to reach out to clinic and inquire on biopsy results. -Discussed at length with that lesions are likely SCC and would require Mohs surgery. He is in agreement. Prefers not to travel to ID facility with this service due to length of travel. Requests CC_DERM to stay local for treatment. -CC DERM consult placed now for Mohs per request [prior to pathology] RTC 3-6m, sooner PRN * educated to RTC meghan if any new, changing, symptomatic lesions. * Education on sun protection and avoidance strategies was provided. * Differential diagnosis, prescription options and risks/benefits were discussed with the patient, who consented to treatment plan. * Abrams consented to photography for documentation if indicated. [...] and lab ordering Total estimated time = 50 min -- Medication Reconciliation: Outpatient: Has the patient been taking medications as documented in the EMLR? YES: The patient has been taking medications as documented in the EMLR. Essential Medication List for Review used to complete this medication reconciliation. INCLUDED IN THIS LIST: Alphabetical list of active outpatient prescriptions dispensed from this VA (local) and dispensed from another ID or DoD facility (remote) as well as [...] Remote Allergy/ADR Data available for this patient [place] [facility] [place] [facility] No Known Allergies Med Recon NoGlossary (Tool [...] the patient into personal health records (i.e. Digital Assent) are NOT included in this list. Non-VA medications documented outside this VA, remote inpatient orders (regardless of status) and [...] TIMES DAILY NEEDED FOR DRY EYE Rx# [id number] Last Released: 07/18/23 Qty/Days Supply: Rx Expiration Date: 07/13/24 Refills Remainin Indication: FOR DRY EYE Non-VA CHOLECALCIF 50MCG (D3-2,000UNIT) TAB TAKE ONE TABLET BY MOUTH daily Patient wants to buy from Non-VA pharmacy. Medication prescribed by Non-VA provider. Non-VA CYANOCOBALAMIN 1000MCG TAB TAKE ONE TABLET BY MOUTH ONCE DAILY Patient wants to buy from Non-ID pharmacy. Medication prescribed by Non-VA provider. Non-VA EZETIMIBE 10MG TAB TAKE ONE TABLET BY MOUTH EVERY DAY Medication prescribed by Non-VA provider. Non-VA HYDROCHLOROTHIAZIDE 25MG TAB TAKE ONE TABLET BY MOUTH EVERY DAY Medication prescribed by Non-VA provider. OUTPT IPRATROPIUM BROMIDE 0.02% INH SOLN 2.5ML (Status = Active) INHALE 1 AMPULE (2.5 MLS) VIA UPDRAFT FOUR TIMES DAILY NEEDED FOR BREATHING Rx# [id number] Last Released: 09/12/23 Qty/Days Supply: Rx Expiration [...] Non-VA pharmacy. SUPPLIES /kody/ JOSEPH CASAREZ DNP, AUTOMATION QA LEAD-C NURSE PRACTITIONER Signed: 06/04/2024 07:29 06/04/2024 ADDENDUM STATUS: COMPLETED DERM PHOTOGRAPHIC DOUBLE - Please notify , that as expected and as previously discussed, the lesions on his FACE returned as a squamous cell skin cancer and requires Mohs surgery. A CC DERM consult was placed on his behalf. He will be contacted for scheduling. If he does not hear about scheduling in 2-3 weeks please advise him to reach out to the clinic and inquire. LAB SURGICAL PATHOLOGY Collected: 05/31/2024 12:56Acc:[facility] 24 Surgeon/Physician: JOSEPH CASAREZ Specimen: SKIN OF L ZYGOMA SKIN OF L HOLINESS SKIN OF L EARLOBE Brief Clinical Hx: SP 24 [id number] SPECIMEN A: L ZYGOMA 8MM PAPULE WITH CENTERAL HYPERKERATOSIS SPECIMEN B: L HOLINESS 1.5 CM PINK PLAQUE WITH CENTRAL HYPERKERATOSIS SPECIMEN C: L EARLOBE 7MM PINK PAPULE WITH CENTRAL HYPERKERATOSIS Gross Description: The specimen is recie[facility] 24[address] [facility] 24 [id number];A;1;KASEY,Lazaro A. Received in formalin labeled with the patient's name, social security number, and left zygoma is an unoriented, berger-santiago skin excision measuring 0.4 x 0.3 x 0.1 cm. There is an ill-defined area of granularity measuring 0.3 x 0.2 cm extending to the margin. The margins are inked orange. The specimen is bisected and entirely submitted in cassette A. B. Received in formalin labeled with the patient's name, social security number, and left mormon is an unoriented, berger-santiago skin shave measuring 0.5 x 0.3 x 0.1 cm. There is an ill-defined area of granularity extending to the margins measuring 0.3 x 0.3 cm. The specimen is entirely submitted as follows: B1, tips B2, body cross section C. Received in formalin labeled with the patient's name, social security number, and left earlobe is an unoriented, berger-santiago, granular skin shave measuring 0.4 x 0.3 x 0.1 cm. The margins are inked orange. The specimen is bisected and entirely submitted in cassette C. NICHELLE Villa (ASCP) 06/01/2024 Microscopic Exam: A. Skin, left zygoma: Squamous cell carcinoma, well differentiated. B. Skin, left mormon: Squamous cell carcinoma, well differentiated, extending to the deep tissue margins. C. 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 Note: These changes are non-diagnostic. If the lesion is large and clinical suspicion persist, an additional biopsy is recommended for further evaluation and treatment. Multiple tissue levels examined. CPT codes 98060c7 /es/ JOSEPH CASAREZ DNP, AUTOMATION QA LEAD-C NURSE PRACTITIONER Signed: 06/04/2024 12:50 Receipt Acknowledged By: 06/14/2024 15:14 /es/ AUDREY BRICE LPN LPN 06/14/2024 ADDENDUM STATUS: COMPLETED notified of results. He has an appt in June with SARAH PAL /kody/ AUDREY BRICE LPN LPN Signed: 06/14/2024 15:15 JOSEPH CASAREZ [facility]L [facility]
--- OUTSIDE RECORDS SUMMARY | 2024-11-26 10:43 | XMS_ITS | Encounter Summary ---
Author Name [place] Address [address] [place] [id number] Care Team Providers Care Communications Administrator Name Role Phone GENESIS ESCOBEDO Primary Care [...] Ann's Name Patient's Relationship to Policy Ann [facility] MEDICARE SUPPLEMEN APRIL MEDEX 2 Sep 26, 2014 [id number] CYNDI PARKS JR PATIENT [facility] MEDICARE SUPPLEMEN APRIL MEDEX 2 Sep 26, 2014 [id number] [phone] CYNDI PARKS JR PATIENT [facility] MEDICARE SUPPLEMEN APRIL MEDEX 2 Sep 26, 2014 [id number] [phone] CYNDI PARKS JR PATIENT BCBS OF [facility] Sep 26, 2008 [id number] Pilar PARKS SPOUSE [place] OF [place] ([place] MEDICARE SUPPLEMEN APRIL MEDEX 2 Sep 26, 2014 [id number] CYNDI PARKS JR PATIENT EXPRESS SCRIPTS ([id number]) PRESCRIPT ION PHARM ACY Nov 24, 2008 [facility] [id number] [phone] Pilar PARKS SPOUSE MEDICARE (WNR) MEDICARE (M) PART B Apr 26, 2010 PART B [id number] CYNDI PARKS JR PATIENT MEDICARE (WNR) MEDICARE (M) PART B Apr 26, 2010 PART B [id number] CYNDI PARKS JR PATIENT MEDICARE (WNR) MEDICARE (M) PART A May 27, 2009 PART A [id number] 06 CYNDI PARKS JR PATIENT MEDICARE (WNR) MEDICARE (M) PART A May 27, 2009 PART A [id number] CYNDI PARKS JR PATIENT Selected Encounter This section includes the information on record at [place] for the Encounter. Date/Time Encounter Type Encounter Description Reason Provider Source Nov 13, 2024 10:30 AM COMPRE OPH EXAM EST PT 1/> OPTOMETRY ICD-10-CM H25.813 Combined forms of age-related cataract, bilateral JACKELIN MORRIS Suresh Encounter Template Text not used by [place] Assessments - Encounter Diagnoses This section includes the primary and secondary diagnoses documented for the Encounter. Date/Time Primary/Secondary Diagnosis Diagnosis Name Provider Source Nov 13, 2024 11:03 AM PRIMARY Combined forms of age-related cataract, bilateral RICO MORRIS [facility] Nov 13, 2024 11:03 AM SECONDARY Open angle with borderline findings, low risk, bilateral RICO [facility]ORRIS [facility] Nov 13, 2024 11:03 AM SECONDARY Type 2 diabetes mellitus without complications RICO MORRIS [facility] Plan of Treatment: Future Appointments (+ 6 months) and Future Tests (+/- 45 days) The Plan of Treatment section includes future care activities for the patient from all [place] treatmentfacilities. This section includes future appointments and future orders which are active, pending or scheduled. Future Appointments This section includes appointments that were scheduled to occur 6 months from the date of the Encounter, up to a maximum of 20 appointments. The data comes from all [place] treatment facilities. Appointment Date/Time Appointment Type Appointme nt Facility Name Nov 28, 2024 03:00 PM AMBULATORY - REH[facility] MEDICIN E [facility] [place] [facility] February 06, 2025 07:30 AM AMBULATORY - MEDICINE [facility] [place] [facility] Social History: Smoking Status (Most current) and Tobacco Use (All prior to encounter date) This section includes the most current, and the historical, smoking and tobacco- related health factors from the [place] facility where the Encounter took place. Current Smoking Status This section includes the most current smoking, or tobacco-related health factor, from the [place] facility where the Encounter took place. Date/Time Current Smoking Status Comment [facility] Sep 06, 2024 09:00 AM VA-TOBACCO USE FOR KRYSTYNA CIGARETTES [place] [facility] [place] [facility] Tobacco Use History This section includes a history of the smoking, or tobacco-related health factors, that were collected on or before the date of the Encounter. The data comes from the [place] facility where the Encounter took place. Date/Time Smoking Status/Tobac co Use Comment Facility Sep 06, 2024 09:00 AM VA-TOBACCO USE FORMER CIGARETTES [facility] [place] [facility] Sep 05, 2023 10:00 AM VA-TOBACCO FORMER USER [facility] [place] [facility] Sep 05, 2023 10:00 AM VA-TOBACCO QUIT 15 YRS OR MORE [facility] [place] [facility] Sep 08, 2022 09:30 AM VA-TOBACCO FORMER USER [facility] [place] [facility] Sep 08, 2022 09:30 AM VA-TOBACCO QUIT 15 YRS OR MORE [facility] [place] [facility] Sep 08, 2021 10:00 AM VA-TOBACCO FORMER USER [facility] [place] [facility] Sep 08, 2021 10:00 AM VA-TOBACCO QUIT 15 YRS OR MORE [facility] [place] [facility] Sep 09, 2020 11:30 AM VA-TOBACCO FORMER USER [facility] [place] [facility] Sep 09, 2020 11:30 AM VA-TOBACCO QUIT 15 YRS OR MORE [facility] [place] [facility] Sep 08, 2018 02:59 PM [facility] Sep 08, 2018 02:59 PM VA-TOBACCO QUIT 15 YRS OR MORE [facility] Sep 08, 2018 02:29 PM VA-TOBACCO NEVER USED [facility] Aug 30, 2017 07:39 AM QUIT TOBACCO USE > 7 YEARS AGO pt quit 35 yrs ago. [facility] [place] [facility] Aug 28, 2016 08:13 AM QUIT TOBACCO USE > 7 YEARS AGO pt states he stop smoking in 1985. [facility] [place] [facility] Aug 29, 2015 08:16 AM LIFETIME NON-TOBACCO USER [facility] Aug 29, 2015 08:16 AM QUIT TOBACCO USE > 7 YEARS AGO [facility] [place] [facility] Jul 19, 2008 08:56 AM QUIT TOBACCO USE > 7 YEARS AGO [facility] [place] [facility] Jul 31, 2007 09:51 AM QUIT TOBACCO USE 1-7 YEARS AGO discontinued 1985 [facility] Jul 31, 2007 09:40 AM QUIT TOBACCO USE > 7 YEARS AGO QUIT [facility] Encounter Notes: All associated encounter notes This section contains the clinical notes associated to the Encounter. Date/Time Encounter Note(s) Provider Source Nov 13, 2024 09:26 AM OPTOMETRY NOTE: LOCAL TITLE: OPTOMETRY NOTE(T) STANDARD TITLE: OPTOMETRY NOTE DATE OF NOTE: NOV 13, 2024@09:26 ENTRY DATE: NOV 13, 2024@09:26:20 AUTHOR: JACKELIN MORRIS EXP COSIGNER: URGENCY: STATUS: COMPLETED Active Problems: Active Problem Squamous cell carcinoma C80.1 10/25/2024 JOSEPH CASAREZ Anemia (SCT [id number]) D64.9, Onset 09/05/2023 GENESIS ESCOBEDO Raised TSH [...] Onse 07/31/2007 GENESIS ESCOBEDO Hyperlipidemia 272.4, Onset 07/31/2007 GENESIS ESCOBEDO Essential hypertension 401.9, Onset 07/31/2007 GENESIS ESCOBEDO Personal History of Tobacco Use V15 07/31/2007 GENESIS ESCOBEDO Medications (VA): Active Outpatient Medications (including Supplies): Active Outpatient Medications Status = 1) CARBOXYMETHYLCELLULOSE NA 0.5% OPH SOLN INSTILL 1 DROP INTO ACTIVE EACH EYE FOUR TIMES DAILY NEEDED Indication: FOR DRY EYE Active Non-VA Medications Status = 1) Non-VA ASPIRIN 325MG EC TAB 325MG [...] MOUTH AT BEDTIME ACTIVE 12 Total Medications Allergies: Patient has answered NKA S: 79-year-old male is in for comprehensive exam with dilated fundus exam. He has a history of diabetes with larger asymmetric cupping which has remained stable over the years. He denies any eye injury or disease since his last exam. He wears PAL and sunglasses secondary to glare sensitivity. AIDEN: 02/10/2024 (-) Pain: (-) VIDES: (-) Diplopia: (-) Flashes: (-) Floaters: (-) Amaurosis Fugax/Tia's: (-) Eye Injury: (-) Eye Surgery: (-) TBI Last HbA1c: 08/31/2024 6.7% O: Visual acuity with current correction was 20/25 - OD and 20/25+ OS. Pupils were equal and round and reactive to light with no afferent defect. Extraocular muscles were intact and facial confrontation sierra were full. Lids and lashes were clear both eyes with dermatochalasis. Corneas and conjunctiva were clear both eyes. Anterior chambers were deep clear and quiet with open angles. Iris was flat both eyes without neovascularization. Grade 2 + nuclear sclerotic cataracts and grade 2 cortical cataracts were seen OU. Current Rx with last BCVA: OD: -0.75 -0.50 x097 20/20 OS: -1.50 -0.75 x083 20/20 Add: +2.50 Refraction: OD: - 0.25 - 0.75 x097 20/20-2 OS: -1.50 - 1.00 x0 84 20/20 - Add: +2.50 Intraocular pressures at 10:30 AM were 15 mmHg OU. Previous pachymetry: OD: 556 OS: 550 Dilating Drops: 1GTT 1 % Tropicamide OU & 1GTT 2.5% Phenylephrine OU (Pt. ed. on side effects, dilation warning given and verbal consent obtained) Patient advised not to drive if they feel they have any symptoms which could affect their ability to drive safely. Patient advised not to engage in any activities which could put themselves or others at risk if they feel they have any symptoms which could affect their ability to perform those activities safely. Vitreous was clear OU. Approximately 65% horizontal and vertical cupping was seen OU with healthy rims and margins and no notches, hemorrhages, or neovascularization. Normal pigmentary architecture of the macula was seen without lipid or edema. A two third artery to vein ratio was seen OU. Retinal peripheries were intact in all quadrants OU. No diabetic retinopathy was seen OU. A: Diabetes mellitus without retinopathy or macular edema. Combined cataracts OU, not visually significant. Low risk open-angle glaucoma suspect. No PDS or PXE. No family history. Pressures are normotensive. Moderate cupping with large optic nerves. Likely physiological. Refractive error/presbyopia. P: Ordered new PAL. And adjusted his old ones because they are crooked on his face. The patient will return in 12 months or sooner if any problems arise. Keenes Education: After discussion and answering all 's questions, demonstrated and verbalized understanding of diagnosis and [...] this VA (local) and dispensed from another [place] or [place] facility (remote) as well as [...] VA or non-VA provider. /kody/ JACKELIN MORRIS OD STAFF ELECTRONICS ASSEMBLER Signed: 11/13/2024 11:03 JACKELIN MORRIS [place] [facility]
--- OUTSIDE RECORDS SUMMARY | 2024-11-26 10:44 | XMS_ITS | Encounter Summary ---
Author Name [place] Address [address] [place] [address] Care Team Providers Care Kitchen And Bath Designer Name Role Phone GENESIS ESCOBEDO Primary Care [...] Ann's Name Patient's Relationship to Policy Ann [facility] MEDICARE SUPPLEMEN APRIL MEDEX 2 Sep 26, 2014 [id number] CYNDI PARKS JR PATIENT [facility] MEDICARE SUPPLEMEN APRIL MEDEX 2 Sep 26, 2014 [id number] [phone] CYNDI PARKS JR PATIENT [facility] MEDICARE SUPPLEMEN APRIL MEDEX 2 Sep 26, 2014 [id number] CYNDI PARKS JR PATIENT BCBS OF [facility] DANIEL GAMIGUEL [facility] Sep 26, 2008 [id number] Pilar PARKS SPOUSE BC[place] OF [place] (BLU[place]ARD) MEDICARE SUPPLEMEN APRIL MEDEX 2 Sep 26, 2014 [id number] CYNDI PARKS JR PATIENT [employer] S[employer] ([id number]) PRESCRIPT ION PHARM ACY Nov 24, [address] [facility] [id number] Pilar PARKS SPOUSE MEDICARE (WNR) MEDICARE (M) PART B Apr 26, 2010 PART B [id number] 06 CYNDI PARKS JR PATIENT MEDICARE (WNR) MEDICARE (M) PART B Apr 26, 2010 PART B [id number] 06 CYNDI PARKS JR PATIENT MEDICARE (WNR) MEDICARE (M) PART A May 27, 2009 PART A [id number] 06 CYNDI PARKS JR PATIENT MEDICARE (WNR) MEDICARE (M) PART A May 27, 2009 PART A [id number] 06 CYNDI PARKS JR PATIENT Selected Encounter This section includes the information on record at [place] for the Encounter. Date/Time Encounter Type Encounter Description Reason Provider Source Nov 13, 2024 11:27 AM FIT SPECTACLES MULTIFOCAL OPTOMETRY ICD-10-CM Z46.0 Encounter for fit/adjst of spectacles and contact lenses JACKELIN MORRIS Encounter Template Text not used by [place] Assessments - Encounter Diagnoses This section includes the primary and secondary diagnoses documented for the Encounter. Date/Time Primary/Secondary Diagnosis Diagnosis Name Provider Source Nov 13, 2024 11:27 AM PRIMARY Encounter for fit/adjst of spectacles and contact lenses MAIKOL NOYOLA [facility] Plan of Treatment: Future Appointments (+ 6 months) and Future Tests (+/- 45 days) The Plan of Treatment section includes future care activities for the patient from all [place] treatmentfacilities. This section includes future appointments and future orders which are active, pending or scheduled. Future Appointments This section includes appointments that were scheduled to occur 6 months from the date of the Encounter, up to a maximum of 20 appointments. The data comes from all [place] treatment facilities. Appointment Date/Time Appointment Type Appointme nt Facility Name Nov 28, 2024 03:00 PM AMBULATORY - [facility] E [facility] February 06, 2025 07:30 AM AMBULATORY - MEDICINE [facility] [place] [facility] Social History: Smoking Status (Most current) and Tobacco Use (All prior to encounter date) This section includes the most current, and the historical, smoking and tobacco- related health factors from the [place] facility where the Encounter took place. Current Smoking Status This section includes the most current smoking, or tobacco-related health factor, from the [place] facility where the Encounter took place. Date/Time Current Smoking Status Comment [facility] it Sep 06, 2024 09:00 AM VA-TOBACCO USE FOR KRYSTYNA CIGARETTES [place] [facility] [place] [facility] Tobacco Use History This section includes a history of the smoking, or tobacco-related health factors, that were collected on or before the date of the Encounter. The data comes from the [place] facility where the Encounter took place. Date/Time Smoking Status/Tobac co Use Comment [facility] Sep 06, 2024 09:00 AM VA-TOBACCO USE FORMER CIGARETTES [facility] [place] [facility] Sep 05, 2023 10:00 AM VA-TOBACCO FORMER USER [facility] [place] [facility] Sep 05, 2023 10:00 AM VA-TOBACCO QUIT 15 YRS OR MORE [facility] [place] [facility] Sep 08, 2022 09:30 AM VA-TOBACCO FORMER USER [facility] [place] [facility] Sep 08, 2022 09:30 AM VA-TOBACCO QUIT 15 YRS OR MORE [facility] [place] [facility] Sep 08, 2021 10:00 AM VA-TOBACCO FORMER USER [facility] [place] [facility] Sep 08, 2021 10:00 AM VA-TOBACCO QUIT 15 YRS OR MORE [facility] [place] [facility] Sep 09, 2020 11:30 AM VA-TOBACCO FORMER USER [facility] [place] [facility] Sep 09, 2020 11:30 AM VA-TOBACCO QUIT 15 YRS OR MORE [facility] [place] [facility] Sep 08, 2018 02:59 PM VA-TOBACCO FORMER USER [facility] [place] [facility] Sep 08, 2018 02:59 PM VA-TOBACCO QUIT 15 YRS OR MORE [facility] [place] [facility] Sep 08, 2018 02:29 PM VA-TOBACCO NEVER USED [facility] [place] [facility] Aug 30, 2017 07:39 AM QUIT TOBACCO USE > 7 YEARS AGO pt quit 35 yrs ago. [facility] [place] [facility] Aug 28, 2016 08:13 AM QUIT TOBACCO USE > 7 YEARS AGO pt states he stop smoking in 1985. [facility] Aug 29, 2015 08:16 AM LIFETIME NON-TOBACCO USER [facility] Aug 29, 2015 08:16 AM QUIT TOBACCO USE > 7 YEARS AGO [facility] Jul 19, 2008 08:56 AM QUIT TOBACCO USE > 7 YEARS AGO [facility]SN [facility] Jul 31, 2007 09:51 AM QUIT TOBACCO USE 1-7 YEARS AGO discontinued 1985 [facility] Jul 31, 2007 09:40 AM QUIT TOBACCO USE > 7 YEARS AGO QUIT 21 YEARS AGO [facility] Encounter Notes: All associated encounter notes This section contains the clinical notes associated to the Encounter. Date/Time Encounter Note(s) Provider Source Nov 13, 2024 11:27 AM OPTOMETRY NOTE: LOCAL TITLE: OPTOMETRY NOTE STANDARD TITLE: OPTOMETRY NOTE DATE OF NOTE: NOV 13, 2024@11:27 ENTRY DATE: NOV 13, 2024@11:27:13 AUTHOR: GIOVANI MANE EXP COSIGNER: URGENCY: STATUS: COMPLETED OPTOMETRY NOTE Has ADDENDA Adjusted one pair from 2020. Per request, duplicated pair from 2020 with color change. The quote provided below is for informational purposes only. Please verify prior to the creation of a purchase order. CYNDI O [facility] 1065 RX INFORMATION OD -0.25 -0.75 X97 Add:+2.50 Pzm:0.00 Dir: Prz2:0.00 Dir2: OS -1.50 -1.00 X84 Add:+2.50 Pzm:0.00 Dir: Prz2:0.00 Dir2: FITTING INFORMATION FPD: NPD: [place]:R:34 L:34 SEG HT:R:18 L:18 Tint:None Shade:None VA Billable Items FRAME: FX6 COFFEE 5320-014 Right Lens: POLY VA PROGRESSIVE 1.586 POLY Left Lens: POLY [place] PROGRESSIVE 1.586 POLY KLEAR ANTI-REFLECTIVE COATING CLIN items [employer] - [place] Coating 0004 - Progressive - Glass Plastic Poly /kody/ GIOVANI MANE VEHICLE CONTROLS ENGINEER Signed: 11/13/2024 11:28 Receipt Acknowledged By: 11/15/2024 16:08 /kody/ MAIKOL NOYOLA OPTOMETRY TECH 11/15/2024 ADDENDUM STATUS: COMPLETED PDS Oil Pumper ordered patient 1 pair(s) of PAL eyeglasses, and adjusted 1 pair of eyeglasses on 11/13/2024 as directed by provider. Optometry Health Calender Supervisor entered consult(s) for order on behalf of provider. /kody/ MAIKOL NOYOLA OPTOMETRY TECH Signed: 11/15/2024 16:12 GIOVANI MANE [facility]
== END 2024-11-26 10:13 | disposition home or self-care (01) ==
PROVIDERS: PCP Internal Medicine; Visit Provider Hospitalist
DX: J41.8 Mixed simple and mucopurulent chronic bronchitis (principal); G47.33 Obstructive sleep apnea (adult) (pediatric); J18.0 Bronchopneumonia, unspecified organism
CPT/HCPCS: 99214; G2211

== ENCOUNTER → 2024-11-26 09:39 | Outpatient (BNVA) | payer MEDICARE, SELFPAY | PROVIDERS: PCP Internal Medicine; Visit Provider Hospitalist | DX: J41.8 Mixed simple and mucopurulent chronic bronchitis (principal); J18.0 Bronchopneumonia, unspecified organism; G47.33 Obstructive sleep apnea (adult) (pediatric) | CPT/HCPCS: 99212 ==